=== PATIENT | male | born 1990 | race Caucasian/White ===

== ENCOUNTER 2016-08-03 13:45 | Emergency (ER) | payer SELFPAY ==
[2016-08-03 14:08] VITALS: BP 140/88; PULSE 75; TEMP 98.5; BMI 39.9
--- NOTE | 2016-08-03 14:09 | PDOC ---
History of Present Illness <Leah Cid - Last Filed: 08/03/16 15:07> - General History Source: Patient Exam Limitations: No Limitations - History of Present Illness Initial Comments: 26 yo M no PMH presents with R knee pain for past 6 days. 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 He noted the pain first over the weekend (it is now saturday), has progressively worsened over the week. He states that he has taken tylenol, naproxen, motrin, and oxycodone for the pain, they are not helping. He has continued to work despite the pain. He states that it is swollen, tender, feels warm compared to the L knee. He has difficulty ranging it due to pain. <Angela Mcmanus - Last Filed: 08/03/16 18:47> - General Chief Complaint: Pain Stated Complaint: RIGHT KNEE PAIN Time Seen by Provider: 08/03/16 13:55 Past History <Leah Cid - Last Filed: 08/03/16 15:07> - Past Medical History Kidney Stones: Yes Other medical history: GOUT - Surgical History Cholecystectomy: Yes - Psycho/Social/Smoking Cessation Hx Anxiety: No Suicidal Ideation: No Smoking Status: Yes Smoking History: Former smoker Have you smoked in the past 12 months: No Number of Cigarettes Smoked Daily: 0 If you are a former smoker, when did you quit?: 2016 Information on smoking cessation initiated: No 'Breaking Loose' booklet given: 11/07/13 Hx Alcohol Use: No Drug/Substance Use Hx: Yes (MARIJUANA) Substance Use Type: Alcohol, Marijuana <Angela Mcmanus - Last Filed: 08/03/16 18:47> - Past Medical History Allergies/Adverse Reactions: Allergies Allergy/AdvReac Type Severity Reaction Status Date / Time No Known Allergies Allergy Verified 08/03/16 14:00 Home Medications: Ambulatory Orders Allopurinol 300 mg PO DAILY 08/03/16 Ibuprofen [Motrin -] 600 mg PO TID PRN #21 tablet 08/03/16 Methylprednisolone [Medrol Dose Ben] 4 mg PO ASDIR #21 tablet 08/03/16 Oxycodone HCl/Acetaminophen [Percocet 5-325 mg Tablet] 1 tab PO Q6H PRN #12 tablet MDD 4 tabs 08/03/16 Review of Systems - Review of Systems Able to Perform ROS?: Yes Comments:: GENERAL/CONSTITUTIONAL: No fever or chills. No weakness. HEAD, EYES, EARS, NOSE AND THROAT: No change in vision. No ear pain or discharge. No sore throat. CARDIOVASCULAR: No chest pain or shortness of breath. RESPIRATORY: No cough, wheezing, or hemoptysis. GASTROINTESTINAL: No nausea, vomiting, diarrhea or constipation. GENITOURINARY: No dysuria, frequency, or change in urination. MUSCULOSKELETAL: +R knee pain and swelling. No neck or back pain. SKIN: No rash NEUROLOGIC: No headache, vertigo, loss of consciousness, or change in strength/ sensation. ENDOCRINE: No increased thirst. No abnormal weight change. HEMATOLOGIC/LYMPHATIC: No anemia, easy bleeding, or history of blood clots. ALLERGIC/IMMUNOLOGIC: No hives or skin allergy. <Angela Mcmanus - Last Filed: 08/03/16 18:47> *Physical Exam - Vital Signs Last Vital Signs Temp Pulse Resp BP Pulse Ox 98.5 F 75 16 140/88 100 08/03/16 13:55 08/03/16 13:55 08/03/16 13:55 08/03/16 13:55 08/03/16 13:55 <Leah Cid - Last Filed: 08/03/16 15:07> - Vital Signs Last Vital Signs Temp Pulse Resp BP Pulse Ox 98.5 F 75 16 140/88 100 08/03/16 13:55 08/03/16 13:55 08/03/16 13:55 08/03/16 13:55 08/03/16 13:55 - Physical Exam Comments: GENERAL: Awake, alert, and fully oriented, in no acute distress EXTREMITIES: R knee with slightly decreased active ROM due to pain (has difficulty fully extending the lower leg). +Moderate R knee effusion. No warmth , no erythema overlying. No ligamentous instability. +Pain elicited on stressing the medial meniscus. Remainder of extremities with normal range of motion, no edema. No clubbing or cyanosis. No cords, erythema, or tenderness NEUROLOGICAL: Cranial nerves II through XII grossly intact. Normal speech, normal gait SKIN: Warm, Dry, normal turgor, no rashes or lesions noted. <Angela Mcmanus - Last Filed: 08/03/16 18:47> ED Treatment Course - RADIOLOGY Radiograph Interpretation: 08/03/16 15:07 Right knee x-ray as reported by Dr. Keating reports suprapatellar joint effusion <Leah Cid - Last Filed: 08/03/16 15:07> Medical Decision Making - Medical Decision Making 08/03/16 15:10 Symptoms likely due to ligamentous injury in the knee, possibly the meniscus. No signs of septic joint. I-Stop Reference #: [id number]- no red flags. Will give rx for percocet, motrin, and medrol dose ben. Patient recently lost his insurance, so I will give him follow-up information for the [facility]. Also counseled him to fill out the paperwork to reinstate his insurance, or apply under the RO. I ISHAN-wrapped his knee, as he has pain with straightening his leg, immobilizer would be painful. He declined crutches. <Angela Mcmanus - Last Filed: 08/03/16 18:47> *DC/Admit/Observation/Transfer - Attestations Scribe Attestion: 08/03/16 15:08 Documentation prepared by Leah Cid, acting as medical/surgery registered nurse for Angela Mcmanus MD. <Leah Cid - Last Filed: 08/03/16 15:07> - Discharge Dispostion Admit: No <Angela Mcmanus - Last Filed: 08/03/16 18:47> Diagnosis at time of Disposition: Knee pain, right Qualifiers: Chronicity: acute Qualified Code(s): M25.561 - Pain in right knee - Discharge Dispostion Disposition: HOME Condition at time of disposition: Stable - Prescriptions Prescriptions: Methylprednisolone [Medrol Dose Ben] 4 mg PO ASDIR #21 tablet Ibuprofen [Motrin -] 600 mg PO TID PRN #21 tablet PRN Reason: Pain Oxycodone HCl/Acetaminophen [Percocet 5-325 mg Tablet] 1 tab PO Q6H PRN #12 tablet MDD 4 tabs PRN Reason: Severe Pain - Referrals Referrals: Alen Henderson MD [Staff Physician] - Cassie Guthrie MD [Staff Physician] - Dena Siddiqui MD [Staff Physician] - - Patient Instructions Printed Discharge Instructions: DI for Knee Pain
== END 2016-08-03 15:31 | disposition home or self-care (01) ==
LOC: FER 13:45
DX: M25.561 Pain in right knee (principal); Z87.442 Personal history of urinary calculi; Z87.891 Personal history of nicotine dependence
CPT/HCPCS: 73560-TC-RT; 99282-25

== ENCOUNTER 2016-11-30 07:03 | Emergency (ER) | payer OTHER ==
[2016-11-30] MEDS ORDERED: KETOROLAC TROMETHAMINE 30 MG/1 ML VIAL IVPUSH ONE (07:10)
[2016-11-30] MEDS ORDERED: SODIUM CHLORIDE 1,000 ML IV STA (07:10)
[2016-11-30 07:11] VITALS: BP 141/100; PULSE 55; TEMP 97.4; BMI 39.9
[2016-11-30] MEDS ORDERED: morphine CARPU-JECT 4 MG/1 ML DISP.SYRIN IVPUSH ONE (07:12)
[2016-11-30] MEDS ORDERED: KETOROLAC TROMETHAMINE 30 MG/1 ML VIAL ONE (07:21)
[2016-11-30] MEDS ORDERED: morphine CARPU-JECT 4 MG/1 ML DISP.SYRIN ONE (07:21)
[2016-11-30 07:28] LABS: BASOPHIL 1.8 % (0-2.0); EOSINOPHIL 0.9 % (0-4.5); MEAN CELL VOLUME 82.8 fl (80-96); MEAN PLT VOLUME 8.4 fl (7.5-11.1); NEUTROPHILS 51.3 % (42.8-82.8); PLATELET COUNT 279 K/MM3 (134-434); RDW 13.1 % (11.9-15.9); WHITE BLOOD COUNT 10.5 K/mm3 (4.0-10.8)
--- NOTE | 2016-11-30 07:51 | PDOC ---
History of Present Illness - General Chief Complaint: Pain, Acute Stated Complaint: LT FLANK PAIN Time Seen by Provider: 11/30/16 07:09 History Source: Patient Exam Limitations: No Limitations - History of Present Illness Initial Comments: 11/30/16 07:14 This patient is a 26 yo M with a history of gout and kidney stones Pt states that he was well yesterday He awoke at approximately 5 am for work and noted left flank pain Pain is described as sharp, rate of 10/10, located in flank, pain is now constant (previously, pain was intermittent) No fevers or chills No hematuria, no dysuria Pt states he has previously had a kidney stone that did not require surgical intervention PMH: gout PSH: Cholecystectomy Meds: denies ALL: NKDA Social: denies alcohol, drug, cigarette use, 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 CARDIOVASCULAR: No: chest pain, lightheadedness, palpitations, syncope RESPIRATORY: No: cough, shortness of breath, wheezing, hemoptysis, stridor. GASTROINTESTINAL: Yes: nausea and vomiting x 2 No: diarrhea, abdominal cramping GENITOURINARY: Yes: left flank pain No: dysuria, hematuria, frequency, urgency, MUSCULOSKELETAL: Yes: flank pain No: neck pain, joint pain, muscle swelling or pain GENERAL: The patient is in no acute distress. HEAD: Normal with no signs of trauma. EYES: PERRLA, EOMI, sclera anicteric, conjunctiva clear. ENT: Ears normal, nares patent, oropharynx clear without exudates. Moist mucous membranes. LUNGS: Breath sounds equal, clear to auscultation bilaterally. No wheezes, and no crackles. HEART: Regular rate and rhythm, normal S1 and S2 without murmur, rub or gallop. ABDOMEN: Soft, LLQ tender to palpation, left flank CVA tenderness. No guarding , no rebound. No masses palpable. EXTREMITIES: Normal range of motion, no edema. No clubbing or cyanosis. No erythema, or tenderness. NEUROLOGICAL: Cranial nerves II through XII grossly intact. Normal speech. No focal neurological deficits. MUSCULOSKELETAL: Back non-tender to palpation, no CVA tenderness SKIN: Warm, Dry, normal turgor, no rashes or lesions noted. 11/30/16 08:24 Past History - Past Medical History Allergies/Adverse Reactions: Allergies Allergy/AdvReac Type Severity Reaction Status Date / Time No Known Allergies Allergy Verified 08/03/16 14:00 Home Medications: Ambulatory Orders Naproxen [Naprosyn -] 500 mg PO BID PRN #14 tablet 11/30/16 Oxycodone HCl/Acetaminophen [Percocet 5-325 mg Tablet -] 1 tab PO Q6H PRN #12 tablet MDD 4 11/30/16 Tamsulosin HCl [Flomax] 0.4 mg PO HS #10 capsule 11/30/16 Kidney Stones: Yes - Surgical History Cholecystectomy: Yes - Psycho/Social/Smoking Cessation Hx Anxiety: No Suicidal Ideation: No Smoking Status: Yes Smoking History: Unknown if ever smoked Have you smoked in the past 12 months: No Number of Cigarettes Smoked Daily: 0 If you are a former smoker, when did you quit?: 2015 'Breaking Loose' booklet given: 11/07/13 Hx Alcohol Use: No Drug/Substance Use Hx: Yes (MARIJUANA) Substance Use Type: Alcohol, Marijuana *Physical Exam - Vital Signs Last Vital Signs Temp Pulse Resp BP Pulse Ox 97.4 F L 55 L 18 141/100 97 11/30/16 07:08 11/30/16 07:08 11/30/16 07:08 11/30/16 07:08 11/30/16 07:08 ED Treatment Course - LABORATORY CBC & Chemistry Diagram: 11/30/16 07:15 11/30/16 07:20 - RADIOLOGY Radiology Studies Ordered: Category Date Time Status SPIRAL- RENAL-STONE CT [CT] Stat CT Scan 11/30/16 07:12 Ordered Medical Decision Making - Medical Decision Making 11/30/16 08:23 POssible kidney stone No prior imaging in system Will do: labs CT NS Pain control Will re assess 11/30/16 08:23 Laboratory Tests 11/30/16 11/30/16 11/30/16 07:11 07:15 07:20 WBC 10.5 Hgb 16.2 Hct 46.4 Plt Count 279 BUN 14 Creatinine 1.0 Urine Protein 1+ H Urine Blood 3+ H Urine Nitrite Negative Ur Leukocyte Esterase Negative 11/30/16 08:24 Pain is now 5/10 Pt has heart burn Refuses Maalox 11/30/16 09:06 4-5 MM proximal stone with mild hydro Will discharge to home with Urology follow up No signs of uti *DC/Admit/Observation/Transfer Diagnosis at time of Disposition: Kidney stone on left side - Discharge Dispostion Disposition: HOME Condition at time of disposition: Stable Admit: No - Prescriptions Prescriptions: Tamsulosin HCl [Flomax] 0.4 mg PO HS #10 capsule Naproxen [Naprosyn -] 500 mg PO BID PRN #14 tablet PRN Reason: Pain Oxycodone HCl/Acetaminophen [Percocet 5-325 mg Tablet -] 1 tab PO Q6H PRN #12 tablet MDD 4 PRN Reason: Severe Pain - Patient Instructions Printed Discharge Instructions: DI for Kidney Stones Additional Instructions: Mr. Lou Thank you for coming into the emergency Department today. You have a left-sided kidney stone. Please stay hydrated, take pain medications as prescribed. You should follow up with a urologist. You should strain your urine as well Return to the ER for fevers, chills, increased/intractable pain, any other concerns or complaints - Post Discharge Activity Work/School Note: Back to Work
[2016-11-30 07:58] LABS: PH,URINE 5.5 (4.5-8); URINE BILIRUBIN Negative (NEGATIVE); URINE BLOOD 3+ (NEGATIVE); URINE GLUCOSE (UA) Negative (NEGATIVE); URINE KETONE Negative (NEGATIVE); URINE LEUK ESTERASE Negative (NEGATIVE); URINE NITRITE Negative (NEGATIVE); URINE PROTEIN 1+ (NEGATIVE); URINE UROBILINOGEN 0.2 (0.2-1.0)
[2016-11-30 07:59] LABS: URINE APPEARANCE CLOUDY; URINE COLOR YELLOW
[2016-11-30 08:21] LABS: ANION GAP 11 (8-16); CALCIUM 9.7 mg/dl (8.4-10.2); CO2 21 mmol/L (22-28); GLUCOSE,RANDOM 123 mg/dl (74-106)
[2016-11-30 12:48] LABS: URINE BACTERIA NEGATIVE /hpf (NEGATIVE); URINE RBC 20-30 /hpf (0-3); URINE WBC 0-2 (3-5)
== END 2016-11-30 09:15 | disposition home or self-care (01) ==
LOC: FER 07:03
PROC: 3E0333Z Introduction of Anti-inflammatory into Peripheral Vein, Percutaneous Approach (ICD-10-PCS; principal; 2016-11-30)
PROC: 3E033NZ Introduction of Analgesics, Hypnotics, Sedatives into Peripheral Vein, Percutaneous Approach (ICD-10-PCS; 2016-11-30)
PROC: 3E0337Z Introduction of Electrolytic and Water Balance Substance into Peripheral Vein, Percutaneous Approach (ICD-10-PCS; 2016-11-30)
DX: N23 Unspecified renal colic (principal)
CPT/HCPCS: 36415; 74176; 80048; 81003; 81015; 85025; 87086; 99282-25

== ENCOUNTER 2017-06-16 07:36 | Emergency (ER) | payer SELFPAY ==
[2017-06-16] MEDS ORDERED: IBUPROFEN 600 MG TABLET (FP) PO ONE ×2 (08:10→08:26)
--- NOTE | 2017-06-16 08:10 | PDOC ---
History of Present Illness - General Chief Complaint: Pain Stated Complaint: rt wrist pain Time Seen by Provider: 06/16/17 07:42 History Source: Patient Exam Limitations: No Limitations - History of Present Illness Initial Comments: 06/16/17 07:47 Pt presents to the ED complaining of R wrist pain that began after lifting weights at the gym. Denies injuries. 06/16/17 08:25 Occurred: reports: yesterday Severity: reports: mild Upper Extremity Pain Location: right: wrist Method of Injury: reports: unknown Modifying Factors: improves with: None Extremity Pain Location - Extremity Pain Location Extremity Pain Locations: right: forearm (pain in ulnar side of R wrist) Past History - Past Medical History Allergies/Adverse Reactions: Allergies Allergy/AdvReac Type Severity Reaction Status Date / Time No Known Allergies Allergy Verified 06/16/17 07:38 Home Medications: Ambulatory Orders Oxycodone HCl/Acetaminophen [Percocet 5-325 mg Tablet -] 1 tab PO Q6H PRN #12 tablet MDD 4 11/30/16 Acetaminophen [Tylenol] 500 mg PO PRN PRN 06/16/17 Ibuprofen 600 mg PO TID PRN #30 tablet 06/16/17 Ibuprofen [Motrin -] 800 mg PO PRN PRN 06/16/17 Kidney Stones: Yes - Surgical History Cholecystectomy: Yes - Suicide/Smoking/Psychosocial Hx Smoking Status: Yes Smoking History: Unknown if ever smoked Have you smoked in the past 12 months: No Number of Cigarettes Smoked Daily: 0 If you are a former smoker, when did you quit?: 2015 'Breaking Loose' booklet given: 11/07/13 Hx Alcohol Use: No Drug/Substance Use Hx: Yes (MARIJUANA) Substance Use Type: Alcohol, Marijuana Review of Systems - Review of Systems Able to Perform ROS?: Yes Is the patient limited Maldivian proficient: No Musculoskeletal: Yes: Symptoms Reported, Joint Pain *Physical Exam - Physical Exam Musculoskeletal: positive: Normal Inspection Extremity: positive: Normal Capillary Refill, Normal Inspection, Pelvis Stable. negative: Normal Range of Motion (+ tendernes at the wrist. + slightly decreased ROM.), Tender, Coldness, Cyanosis, Delayed Capillary Refill, Pedal Edema, Swelling, Calf Tenderness, Erythema, Inflammation, Other *DC/Admit/Observation/Transfer Diagnosis at time of Disposition: Wrist strain Qualifiers: Encounter type: initial encounter Laterality: right Qualified Code(s): S66.911A - Strain of unspecified muscle, fascia and tendon at wrist and hand level, right hand, initial encounter - Discharge Dispostion Disposition: HOME Condition at time of disposition: Good Admit: No - Prescriptions Prescriptions: Ibuprofen 600 mg PO TID PRN #30 tablet PRN Reason: Pain - Referrals - Patient Instructions Printed Discharge Instructions: DI for Wrist Strain Additional Instructions: return to the ED for severe pain, worsening swelling, cold numb blue swollen hand or wrist, other new or worsening symptoms. Follow up with orthopedics if symptoms are not improving within one week. - Post Discharge Activity
[2017-06-16 09:38] VITALS: BP 144/100; PULSE 73; TEMP 98.3; BMI 36.9
== END 2017-06-16 08:43 | disposition home or self-care (01) ==
LOC: FER 07:36
DX: S66.911A Strain of unspecified muscle, fascia and tendon at wrist and hand level, right hand, initial encounter (principal); X58.XXXA Exposure to other specified factors, initial encounter; Y93.89 Activity, other specified; Y92.9 Unspecified place or not applicable
CPT/HCPCS: 73110-TC-RT-FY; 99282-25

== ENCOUNTER 2017-07-22 20:30 | Emergency (ER) | payer SELFPAY ==
--- NOTE | 2017-07-22 20:41 | PDOC ---
History of Present Illness - General Chief Complaint: Pain Stated Complaint: FLANK/BACK PAIN, RIGHT KNEE SWELLING Time Seen by Provider: 07/22/17 20:39 History Source: Patient Exam Limitations: No Limitations - History of Present Illness Initial Comments: 07/22/17 23:33 This is a 27-year-old male who comes in complaining of right knee discomfort and pain. Patient is been here a number times in the past for similar symptoms. Patient had a job that required a lot of kneeling and was diagnosed with prepatellar bursitis. Patient said he recently quit his job and is now has a different job that requires a lot of walking. Patient doesn't have any insurance so he didn't follow up with anybody regarding the discomfort. Patient otherwise denies any fevers or chills. Patient also was complaining of some mild urinary symptoms review of his history was noted that he approximately 4 days ago he was diagnosed with a 8 mm distal ureteral stone which is also not followed up with anybody he denies any fevers or chills. Patient really was told that he has some renal insufficiency so should not taking any NSAIDs. Patient also has a history of gout and did start himself on allopurinol. PAST MEDICAL HISTORY right knee: There is some prepatellar swelling and a palpable collection as per history of present illness PAST SURGICAL HISTORY: no significant history FAMILY HISTORY: no pertinant history SOCIAL HISTORY: Pt lives with family and is employed. MEDICATIONS: reviewed ALLERGIES: As per nursing notes Review of Systems General: No fevers or chills, no weakness, no weight loss HEENT: No change in vision. No sore throat,. No ear pain CardioVascular: No chest pain or shortness of breath Respiratory:No cough, or wheezing. Gastrointestinal: no nausea, vomitting, diarrhea or constipation, No rectal bleeding Genitourinary: No dysuria, hematuria, or frequency Musculoskeletal: No joint or muscle pain or swelling Neurologic: No headache, vertigo, dizziness or loss of consciousness Psychiatric: nor depression Skin: No rashes or easy bruising Endocrine: no increased thirst or abnormal weight change Allergic: no skin or latex allergy All other systems reviewed and normal GENERAL: The patient is awake, alert, and fully oriented, in no acute distress. HEAD: Normal with no signs of trauma. EYES: Pupils equal, round and reactive to light, extraocular movements intact, sclera anicteric, conjunctiva clear. EXTREMITIES: Normal range of motion, no edema. There is prepatellar swelling and a palpable collection. There is no bony tenderness. There is no erythema, there is a slight increase in warmth. Neurovascular distal is intact. NEUROLOGICAL: Normal speech, normal gait. grossly intact PSYCH: Normal mood, normal affect. SKIN: Warm, Dry, normal turgor, no rashes or lesions noted. Assessment and plan: This is a 27-year-old male with prepatellar bursitis that is cleared. Patient was given an Michael wrap and his job no longer requires significant amount of kneeling on his knees so most likely will resolve with just some Michael wrap compression. However he was told he needs to followed up with an orthopedist if it does not resolve. In addition to that patient was told it is very important that he follow-up with a urologist regarding his kidney stone. Patient was noted to have a mild urinary tract infection in the setting of a stone that may have recently passed or not past I will start him on Macrobid. Past History - Past Medical History Allergies/Adverse Reactions: Allergies Allergy/AdvReac Type Severity Reaction Status Date / Time No Known Allergies Allergy Verified 07/22/17 20:43 Home Medications: Ambulatory Orders Oxycodone HCl/Acetaminophen [Percocet 5-325 mg Tablet] 1 tab PO Q6H PRN #12 tablet MDD 4 07/18/17 Tamsulosin HCl [Flomax] 0.4 mg PO DAILY #10 capsule 07/18/17 Allopurinol 300 mg PO DAILY 07/22/17 Colchicine [Colcrys] 0.6 mg PO DAILY 07/22/17 Nitrofurantoin Monohyd/M-Cryst [Macrobid -] 100 mg PO BID #14 capsule 07/22/17 COPD: No Kidney Stones: Yes - Surgical History Cholecystectomy: Yes - Suicide/Smoking/Psychosocial Hx Smoking Status: Yes Smoking History: Former smoker Have you smoked in the past 12 months: No Number of Cigarettes Smoked Daily: 0 If you are a former smoker, when did you quit?: 2015 'Breaking Loose' booklet given: 11/07/13 Hx Alcohol Use: No Drug/Substance Use Hx: No Substance Use Type: Alcohol, Marijuana *DC/Admit/Observation/Transfer Diagnosis at time of Disposition: Cystitis Prepatellar bursitis Qualifiers: Laterality: right Qualified Code(s): M70.41 - Prepatellar bursitis, right knee - Discharge Dispostion Disposition: HOME Condition at time of disposition: Good Admit: No - Prescriptions Prescriptions: Nitrofurantoin Monohyd/M-Cryst [Macrobid -] 100 mg PO BID #14 capsule - Referrals - Patient Instructions Additional Instructions: Continue to take your Percocet as needed for pain in addition to that you can take ibuprofen 2 tablets once a day try to limit the ibuprofen as much as possible. Wear the Michael wrap to help give the knee some support. [facility] and try to get an appointment to follow-up in the orthotic clinic and the urology clinic. Return to the emergency department immediately with ANY new, persistent or worsening symptoms. Continue any medications as previously prescribed by your physician. You should follow up with your primary doctor as soon as possible regarding today's emergency department visit. . Please make sure your doctor reviews the results of your emergency evaluation. Thank you for coming to the Emergency Department today for your care. It was a pleasure to see you today. Please note that your evaluation is INCOMPLETE until you follow-up with your doctor. - Post Discharge Activity
[2017-07-22 20:49] LABS: URINE APPEARANCE Clear; URINE BILIRUBIN Negative (NEGATIVE); URINE GLUCOSE (UA) Negative (NEGATIVE); URINE KETONE Negative (NEGATIVE); URINE LEUK ESTERASE Negative (NEGATIVE); URINE NITRITE Negative (NEGATIVE); URINE UROBILINOGEN 0.2 (0.2-1.0)
[2017-07-22 20:50] LABS: URINE BLOOD 2+ (NEGATIVE); URINE COLOR YELLOW; URINE PROTEIN 3+ (NEGATIVE)
[2017-07-22 20:52] VITALS: BP 153/112; PULSE 92; TEMP 99.2; BMI 36.9
[2017-07-22 21:00] LABS: URINE BACTERIA FEW /hpf (NEGATIVE); URINE WBC 0-2 (0-2)
[2017-07-22] MEDS ORDERED: NITROFURANTOIN MACROCRYSTAL 50 MG CAPSULE (FP) PO SCH (21:30)
== END 2017-07-22 21:24 | disposition home or self-care (01) ==
LOC: FER 20:30
DX: M70.41 Prepatellar bursitis, right knee (principal); N30.90 Cystitis, unspecified without hematuria; Z87.891 Personal history of nicotine dependence; Z87.442 Personal history of urinary calculi
CPT/HCPCS: 81003; 81015; 99283-25

== ENCOUNTER 2018-03-01 20:29 | Emergency (ER) | payer OTHER ==
[2018-03-01 20:39] VITALS: BP 153/88; PULSE 86; TEMP 98.3; BMI 34.0
--- NOTE | 2018-03-01 21:18 | PDOC ---
History of Present Illness - General History Source: Patient Exam Limitations: No Limitations - History of Present Illness Initial Comments: 03/01/18 22:33 The patient is a 27 year old male, with a significant PMH of gout who presents to the emergency department with left ankle and heel pain with swelling since yesterday night. 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 Patient took his colchicine this morning and at 2PM today. Patient admits to having similar pain from his gout in the past. Patient denies eating anything that may have set off his gout. Patient states he is unable to bear weight on his left foot. Patient is in the process of finding a new PCP. The patient denies chest pain, shortness of breath, headache and dizziness. Denies fever, chills, nausea, vomit, diarrhea and constipation. Denies dysuria, frequency, urgency and hematuria. Allergies: NKA Past surgical history: None reported. Social history: No reported alcohol, drug or cigarette use. <Maria Guadalupe Cruz - Last Filed: 03/01/18 22:33> <Arleen Krishnan - Last Filed: 03/02/18 03:11> - General Chief Complaint: Pain, Acute Stated Complaint: PAIN LEFT HEEL AND ANKLE Time Seen by Provider: 03/01/18 20:31 Past History <Maria Guadalupe Cruz - Last Filed: 03/01/18 22:33> - Past Medical History COPD: No Kidney Stones: Yes Other medical history: GOUT - Surgical History Cholecystectomy: Yes - Suicide/Smoking/Psychosocial Hx Smoking Status: Yes Smoking History: Former smoker Have you smoked in the past 12 months: No Number of Cigarettes Smoked Daily: 0 If you are a former smoker, when did you quit?: 2016 Information on smoking cessation initiated: No 'Breaking Loose' booklet given: 11/07/13 Hx Alcohol Use: No Drug/Substance Use Hx: No Substance Use Type: Alcohol, Marijuana <Arleen Krishnan - Last Filed: 03/02/18 03:11> - Past Medical History Allergies/Adverse Reactions: Allergies Allergy/AdvReac Type Severity Reaction Status Date / Time No Known Allergies Allergy Verified 03/01/18 20:31 Home Medications: Ambulatory Orders NK [No Known Home Medication] 03/01/18 Review of Systems - Review of Systems Able to Perform ROS?: Yes Comments:: 03/01/18 22:34 ADULT ROS GENERAL/CONSTITUTIONAL: No fever or chills. No weakness. HEAD, EYES, EARS, NOSE AND THROAT: No change in vision. No ear pain or discharge. No sore throat. CARDIOVASCULAR: No chest pain or shortness of breath. RESPIRATORY: No cough, wheezing, or hemoptysis. GASTROINTESTINAL: No nausea, vomiting, diarrhea or constipation. GENITOURINARY: No dysuria, frequency, or change in urination. MUSCULOSKELETAL: No muscle swelling or pain. No neck or back pain. (+) Left ankle and heel pain with swelling. SKIN: No rash NEUROLOGIC: No headache, vertigo, loss of consciousness, or change in strength/ sensation. ENDOCRINE: No increased thirst. No abnormal weight change. HEMATOLOGIC/LYMPHATIC: No anemia, easy bleeding, or history of blood clots. ALLERGIC/IMMUNOLOGIC: No hives or skin allergy. <Maria Guadalupe Cruz - Last Filed: 03/01/18 22:33> *Physical Exam - Vital Signs Last Vital Signs Temp Pulse Resp BP Pulse Ox 98.3 F 86 17 153/88 100 03/01/18 20:32 03/01/18 20:32 03/01/18 20:32 03/01/18 20:32 03/01/18 20:32 - Physical Exam Comments: 03/01/18 22:34 ADULT EXAM GENERAL: Awake, alert, and fully oriented, in no acute distress HEAD: No signs of trauma EYES: PERRLA, EOMI, sclera anicteric, conjunctiva clear ENT: Auricles normal inspection, hearing grossly normal, nares patent, oropharynx clear without exudates. Moist mucosa NECK: Normal ROM, supple, no lymphadenopathy, JVD, or masses LUNGS: Breath sounds equal, clear to auscultation bilaterally. No wheezes, and no crackles HEART: Regular rate and rhythm, normal S1 and S2, no murmurs, rubs or gallops ABDOMEN: Soft, nontender, normoactive bowel sounds. No guarding, no rebound. No masses EXTREMITIES: No clubbing or cyanosis. No cords, erythema. (+) Moderately edematous left ankle and slightly warm to touch. (+) Painful with active and passive range of motion. (+) Left calcaneus is slightly tender and edematous. Remainder of the foot is nontender and not edematous. NEUROLOGICAL: Cranial nerves II through XII grossly intact. Normal speech, normal gait SKIN: Warm, Dry, normal turgor, no rashes or lesions noted. <Maria Guadalupe Cruz - Last Filed: 03/01/18 22:33> - Vital Signs Last Vital Signs Temp Pulse Resp BP Pulse Ox 98.3 F 86 17 153/88 100 03/01/18 20:32 03/01/18 20:32 03/01/18 20:32 03/01/18 20:32 03/01/18 20:32 <Arleen Krishnan - Last Filed: 03/02/18 03:11> Progress Note - Progress Note Progress Note: Documentation has been prepared under my direction and personally reviewed by me in its entirety. I attest that this documented accurately reflects all work, treatment, procedures and medical decision making performed by me. <Arleen Krishnan - Last Filed: 03/02/18 03:11> Medical Decision Making - Medical Decision Making As noted above, this 27-year-old man with a history of gout presents with several day history of progressive left ankle pain. Pain is consistent with his gout episodes and he has no known trauma to the area. Exam as noted. Left ankle/foot x-ray performed: No evidence of acute fracture/dislocation or DJD. Patient states that he normally does not take nonsteroidal anti-inflammatory medication for his acute gout episodes because he wants to avoid any renal damage secondary to NSAIDs (patient had received ibuprofen 600 mg by mouth when he arrived in the ER ). He states he normally takes colchicine and smokes marijuana for relief of his acute episodes. He states he took colchicine yesterday (only 2 doses) without significant relief. He also has been prescribed allopurinol but is not compliant with it because he wants to avoid taking medications. He states that he has recently received insurance and is planning on following up with a general medical doctor in the near future. Patient will be given crutches for ambulation and work note (no work until Saturday, March 12). Meanwhile, the patient should continue the colchicine as prescribed; he can also take occasional anti-inflammatory medications. He should plan on following up with his new general doctor within the next 48-72 hours. <Arleen Krishnan - Last Filed: 03/02/18 03:11> *DC/Admit/Observation/Transfer - Attestations Scribe Attestion: 03/01/18 22:34 Documentation prepared by Maria Guadalupe Cruz, acting as medical transcription radiology for Arleen Krishnan MD. <Maria Guadalupe Cruz - Last Filed: 03/01/18 22:33> <Arleen Krishnan - Last Filed: 03/02/18 03:11> Diagnosis at time of Disposition: Acute gout Qualifiers: Gout site: ankle Gout etiology: unspecified cause Laterality: left Qualified Code(s): M10.9 - Gout, unspecified - Discharge Dispostion Disposition: HOME Condition at time of disposition: Stable - Patient Instructions Printed Discharge Instructions: Gout Additional Instructions: continue colchicine as previously prescribed crutches for ambulation as needed no work until 03/12 followup with your doctor within the next 3 days - Post Discharge Activity Forms/Work/School Notes: Back to Work
[2018-03-01] MEDS ORDERED: IBUPROFEN 600 MG TABLET (FP) PO ONE (22:11)
== END 2018-03-01 22:34 | disposition home or self-care (01) ==
LOC: FER 20:29
DX: M10.9 Gout, unspecified (principal); Z87.891 Personal history of nicotine dependence
CPT/HCPCS: 73610-TC-LT-FY; 73630-TC-LT; 99281-25

== ENCOUNTER 2018-09-14 21:12 | Emergency (ER) | payer SELFPAY | END 2018-09-14 22:08 | disposition home or self-care (01) | LOC: FER 21:12 ==

== ENCOUNTER 2018-10-26 07:54 | Inpatient (IN) | payer SELFPAY ==
[2018-10-26] MEDS ORDERED: ONDANSETRON 4 MG/2 ML VIAL IVPB ONE (07:56)
[2018-10-26] MEDS ORDERED: KETOROLAC TROMETHAMINE 30 MG/1 ML VIAL IVPUSH ONE (07:56)
[2018-10-26] MEDS ORDERED: SODIUM CHLORIDE 1,000 ML IV STA ×2 (07:57→09:41)
[2018-10-26] MEDS ORDERED: ONDANSETRON 4 MG/2 ML VIAL ONE (08:03)
[2018-10-26] MEDS ORDERED: KETOROLAC TROMETHAMINE 30 MG/1 ML VIAL ONE (08:03)
--- NOTE | 2018-10-26 08:03 | PDOC ---
History of Present Illness - General Chief Complaint: Pain Stated Complaint: back pain, renal colic Time Seen by Provider: 10/26/18 07:56 History Source: Patient, Old Records Exam Limitations: No Limitations - History of Present Illness Initial Comments: 10/26/18 07:58 28 yo M c/ pmh renal colic p/w L flank pain since yesterday. Yesterday, noted some dull left sided intermittent pain radiating to LLQ. Pain subsided but intensified last night. Reported some nausea and vomiting. But denies fevers, chills. Associated with hematuria. States feels exactly like his previous kidney stones, which was years ago. Took some motrin overnight with some relief. Denies testicular or genital pain. Past History - Past Medical History Allergies/Adverse Reactions: Allergies Allergy/AdvReac Type Severity Reaction Status Date / Time No Known Allergies Allergy Verified 10/26/18 07:55 Home Medications: Ambulatory Orders NK [No Known Home Medication] 03/01/18 COPD: No Kidney Stones: Yes - Surgical History Cholecystectomy: Yes - Suicide/Smoking/Psychosocial Hx Smoking Status: Yes Smoking History: Former smoker Have you smoked in the past 12 months: No Number of Cigarettes Smoked Daily: 0 If you are a former smoker, when did you quit?: 2015 'Breaking Loose' booklet given: 11/07/13 Hx Alcohol Use: No Drug/Substance Use Hx: No Substance Use Type: Alcohol, Marijuana Review of Systems - Review of Systems Able to Perform ROS?: Yes Comments:: 10/26/18 08:00 GENERAL/CONSTITUTIONAL: [No fever or chills. No weakness. No weight change.] HEAD, EYES, EARS, NOSE AND THROAT: [No change in vision. No ear pain or discharge. No sore throat.] CARDIOVASCULAR: [No chest pain or shortness of breath.] RESPIRATORY: [No cough, wheezing, or hemoptysis.] GASTROINTESTINAL: [No diarrhea or constipation. No rectal bleeding.] + nausea/ vomiting. + left sided flank pain GENITOURINARY: [No dysuria, frequency, or change in urination.] MUSCULOSKELETAL: [No joint or muscle swelling or pain. No neck or back pain.] SKIN AND BREASTS: [No rash or easy bruising.] NEUROLOGIC: [No headache, vertigo, loss of consciousness, or loss of sensation.] PSYCHIATRIC: [No depression or anxiety.] ENDOCRINE: [No increased thirst. No abnormal weight change.] HEMATOLOGIC/LYMPHATIC: [No anemia, easy bleeding, or history of blood clots.] ALLERGIC/IMMUNOLOGIC: [No hives or skin allergy. No latex allergy.] *Physical Exam - Physical Exam Comments: 10/26/18 08:01 GENERAL: Awake, alert, and fully oriented, uncomfortable appearing. + Obese HEAD: No signs of trauma EYES: EOMI, sclera anicteric, conjunctiva clear ENT: Auricles normal inspection, hearing grossly normal, nares patent, oropharynx clear without exudates. Moist mucosa NECK: Normal ROM, supple ABDOMEN: Soft, mildly TTP LLQ. +Left sided CVA tenderness. No guarding, no rebound. No masses EXTREMITIES: Normal range of motion, no edema. NEUROLOGICAL: Cranial nerves II through XII grossly intact. Normal speech, normal gait SKIN: Warm, Dry, normal turgor, no rashes or lesions noted. ED Treatment Course - LABORATORY CBC & Chemistry Diagram: 10/26/18 08:15 10/26/18 08:15 - RADIOLOGY Radiology Studies Ordered: Category Date Time Status SPIRAL- RENAL-STONE CT [CT] Stat CT Scan 10/26/18 07:56 Ordered Medical Decision Making - Medical Decision Making 10/26/18 08:02 Impression: Likely renal colic. Will obtain spiral CT to r/o kidney stones. Labs including CBC, CMP, UA/UC IVF, anti-emetics, pain control and reassess. 10/26/18 09:12 CBC, BMP 10/26/18 08:15 10/26/18 08:15 CMP Sodium 138 mmol/L (136-145) 10/26/18 08:15 Potassium 4.3 mmol/L (3.5-5.1) 10/26/18 08:15 Chloride 103 mmol/L (98-107) 10/26/18 08:15 Carbon Dioxide 26 mmol/L (21-32) 10/26/18 08:15 Anion Gap 9 MMOL/L (8-16) 10/26/18 08:15 BUN 12.0 mg/dl (7-18) 10/26/18 08:15 Creatinine 1.6 mg/dl (0.55-1.3) H 10/26/18 08:15 Est GFR (CKD-EPI)AfAm 66.02 10/26/18 08:15 Est GFR (CKD-EPI)NonAf 56.96 10/26/18 08:15 Random Glucose 118 mg/dl (74-106) H 10/26/18 08:15 Calcium 9.4 mg/dl (8.5-10) 10/26/18 08:15 Total Bilirubin 1.0 mg/dl (0.2-1) 10/26/18 08:15 AST 59 U/L (15-37) H 10/26/18 08:15 ALT 67 U/L (13-61) H 10/26/18 08:15 Alkaline Phosphatase 45 U/L (45-117) 10/26/18 08:15 Total Protein 8.5 g/dl (6.4-8.2) H 10/26/18 08:15 Albumin 4.7 g/dl (3.4-5.0) 10/26/18 08:[address] demonstrates 7mm distal renal stone in ureter with mild to moderate hydronephrosis. Cr noted to be 1.6. Prior labs from 2018, shows Cr elevated, but pt reports no known CKD. Pt still in pain, requests more pain medications. Still awaiting patient to give us urine sample, pt is still receiving IV fluids. Given size of kidney stone, hydronephrosis, and Cr of 1.6, urologist Dr. Steve Cook paged. 10/26/18 09:[address] Garcia. Given the patient's circumstances, requests patient to be transferred to [facility] for more definitive management i.e. procedure. Plan discussed with patient who agrees with plan and for transfer to [facility] given equipment to perform procedure is at [facility]. Pt anticipated to go to OR tomorrow morning. Case discussed with [facility] hospitalist (pt has no PMD). Hospitalist accepts patient to [facility] to med/surg admission. Case discussed in detail with admitting physician including history, physical exam and ancillary studies. Admitting physician has assumed care for the patient, will follow all pending diagnostics and will complete the evaluation and treatment. 10/26/18 10:10 Urine Test Results Urine Color Yellow 10/26/18 09:45 Urine Appearance Clear 10/26/18 09:45 Urine pH 6.0 (4.5-8) 10/26/18 09:45 Urine Protein Trace (NEGATIVE) 10/26/18 09:45 Urine Glucose (UA) Negative (NEGATIVE) 10/26/18 09:45 Urine Ketones Trace (NEGATIVE) 10/26/18 09:45 Urine Blood 2+ (NEGATIVE) H 10/26/18 09:45 Urine Nitrite Negative (NEGATIVE) 10/26/18 09:45 Urine Bilirubin Negative (NEGATIVE) 10/26/18 09:45 Ur Leukocyte Esterase Negative (NEGATIVE) 10/26/18 09:45 UA reviewed. No signs of infection. *DC/Admit/Observation/Transfer Diagnosis at time of Disposition: Kidney stone on left side - Discharge Dispostion Condition at time of disposition: Stable Decision to Admit order: Yes - Referrals - Patient Instructions - Post Discharge Activity
[2018-10-26 08:43] LABS: BASO % 0.3 % (0-2.0); EOS % 0.4 % (0-4.5); HEMATOCRIT 46.4 % (35.4-49); LYMPH % 18.1 % (8-40); MCH 29.7 pg (25.7-33.7); MCHC 32.3 g/dl (32.0-35.9); MEAN CELL VOLUME 91.9 fl (80-96); MEAN PLT VOLUME 8.3 fl (7.5-11.1); MONO % 7.2 % (3.8-10.2); PLATELET COUNT 279 K/MM3 (134-434); RBC 5.05 M/mm3 (4.00-5.60); RDW 14.3 % (11.9-15.9)
[2018-10-26 08:59] LABS: ALBUMIN 4.7 g/dl (3.4-5.0); CALCIUM 9.4 mg/dl (8.5-10); CREATININE 1.6 mg/dl (0.55-1.3); POTASSIUM 4.3 mmol/L (3.5-5.1); TOT PROT 8.5 g/dl (6.4-8.2)
[2018-10-26] MEDS ORDERED: ACETAMINOPHEN 1000 MG/100 ML VIAL (NON FORMULARY) IVPB ONE (09:06)
[2018-10-26] MEDS ORDERED: ACETAMINOPHEN INJECTION 100 ML IVPB ONE (09:07)
[2018-10-26] MEDS ORDERED: morphine SULFATE 4 MG/ML VIAL ONE ×2 (09:07→09:41)
[2018-10-26] MEDS ORDERED: morphine CARPU-JECT 4 MG/1 ML DISP.SYRIN IVPUSH ONE ×2 (09:07→09:41)
[2018-10-26] MEDS ORDERED: morphine CARPU-JECT 4 MG/1 ML DISP.SYRIN IVPUSH PRN (10:28)
[2018-10-26] MEDS ORDERED: ACETAMINOPHEN 325 MG TABLET (FP) PO PRN (10:28)
[2018-10-26 10:29] LABS: URINE MUCUS 1+
--- NOTE | 2018-10-26 10:38 | HP ---
CHIEF COMPLAINT: Abdominal pain/ flank pain. PCP:None HISTORY OF PRESENT ILLNESS: This is a 28 year old male with a primary history significant for renal stones and obesity who presented to ER complaining of worsening abdominal pain with nausea and vomited x1 this AM. Pt reports of crampy/sharp abdominal pain (lower ) which started around 9AM yesterday,and also reports left flank pain. Pt denies cp, sob,cough, palpitations, fever, chills,dysuria or hematuria, testicular or genital pain.Reported feels exactly like his previous kidney stones, which was years ago. ER course was notable for: (1) CT abdomen/pelvis: 7mm distal renal stone in ureter with mild to moderate hydronephrosis, partially obstructive calculus. (2)wbc 12, afebrile, UA 2+ blood, no pyuria (3) Bun 12, cre 1.6 Recent Travel:No PAST MEDICAL HISTORY: Renal stones PAST SURGICAL HISTORY: GB sx > 10 yrs ago Social History: Smoking: Marijuana Alcohol:None Drugs: Marijuana Family History: Non- contributory Allergies No Known Allergies Allergy (Verified 10/26/18 07:55) HOME MEDICATIONS: Home Medications Medication Instructions Recorded NK [No Known Home Medication] 03/01/18 REVIEW OF SYSTEMS CONSTITUTIONAL: Absent: fever, chills, diaphoresis, generalized weakness, malaise, loss of appetite, weight change HEENT: Absent: rhinorrhea, nasal congestion, throat pain, throat swelling, difficulty swallowing, mouth swelling, ear pain, eye pain, visual changes CARDIOVASCULAR: Absent: chest pain, syncope, palpitations, irregular heart rate, lightheadedness , peripheral edema RESPIRATORY: Absent: cough, shortness of breath, dyspnea with exertion, orthopnea, wheezing, stridor, hemoptysis GASTROINTESTINAL: Absent: abdominal distension, nausea, vomiting, diarrhea, constipation, melena , hematochezia + Lower abdominal pain GENITOURINARY: Absent: dysuria, frequency, urgency, hesitancy, hematuria, flank pain, genital pain MUSCULOSKELETAL: Absent: myalgia, arthralgia, joint swelling, back pain, neck pain SKIN: Absent: rash, itching, pallor HEMATOLOGIC/IMMUNOLOGIC: Absent: easy bleeding, easy bruising, lymphadenopathy, frequent infections ENDOCRINE: Absent: unexplained weight gain, unexplained weight loss, heat intolerance, cold intolerance NEUROLOGIC: Absent: headache, focal weakness or paresthesias, dizziness, unsteady gait, seizure, mental status changes, bladder or bowel incontinence PSYCHIATRIC: Absent: anxiety, depression, suicidal or homicidal ideation, hallucinations. PHYSICAL EXAMINATION Vital Signs - 24 hr 10/26/18 10/26/18 07:55 10:31 Temperature 98.3 F 98.2 F Pulse Rate 63 Pulse Rate [ 71 Right] Respiratory 20 20 Rate Blood Pressure 191/110 H Blood Pressure 141/87 [Left Arm] O2 Sat by Pulse 99 99 Oximetry (%) GENERAL: Awake, alert, and fully oriented, in no acute distress. HEAD: Normal with no signs of trauma. EYES: Pupils equal, round and reactive to light, extraocular movements intact, sclera anicteric, conjunctiva clear. No lid lag. EARS, NOSE, THROAT: Ears normal, nares patent, oropharynx clear without exudates. Moist mucous membranes. NECK: Normal range of motion, supple without lymphadenopathy, JVD, or masses. LUNGS: Breath sounds equal, clear to auscultation bilaterally. No wheezes, and no crackles. No accessory muscle use. HEART: Regular rate and rhythm, normal S1 and S2 without murmur, rub or gallop. ABDOMEN: Soft, positive tenderness ( lower abdomen), not distended, normoactive bowel sounds, no guarding, no rebound, no masses. No hepatomegaly or splenomegaly. MUSCULOSKELETAL: Normal range of motion at all joints. No bony deformities or tenderness. positive left CVA tenderness. UPPER EXTREMITIES: 2+ pulses, warm, well-perfused. No cyanosis. No clubbing. No peripheral edema. LOWER EXTREMITIES: 2+ pulses, warm, well-perfused. No calf tenderness. No peripheral edema. NEUROLOGICAL: Cranial nerves II-XII intact. Normal speech. Normal gait. PSYCHIATRIC: Cooperative. Good eye contact. Appropriate mood and affect. SKIN: Warm, dry, normal turgor, no rashes or lesions noted, normal capillary refill. Laboratory Results - last 24 hr 10/26/18 10/26/18 10/26/18 08:15 08:15 09:45 WBC 12.0 H RBC 5.05 Hgb 15.0 Hct 46.4 MCV 91.9 MCH 29.7 MCHC 32.3 RDW 14.3 Plt Count 279 MPV 8.3 Absolute Neuts (auto) 8.9 Neutrophils % 74.0 D Lymphocytes % 18.1 D Monocytes % 7.2 Eosinophils % 0.4 Basophils % 0.3 Sodium 138 Potassium 4.3 Chloride 103 Carbon Dioxide 26 Anion Gap 9 BUN 12.0 Creatinine 1.6 H Est GFR (CKD-EPI)AfAm 66.02 Est GFR (CKD-EPI)NonAf 56.96 Random Glucose 118 H Calcium 9.4 Total Bilirubin 1.0 AST 59 H ALT 67 H Alkaline Phosphatase 45 Total Protein 8.5 H Albumin 4.7 Urine Color Yellow Urine Appearance Clear Urine pH 6.0 Urine Protein Trace Urine Glucose (UA) Negative Urine Ketones Trace Urine Blood 2+ H Urine Nitrite Negative Urine Bilirubin Negative Urine Urobilinogen 0.2 Ur Leukocyte Esterase Negative Urine RBC 10-20 Urine WBC 2-5 Urine Mucus 1+ ASSESSMENT/PLAN: This is a 28 year old male with a primary history significant for renal stones and obesity, admitted with obstructive calculus,hyronephrosis and MARILIN. *Abdominal pain, likely due to obstructive calculus -CT abdomen/pelvis: 7mm distal renal stone in ureter with mild to moderate hydronephrosis, partially obstructive calculus. -urology Dr. Garcia consulted from ER,rec to transfer pt to [facility] for stone removal and definitive management - pain control - IV hydration - UA with 2+ blood, no pyuria - afebrile with wbc 12 - will order Levaquin prophylactically as per urology *MARILIN - cre 1.6 on admission (cre 1.7 on 07/18/17, no reported hx of CKD) - IV hydration -will f/u on [employer] in am *Transaminase - poss due to fatty liver,chronically elevated LFT's) - asymptomatic - CT abdomen: No significant abnormalities of liver * F/E/N Regular diet, IVF, NPO after MN VTE: SCD's Visit type - Emergency Visit Emergency Visit: Yes Care time: The patient presented to the Emergency Department on the above date and was hospitalized for further evaluation of their emergent condition. - New Patient This patient is new to me today: Yes Date on this admission: 10/26/18 - Critical Care Critical Care patient: No
[2018-10-26] MEDS: SODIUM CHLORIDE 1,000 ML IV SCH (13:35)
[2018-10-26] MEDS: KETOROLAC TROMETHAMINE 30 MG/1 ML VIAL IVPUSH PRN ×2 (13:36→20:56)
[2018-10-26 14:45] VITALS: BMI 39.4
[2018-10-26] MEDS ORDERED: ONDANSETRON 4 MG/2 ML VIAL IVPB PRN (15:37)
[2018-10-26] MEDS ORDERED: MORPHINE SULFATE 2 MG/ML VIAL IVPUSH PRN (23:31)
[2018-10-27] MEDS ORDERED: IOHEXOL 300 MG/ML INFUS..BTL IV ONE ×2
[2018-10-27] MEDS: SODIUM CHLORIDE 1,000 ML IV SCH ×2 (02:57→16:00)
[2018-10-27 10:00] LABS: BASO % 0.5 % (0-2.0); EOS % 0.8 % (0-4.5); HEMOGLOBIN 14.6 GM/dL (11.7-16.9); LYMPH % 26.5 % (8-40); MCH 30.2 pg (25.7-33.7); MEAN CELL VOLUME 88.9 fl (80-96); MEAN PLT VOLUME 7.9 fl (7.5-11.1); MONO % 9.7 % (3.8-10.2); NEUT % 62.5 % (42.8-82.8); PLATELET COUNT 236 K/MM3 (134-434); RBC 4.84 M/mm3 (4.00-5.60); RDW 14.5 % (11.9-15.9); WHITE BLOOD COUNT 8.6 K/mm3 (4.0-10.0)
[2018-10-27] MEDS ORDERED: PROMETHAZINE HCL 25 MG/1 ML VIAL IVPUSH PRN (10:13)
[2018-10-27] MEDS ORDERED: ONDANSETRON 4 MG/2 ML VIAL IVPUSH PRN (10:13)
[2018-10-27] MEDS ORDERED: LACTATED RINGERS SOLUTION 1,000 ML IV SCH (10:15)
[2018-10-27 10:16] LABS: ALBUMIN 3.8 g/dl (3.4-5.0); BILIRUBIN,TOTAL 1.1 mg/dL (0.2-1); BLOOD UREA NITROGEN 12.6 mg/dL (7-18); CREATININE 1.9 mg/dL (0.55-1.3); TOT PROT 7.4 g/dl (6.4-8.2)
[2018-10-27 10:28] LABS: INR 1.11 (0.83-1.09); PROTHROMBIN TIME (PATIENT) 13.1 SEC (9.7-13.0)
--- NOTE | 2018-10-27 11:36 | PN ---
Progress Note, Physician Chief Complaint: left flank pain History of Present Illness: Patient is a 28 year old male with a primary history significant for renal stones and obesity, admitted with obstructive calculus, hyronephrosis and MARILIN. - Current Medication List Current Medications: Active Medications Acetaminophen (Tylenol -) 650 mg PO Q4HPO PRN PRN Reason: PAIN LEVEL 1-5 Fentanyl (Sublimaze Injection -) 50 mcg IVPUSH [id number] PRN PRN Reason: PAIN-PACU ORDER X 4 DOSES ONLY Levofloxacin (Levaquin 500 Mg Premixed Ivpb -) 500 mg in 100 mls @ 100 mls/hr IVPB DAILY CANDACE; Protocol Last Admin: 10/27/18 11:06 Dose: 100 mls/hr Sodium Chloride (Normal Saline -) 1,000 mls @ 75 mls/hr IV ASDIR CANDACE Last Admin: 10/27/18 02:57 Dose: 75 mls/hr Lactated Ringer's (Lactated Ringers Solution) 1,000 mls @ 125 mls/hr IV ASDIR CANDACE Ketorolac Tromethamine (Toradol Injection -) 30 mg IVPUSH Q6H PRN PRN Reason: PAIN LEVEL 4 - 6 Stop: 10/31/18 10:26 Last Admin: 10/26/18 20:56 Dose: 30 mg Morphine Sulfate (Morphine Sulfate) 2 mg IVPUSH Q4H PRN PRN Reason: PAIN LEVEL 7 - 10 Last Admin: 10/26/18 23:35 Dose: 2 mg Ondansetron HCl (Zofran Injection) 4 mg IVPB Q6H PRN PRN Reason: NAUSEA Last Admin: 10/26/18 15:54 Dose: 4 mg Ondansetron HCl (Zofran Injection) 4 mg IVPUSH Q6H PRN PRN Reason: NAUSEA AND/OR VOMITING Promethazine HCl (Phenergan Injection -) 12.5 mg IVPUSH Q6H PRN PRN Reason: NAUSEA-FOR RESCUE AFTER 15 MIN - Objective Vital Signs: Vital Signs Temperature 98.2 F 10/27/18 09:41 Pulse Rate 71 10/27/18 09:41 Respiratory Rate 20 10/27/18 09:41 Blood Pressure 143/84 10/27/18 09:41 O2 Sat by Pulse Oximetry (%) 99 10/26/18 21:00 Constitutional: Yes: Well Nourished, No Distress, Calm Eyes: Yes: WNL HENT: Yes: WNL, Atraumatic Neck: Yes: WNL, Supple Cardiovascular: Yes: Regular Rate and Rhythm Respiratory: Yes: Regular, CTA Bilaterally Gastrointestinal: Yes: Normal Bowel Sounds ...Rectal Exam: Yes: Deferred Genitourinary: Yes: WNL Musculoskeletal: Yes: WNL Extremities: Yes: WNL Edema: No Integumentary: Yes: Tattoos (multiple) Neurological: Yes: WNL, Alert, Oriented ...Motor Strength: WNL Psychiatric: Yes: WNL, Alert, Oriented Labs: CBC, BMP 10/27/18 09:02 10/27/18 09:02 INR, PTT INR 1.11 (0.83-1.09) H 10/27/18 09:02 - ....Imaging Cat Scan: Report Reviewed Problem List - Problems (1) Kidney stone on left side Assessment/Plan: abdominal pain likely secondary to obstructive calculus. CT abd/pelvis shows 7mm distal renal stone in ureter with mild to moderate hydronephrosis, partially obstructive calculus. Patient for cystoscopy with stone removal today with Dr. Irineo Cook Continue IV hydration, pain management and close monitoring of renal function. On Levaquin prophylactically as per urology Code(s): N20.0 - CALCULUS OF KIDNEY (2) MARILIN (acute kidney injury) Assessment/Plan: creatinine 1.6 on admission, creatinine of 1.7 on 2018 labs, but normal creatinine of previous years labs. No hydronephrosis seen on ct imaging. continue IV hydration, monitor daily. Code(s): N17.9 - ACUTE KIDNEY FAILURE, UNSPECIFIED (3) Elevated liver enzymes Assessment/Plan: Transaminase, poss due to fatty liver, chronically elevated LFT's. patient is asymptomatic. No abnormalities on CT imaging of the liver. Code(s): R74.8 - ABNORMAL LEVELS OF OTHER SERUM ENZYMES (4) Prophylactic measure Assessment/Plan: fen LR @ 125/cc/hr monitor electrolytes low salt diet full code Code(s): Z29.9 - ENCOUNTER FOR PROPHYLACTIC MEASURES, UNSPECIFIED Visit type - Emergency Visit Emergency Visit: Yes ED Registration Date: 10/26/18 Care time: The patient presented to the Emergency Department on the above date and was hospitalized for further evaluation of their emergent condition. - New Patient This patient is new to me today: Yes Date on this admission: 10/27/18 - Critical Care Critical Care patient: No - Discharge Referral Referred to [facility] Med P.C[facility] No
[2018-10-27] MEDS ORDERED: PROPOFOL 20 ML ONE ×4 (11:56→13:17)
[2018-10-27] MEDS ORDERED: MIDAZOLAM HCL 2 MG/2 ML SINGLE DOSE VIAL ONE (11:56)
[2018-10-27] MEDS ORDERED: LIDOCAINE HCL/PF 2% SDV 5ML VIAL ONE (11:57)
[2018-10-27] MEDS ORDERED: DEXAMETHASONE SOD PHOSPHATE 4 MG/1 ML VIAL ONE (12:13)
[2018-10-27] MEDS ORDERED: KETOROLAC TROMETHAMINE 30 MG/1 ML VIAL ONE (12:43)
--- NOTE | 2018-10-27 14:24 | OP ---
Operative Note - Note: Operative Date: 10/27/18 Pre-Operative Diagnosis: left ureteral stone Operation: cystoscopy/left retrograde pyelogram/left ureteroscopic laser lithotripsy and stone basketing/placement of left ureteral stent x2 Findings: 8 mm left ureteral stone Post-Operative Diagnosis: Same as Pre-op Surgeon: Ean Garcia (\) Anesthesia: General Drains & Tubes with Location: 10/04 stent in lower moiety and 10/06 in upper moiety
[2018-10-27] MEDS ORDERED: ACETAMINOPHEN 325 MG TABLET (FP) PO PRN (17:18)
[2018-10-28] MEDS: SODIUM CHLORIDE 1,000 ML IV SCH (02:46)
[2018-10-28 07:41] VITALS: BP 142/79; PULSE 60; TEMP 97.6
--- NOTE | 2018-10-28 10:49 | DS ---
Physical Examination Vital Signs: Vital Signs Temperature 97.6 F 10/28/18 07:40 Pulse Rate 60 10/28/18 07:40 Respiratory Rate 20 10/28/18 07:40 Blood Pressure 142/79 10/28/18 07:40 O2 Sat by Pulse Oximetry (%) 100 10/27/18 21:00 Findings/Remarks: Feeling well, no complaints, hematuria improved, slight cramping but overall feeling well Constitutional: Yes: Well Nourished, No Distress, Calm Cardiovascular: Yes: WNL, Regular Rate and Rhythm Respiratory: Yes: WNL, Regular, CTA Bilaterally Gastrointestinal: Yes: WNL, Normal Bowel Sounds, Soft, Abdomen, Obese Renal/: Yes: Hematuria. No: CVA Tenderness - Left, CVA Tenderness - Right Musculoskeletal: Yes: WNL Extremities: Yes: WNL Edema: No ...Motor Strength: WNL Labs: CBC, BMP 10/27/18 09:02 10/27/18 09:02 Discharge Summary Reason For Visit: CALCULUS OF LEFT KIDNEY Current Active Problems MARILIN (acute kidney injury) (Acute) Elevated liver enzymes (Acute) Kidney stone on left side (Acute) Kidney stones (Acute) Prophylactic measure (Acute) Hospital Course: 28 year old male with a history significant for renal stones and obesity presented to ER complaining of worsening abdominal pain with nausea and vomiting. Pt complained of crampy/sharp abdominal pain and left flank pain. ER course was notable for: (1) CT abdomen/pelvis: 7mm distal renal stone in ureter with mild to moderate hydronephrosis, partially obstructive calculus. (2) wbc 12, afebrile, UA 2+ blood, no pyuria (3) Bun 12, cre 1.6 Hospital Course: (1) Kidney stone on left side s/p cystoscopy/left retrograde pyelogram/left ureteroscopic laser lithotripsy and stone basketing/placement of left ureteral stent x2 Dr. Irineo Cook was hydrated, given antibiotics and pain management history of ckd, now with marilin, renal function improved, needs to followup outpatient (2) MARILIN (acute kidney injury) creatinine 1.6 on admission, creatinine of 1.7 on 2018 labs, but normal creatinine of previous years labs. No hydronephrosis seen on ct imaging. Needs to follow-up outpatient for workup (3) Elevated liver enzymes chronically elevated LFTs, follow up outpatient No abnormalities on CT imaging of the liver Monitor outpatient Condition: Stable - Instructions Diet, Activity, Other Instructions: Please follow up with Dr Irineo Cook in 1 week Also please follow up at the health clinic to establish care, call [phone] Referrals: Ean Garcia MD [Staff Physician] - Paul Bolivar RES [Resident] - Disposition: HOME - Home Medications Comprehensive Discharge Medication List: Ambulatory Orders NK [No Known Home Medication] 03/01/18
[2018-10-28 11:28] LABS: BASO % 0.5 % (0-2.0); EOS % 0.2 % (0-4.5); HEMATOCRIT 42.2 % (35.4-49); LYMPH % 27.2 % (8-40); MCH 29.7 pg (25.7-33.7); MCHC 33.3 g/dl (32.0-35.9); MEAN CELL VOLUME 89.3 fl (80-96); MEAN PLT VOLUME 7.8 fl (7.5-11.1); MONO % 6.5 % (3.8-10.2); NEUT % 65.6 % (42.8-82.8); RBC 4.72 M/mm3 (4.00-5.60); RDW 14.6 % (11.9-15.9); WHITE BLOOD COUNT 12.2 K/mm3 (4.0-10.0)
[2018-10-28 11:41] LABS: PLATELET COUNT 263 K/MM3 (134-434)
[2018-10-28 12:04] LABS: ALBUMIN 3.8 g/dl (3.4-5.0); BILIRUBIN,TOTAL 0.5 mg/dL (0.2-1); BLOOD UREA NITROGEN 18.4 mg/dL (7-18); CALCIUM 9.1 mg/dL (8.5-10.1); CREATININE 1.4 mg/dL (0.55-1.3); POTASSIUM 3.8 mmol/L (3.5-5.1); TOT PROT 7.4 g/dl (6.4-8.2)
--- NOTE | 2018-10-28 12:05 | PATH ---
Surgical Pathology Report Patient Name: JOSHUA OSPINA Med. Rec. #: [id number] /Age/Gender: 1990 (Age: 28) / M Account: [id number] Location: [address] [place] [address]/[facility] Taken: 10/27/2018 Received: 10/27/2018 Reported: 10/28/2018 Physicians: Ean Garcia Specimen(s) Received LEFT URETERAL STONE Clinical History Left ureteral stone x2 Final Diagnosis URETERAL STONE, LEFT, LASER LITHOTRIPSY: URETEROLITHIASIS. MACROSCOPIC DIAGNOSIS. Electronically Signed Ilda Valencia M.D. Gross Description Received fresh labeled "left ureteral stone," are 5 casey-yellow, irregular calculi ranging from 0.2-0.4 cm in greatest dimension. The specimen is sent for chemical analysis. /10/27/2018 saudi/10/27/2018
== END 2018-10-28 13:36 | disposition home or self-care (01) | DRG 443 ==
LOC: FER 07:54 → J5S 13:00
PROVIDERS: ADMIT Internal Medicine; ATTEND Internal Medicine
PROC: 0T778ZZ Dilation of Left Ureter, Via Natural or Artificial Opening Endoscopic (ICD-10-PCS; principal; 2018-10-27 10:00)
PROC: 0TC78ZZ Extirpation of Matter from Left Ureter, Via Natural or Artificial Opening Endoscopic (ICD-10-PCS; 2018-10-27 10:00)
PROC: BT1FZZZ Fluoroscopy of Left Kidney, Ureter and Bladder (ICD-10-PCS; 2018-10-27 10:00)
DX: N13.2 Hydronephrosis with renal and ureteral calculous obstruction (principal); N17.9 Acute kidney failure, unspecified; R74.0 Nonspecific elevation of levels of transaminase and lactic acid dehydrogenase [LDH]; K76.0 Fatty (change of) liver, not elsewhere classified; E66.9 Obesity, unspecified; Z68.39 Body mass index [BMI] 39.0-39.9, adult
CPT/HCPCS: 36415; 71046-TC-FY; 74176-TC; 76000-TC-FY; 80053; 81003; 81015; 82360; 82962; 85025; 85610; 86850; 86900; 86901; 87086; 88300-TC; 94760; 99283-25; J0131; J7030

== ENCOUNTER 2018-12-02 11:22 | Inpatient (IN) | payer SELFPAY ==
[2018-12-02] MEDS ORDERED: ACETAMINOPHEN 1000 MG/100 ML VIAL (NON FORMULARY) IVPB ONE (11:33)
[2018-12-02] MEDS ORDERED: SODIUM CHLORIDE 1,000 ML IV STA ×3 (11:33→15:30)
[2018-12-02] MEDS ORDERED: ONDANSETRON 4 MG/2 ML VIAL IVPUSH ONE (11:33)
[2018-12-02 11:37] VITALS: BMI 36.9
--- NOTE | 2018-12-02 11:37 | PDOC ---
History of Present Illness - General Chief Complaint: Pain Stated Complaint: FEVER Time Seen by Provider: 12/02/18 11:25 History Source: Patient Exam Limitations: No Limitations - History of Present Illness Travel History: No Initial Comments: 12/02/18 11:35 28 year old male with hx of kidney stones presents to ER with fever, diarrhea and nausea . Mild back pain and headache as well. No traveling or sick contacts. Took Tylenol last night. No fall or trauma. No vomiting. Denies chest pain or SOB. No dysuria, or hematuria. Stent placed last visit. 12/02/18 15:32 Pain Radiation: reports: no radiation Past History - Past Medical History Allergies/Adverse Reactions: Allergies Allergy/AdvReac Type Severity Reaction Status Date / Time No Known Allergies Allergy Verified 10/26/18 07:55 Home Medications: Ambulatory Orders NK [No Known Home Medication] 03/01/18 Anemia: No Asthma: No Cancer: No Cardiac Disorders: No CVA: No COPD: No CHF: No Dementia: No Diabetes: No GI Disorders: No Disorders: No HTN: No Hypercholesterolemia: No Kidney Stones: Yes Liver Disease: No Seizures: No Thyroid Disease: No - Surgical History Cholecystectomy: Yes Neurologic Surgery: No - Suicide/Smoking/Psychosocial Hx Smoking Status: Yes Smoking History: Former smoker Have you smoked in the past 12 months: No Number of Cigarettes Smoked Daily: 0 If you are a former smoker, when did you quit?: 2015 'Breaking Loose' booklet given: 11/07/13 Hx Alcohol Use: No Drug/Substance Use Hx: No Substance Use Type: Alcohol, Marijuana Review of Systems - Review of Systems Able to Perform ROS?: Yes Is the patient limited Spanish proficient: No Constitutional: Yes: Fever. No: Chills Respiratory: No: Shortness of Breath Cardiac (ROS): No: Chest Pain ABD/GI: Yes: Diarrhea, Nausea. No: Vomiting : No: Dysuria, Hematuria Musculoskeletal: Yes: Back Pain Integumentary: No: Erythema Neurological: Yes: Headache All Other Systems: Reviewed and Negative *Physical Exam - Physical Exam General Appearance: Yes: Nourished, Appropriately Dressed. No: Apparent Distress HEENT: positive: EOMI, ALVARO, Normal ENT Inspection, Normal Voice, Symmetrical, Pharynx Normal Neck: positive: Trachea midline, Normal Thyroid, Supple. negative: Tender, Rigid Respiratory/Chest: positive: Lungs Clear, Normal Breath Sounds. negative: Chest Tender, Respiratory Distress Cardiovascular: positive: Regular Rhythm, Regular Rate, S1, S2. negative: Edema , JVD, Murmur Vascular Pulses: Femoral (R): 4+, Femoral (L): 4+, Carotid (R): 4+, Carotid (L) : 4+, Dorsalis-Pedis (R): 4+, Doralis-Pedis (L): 4+ Gastrointestinal/Abdominal: positive: Normal Bowel Sounds, Flat, Soft. negative : Tender (No RUQ or LUQ tenderness, no RLQ or LLQ tenderness +BS, soft), Organomegaly, Pulsatile Mass Lymphatic: negative: Adenopathy, Tenderness, Other Musculoskeletal: positive: Normal Inspection. negative: CVA Tenderness Extremity: positive: Normal Capillary Refill, Normal Inspection, Normal Range of Motion. negative: Tender Integumentary: positive: Normal Color, Dry, Warm Neurologic: positive: shift mgr II-XII NML intact, Fully Oriented, Alert, Normal Mood/ Affect, Normal Response, Motor Strength 08/17 ED Treatment Course - LABORATORY CBC & Chemistry Diagram: 12/02/18 11:57 12/02/18 11:57 Progress Note - Progress Note Progress Note: Patient with N/diarrhea and fever. Will obtain labs, IVF and watch Patient is in agreement with plan. Patient is feeling better, temp 99.6 CT abd/pelvis with IV: pyelonephritis seen Spoke with Becky MANAGER RESEARCH, will admit patient to Dr. Cole's service Becky will consult Urology to make sure stent not infected Patient is in agreement with plan *DC/Admit/Observation/Transfer Diagnosis at time of Disposition: Pyelonephritis - Discharge Dispostion Condition at time of disposition: Stable Decision to Admit order: Yes - Referrals - Patient Instructions - Post Discharge Activity
[2018-12-02] MEDS ORDERED: ONDANSETRON 4 MG/2 ML VIAL ONE ×2 (12:01→18:12)
[2018-12-02] MEDS ORDERED: ACETAMINOPHEN INJECTION 100 ML IVPB ONE (12:01)
[2018-12-02 12:19] LABS: MCH 29.7 pg (25.7-33.7); RDW 13.2 % (11.9-15.9)
[2018-12-02 12:23] LABS: HEMATOCRIT 42.5 % (35.4-49); HEMOGLOBIN 14.3 GM/dl (11.7-16.9); MCHC 33.6 g/dl (32.0-35.9); MEAN CELL VOLUME 88.3 fl (80-96); MEAN PLT VOLUME 7.9 fl (7.5-11.1); PLATELET COUNT 275 K/MM3 (134-434); RBC 4.81 M/mm3 (4.00-5.60); WHITE BLOOD COUNT 17.4 K/mm3 (4.0-10.8)
[2018-12-02 12:27] LABS: BILIRUBIN,TOTAL 1.1 mg/dl (0.2-1); CREATININE 1.3 mg/dl (0.55-1.3); POTASSIUM 3.4 mmol/L (3.5-5.1); TOT PROT 8.7 g/dl (6.4-8.2)
[2018-12-02 13:30] LABS: PLATELET ESTIMATE ADEQUATE
--- NOTE | 2018-12-02 15:43 | HP ---
CHIEF COMPLAINT: Fever, nausea, diarrhea PCP: None HISTORY OF PRESENT ILLNESS: 28 year-old male with a PMH significant for kidney stones s/p lithotripsy and ureteral stents x 2 (October 2018). Patient had "a stent removed" on 11/17/[address] Guzmán. Was prescribed 5 days of an antibiotic (cannot recall name) but only took 3 days. Presented to the ED today for evaluation of fever, diarrhea, and nausea that began 24 hours ago. Patient came home from work yesterday with a headache, nausea, bodyaches, profound fatigue, and dysuria. His temp was 103. He had two episodes of diarrhea, took Tylenol. [place] worse overnight and came to the ED today. 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 Smoking: never Alcohol: no Drugs: no Family History: mother 50 a&w; father 55 a&w; 1 brother with h/o kidney stones; 1 sister and 3 more brothers a&w; one son a&w Allergies No Known Allergies Allergy (Verified 10/26/18 07:55) HOME MEDICATIONS: Home Medications Medication Instructions Recorded NK [No Known Home Medication] 03/01/18 REVIEW OF SYSTEMS CONSTITUTIONAL: +fever, chills, generalized weakness, bodyaches Absent: diaphoresis, loss of appetite, weight change HEENT: Absent: rhinorrhea, nasal congestion, throat pain, throat swelling, difficulty swallowing, mouth swelling, ear pain, eye pain, visual changes CARDIOVASCULAR: Absent: chest pain, syncope, palpitations, irregular heart rate, lightheadedness , peripheral edema RESPIRATORY: Absent: cough, shortness of breath, dyspnea with exertion, orthopnea, wheezing, stridor, hemoptysis GASTROINTESTINAL: Absent: abdominal pain, abdominal distension, nausea, vomiting, diarrhea, constipation, melena, hematochezia GENITOURINARY: +dysuria Absent: frequency, urgency, hesitancy, hematuria, flank pain, genital pain MUSCULOSKELETAL: Absent: myalgia, arthralgia, joint swelling, back pain, neck pain SKIN: Absent: rash, itching, pallor HEMATOLOGIC/IMMUNOLOGIC: Absent: easy bleeding, easy bruising, lymphadenopathy, frequent infections ENDOCRINE: Absent: unexplained weight gain, unexplained weight loss, heat intolerance, cold intolerance NEUROLOGIC: Absent: headache, focal weakness or paresthesias, dizziness, unsteady gait, seizure, mental status changes, bladder or bowel incontinence PSYCHIATRIC: Absent: anxiety, depression, suicidal or homicidal ideation, hallucinations. PHYSICAL EXAMINATION Vital Signs - 24 hr 12/02/18 12/02/18 11:23 14:00 Temperature 101.5 F H 99.6 F Pulse Rate 130 H Pulse Rate [ 95 H Right] Respiratory 20 20 Rate Blood Pressure 130/85 Blood Pressure 101/56 L [Left Arm] O2 Sat by Pulse 97 95 Oximetry (%) GENERAL: Awake, alert, and fully oriented, in no acute distress. HEAD: Normal with no signs of trauma. EYES: Pupils equal, round and reactive to light, extraocular movements intact, sclera anicteric, conjunctiva clear. No lid lag. EARS, NOSE, THROAT: Ears normal, nares patent, oropharynx clear without exudates. Moist mucous membranes. NECK: Normal range of motion, supple without lymphadenopathy, JVD, or masses. LUNGS: Breath sounds equal, clear to auscultation bilaterally. No wheezes, and no crackles. No accessory muscle use. HEART: Regular rate and rhythm, normal S1 and S2 without murmur, rub or gallop. ABDOMEN: Soft, nontender, not distended, normoactive bowel sounds, no guarding, no rebound tenderness MUSCULOSKELETAL: Normal range of motion at all joints. No bony deformities or tenderness. No CVA tenderness. UPPER EXTREMITIES: 2+ pulses, warm, well-perfused. No cyanosis. No clubbing. No peripheral edema. LOWER EXTREMITIES: 2+ pulses, warm, well-perfused. No calf tenderness. No peripheral edema. NEUROLOGICAL: Cranial nerves II-XII intact. Normal speech. Laboratory Results - last 24 hr 12/02/18 12/02/18 12/02/18 11:57 11:57 14:43 WBC 17.4 H RBC 4.81 Hgb 14.3 Hct 42.5 MCV 88.3 MCH 29.7 MCHC 33.6 RDW 13.2 Plt Count 275 MPV 7.9 Absolute Neuts (auto) 14.2 Neutrophils % No Result Required. Neutrophils % (Manual) 76.0 Band Neutrophils % 3.0 Lymphocytes % No Result Required. Lymphocytes % (Manual) 15.0 Monocytes % (Manual) 5 Metamyelocytes 1 Platelet Estimate Adequate Sodium 134 L Potassium 3.4 L Chloride 99 Carbon Dioxide 25 Anion Gap 10 BUN 10.0 Creatinine 1.3 Est GFR (CKD-EPI)AfAm 84.86 Est GFR (CKD-EPI)NonAf 73.22 Random Glucose 131 H Calcium 9.0 Total Bilirubin 1.1 H AST 29 ALT 35 Alkaline Phosphatase 46 Total Protein 8.7 H Albumin 4.0 Urine Color Yellow Urine Appearance Clear Urine pH 6.0 Urine Protein 2+ H Urine Glucose (UA) Negative Urine Ketones Negative Urine Blood 2+ H Urine Nitrite Negative Urine Bilirubin Negative Urine Urobilinogen 0.2 Ur Leukocyte Esterase Trace H ASSESSMENT/PLAN 28 year-old male with a PMH significant for kidney stones s/p lithotripsy and ureteral stents x 2 (October 2018). Presented to the ED for evaluation of fever, diarrhea, and nausea. Sepsis secondary to left kidney pyelonephritis Ureteritis s/p ureteral stents x 2 --T 101.5, WBC 17.4k, p130 --CTAP: (1) left kidney pyelo; (2) ureteritis; (3) left double-J ureteral stent --NS x 3L given in ED --levofloxacin given in ED --consider stent as possible source, urology consult for Dr. Guzmán --lactic acid pending --cultures Gout --stable Hypokalemia --replete FEN Fluids: NS @100mL/hr Electrolytes: replete as indicated Nutrition: regular diet DVT prophylaxis: SCDs, oob, ambulation; avoid chemical prophylaxis due to possible intervention to remove stent Dispo: continues to require inpatient care. Full code. Visit type - Emergency Visit Emergency Visit: Yes ED Registration Date: 12/02/18 Care time: The patient presented to the Emergency Department on the above date and was hospitalized for further evaluation of their emergent condition. - New Patient This patient is new to me today: Yes Date on this admission: 12/03/18 - Critical Care Critical Care patient: No
[2018-12-02] MEDS: SODIUM CHLORIDE 1,000 ML IV SCH (17:33)
[2018-12-02] MEDS ORDERED: POTASSIUM CHLORIDE TABS 20 MEQ TABLET.ER (FP) PO ONE (17:50)
[2018-12-02] MEDS: POTASSIUM CHLORIDE TABS 20 MEQ TABLET.ER (FP) PO SCH ×2 (17:53→22:26)
[2018-12-02] MEDS ORDERED: KETOROLAC TROMETHAMINE 30 MG/1 ML VIAL IVPUSH ONE (18:11)
[2018-12-02] MEDS ORDERED: ONDANSETRON 4 MG/2 ML VIAL IVPB ONE (18:12)
[2018-12-02] MEDS ORDERED: KETOROLAC TROMETHAMINE 30 MG/1 ML VIAL ONE (18:12)
[2018-12-03] MEDS: ACETAMINOPHEN 325 MG TABLET (FP) PO PRN ×2 (06:12→21:26)
[2018-12-03 07:11] LABS: BASO % 0.4 % (0-2.0); HEMATOCRIT 36.5 % (35.4-49); HEMOGLOBIN 12.2 GM/dl (11.7-16.9); LYMPH % 10.5 % (8-40); MCH 29.4 pg (25.7-33.7); MCHC 33.5 g/dl (32.0-35.9); MEAN CELL VOLUME 87.8 fl (80-96); MONO % 9.4 % (3.8-10.2); NEUT % 79.7 % (42.8-82.8); PLATELET COUNT 211 K/MM3 (134-434); RBC 4.15 M/mm3 (4.00-5.60); RDW 12.9 % (11.9-15.9); WHITE BLOOD COUNT 13.3 K/mm3 (4.0-10.8)
[2018-12-03 07:19] LABS: ALBUMIN 3.2 g/dl (3.4-5.0); BILIRUBIN,TOTAL 0.9 mg/dl (0.2-1); CALCIUM 8.2 mg/dl (8.5-10); CREATININE 1.2 mg/dl (0.55-1.3); MAGNESIUM 1.5 mg/dL (1.8-2.4); PHOSPHOROUS 2.2 mg/dl (2.5-4.9); POTASSIUM 3.5 mmol/L (3.5-5.1); TOT PROT 7.1 g/dl (6.4-8.2)
[2018-12-03 07:28] LABS: ACTIVATED PTT 33.8 SECONDS (25.2-36.5)
[2018-12-03 07:32] LABS: PROTHROMBIN TIME (PATIENT) 20.8 SEC (10.2-13.0)
[2018-12-03 07:57] LABS: INR 1.88 (0.82-1.09)
[2018-12-03] MEDS ORDERED: MEROPENEM 1 GM in DEXTROSE 5%-WATER 100 ML IVPB SCH ×2 (08:29→08:45)
[2018-12-03] MEDS ORDERED: VANCOMYCIN HCL 1,500 MG in DEXTROSE 5%-WATER - 500 ML IVPB SCH (08:45)
[2018-12-03] MEDS ORDERED: VANCOMYCIN HCL 1,500 MG in DEXTROSE 5%-WATER - 250 ML IVPB SCH (08:45)
[2018-12-03] MEDS ORDERED: MEROPENEM 1 GM VIAL (RESTRICTED TO ID) IVPB ONE ×2 (08:54→18:04)
[2018-12-03] MEDS ORDERED: DEXTROSE 5%-WATER 100 ML IVPB ONE ×2 (08:54→18:04)
--- NOTE | 2018-12-03 11:39 | CON.GU ---
Consult Consult Specialty:: Referred by:: Sher Reason for Consultation:: pyelonephritis - History of Present Illness Chief Complaint: fever, N, V History of Present Illness: 28 year-old male with a PMH significant for kidney stones s/p lithotripsy and ureteral stents x 2 (October 2018). Presented to the ED for evaluation of fever, diarrhea, and nausea. ER course was notable for: (1) T 101.5, WBC 17.4k, p130 (2) K 3.4 (3) CTAP: (1) left kidney pyelo; (2) ureteritis; (3) left double-J ureteral stent, (4) L renal calculus - History Source History Provided By: Patient, Medical Record Limitations to Obtaining History: No Limitations - Past Medical History Renal/: Yes: Renal Calculi - Alcohol/Substance Use Hx Alcohol Use: No - Smoking History Smoking history: Former smoker Have you smoked in the past 12 months: No Aproximately how many cigarettes per day: 0 If you are a former smoker, when did you quit?: 2016 Home Medications - Allergies Allergies/Adverse Reactions: Allergies Allergy/AdvReac Type Severity Reaction Status Date / Time No Known Allergies Allergy Verified 10/26/18 07:55 - Home Medications Home Medications: Ambulatory Orders NK [No Known Home Medication] 03/01/18 Physical Exam- Vital Signs: Vital Signs Temperature 98.3 F 12/03/18 09:00 Pulse Rate 82 12/03/18 09:00 Respiratory Rate 18 12/03/18 09:00 Blood Pressure 126/80 12/03/18 09:00 O2 Sat by Pulse Oximetry (%) 95 12/03/18 08:44 Labs: CBC, BMP 12/03/18 06:54 12/03/18 06:54 Imaging - Results Cat Scan: Report Reviewed Problem List - Problems (1) Pyelonephritis Assessment/Plan: ur cx, iv abxs, cont L JJ stent Code(s): N12 - TUBULO-INTERSTITIAL NEPHRITIS, NOT SPCF ACUTE OR CHRONIC (2) Hydronephrosis concurrent with and due to calculi of kidney and ureter Code(s): N13.2 - HYDRONEPHROSIS WITH RENAL AND URETERAL CALCULOUS OBSTRUCTION (3) Ureteritis Code(s): N28.89 - OTHER SPECIFIED DISORDERS OF KIDNEY AND URETER (4) Kidney stone on left side Assessment/Plan: f/u for ESWL L after UTI/ pyelonephritis resolved Code(s): N20.0 - CALCULUS OF KIDNEY (5) Duplicated left renal collecting system Code(s): Q62.5 - DUPLICATION OF URETER (6) Leukocytosis Code(s): D72.829 - ELEVATED WHITE BLOOD CELL COUNT, UNSPECIFIED
--- NOTE | 2018-12-03 12:21 | CON.ID ---
Consult Consult Specialty:: infectious diseases - Past Medical History Renal/: Yes: Renal Calculi - Alcohol/Substance Use Hx Alcohol Use: No - Smoking History Smoking history: Former smoker Have you smoked in the past 12 months: No Aproximately how many cigarettes per day: 0 If you are a former smoker, when did you quit?: 2016 Home Medications - Allergies Allergies/Adverse Reactions: Allergies Allergy/AdvReac Type Severity Reaction Status Date / Time No Known Allergies Allergy Verified 10/26/18 07:55 - Home Medications Home Medications: Ambulatory Orders NK [No Known Home Medication] 03/01/18 Physical Exam Vital Signs: Vital Signs Temperature 98.3 F 12/03/18 09:00 Pulse Rate 82 12/03/18 09:00 Respiratory Rate 18 12/03/18 09:00 Blood Pressure 126/80 12/03/18 09:00 O2 Sat by Pulse Oximetry (%) 95 12/03/18 08:44 Labs: CBC, BMP 12/03/18 06:54 12/03/18 06:54
--- NOTE | 2018-12-03 12:48 | PN ---
Physical Exam: SUBJECTIVE: Patient seen and examined oob to chair. Still with headache, fatigue , bodyaches and episodes of chills. OBJECTIVE: Vital Signs Period Temp Pulse Resp BP Sys/French Pulse Ox Last 24 Hr 98.3 F-102.8 F 82-125 18-22 101-147/56-91 95-100 GENERAL: The patient is awake, alert, and fully oriented, in no acute distress. LUNGS: Breath sounds equal, clear to auscultation bilaterally, no wheezes, no crackles, no accessory muscle use. HEART: Regular rate and rhythm, S1, S2 without murmur, rub or gallop. ABDOMEN: Soft, nontender, nondistended EXTREMITIES: 2+ pulses, warm, well-perfused, no edema. NEUROLOGICAL: Cranial nerves II through XII grossly intact. Normal speech Laboratory Results - last 24 hr 12/02/18 12/02/18 12/02/18 11:57 14:43 16:55 WBC RBC Hgb Hct MCV MCH MCHC RDW Plt Count MPV Absolute Neuts (auto) Neutrophils % Neutrophils % (Manual) 76.0 Band Neutrophils % 3.0 Lymphocytes % Lymphocytes % (Manual) 15.0 Monocytes % Monocytes % (Manual) 5 Eosinophils % Basophils % Metamyelocytes 1 Platelet Estimate Adequate PT with INR INR PTT (Actin FS) Sodium Potassium Chloride Carbon Dioxide Anion Gap BUN Creatinine Est GFR (CKD-EPI)AfAm Est GFR (CKD-EPI)NonAf Random Glucose Lactic Acid 1.6 Calcium Phosphorus Magnesium Total Bilirubin AST ALT Alkaline Phosphatase Total Protein Albumin Urine Color Yellow Urine Appearance Clear Urine pH 6.0 Urine Protein 2+ H Urine Glucose (UA) Negative Urine Ketones Negative Urine Blood 2+ H Urine Nitrite Negative Urine Bilirubin Negative Urine Urobilinogen 0.2 Ur Leukocyte Esterase Trace H Urine RBC 40-60 Urine WBC 20-40 Urine Bacteria Many 12/03/18 12/03/18 12/03/18 06:54 06:54 06:54 WBC 13.3 H RBC 4.15 Hgb 12.2 Hct 36.5 MCV 87.8 MCH 29.4 MCHC 33.5 RDW 12.9 Plt Count 211 D MPV 8.0 Absolute Neuts (auto) 10.5 Neutrophils % 79.7 Neutrophils % (Manual) Band Neutrophils % Lymphocytes % 10.5 D Lymphocytes % (Manual) Monocytes % 9.4 Monocytes % (Manual) Eosinophils % 0.0 D Basophils % 0.4 Metamyelocytes Platelet Estimate PT with INR 20.8 H INR 1.88 H* PTT (Actin FS) 33.8 Sodium 135 L Potassium 3.5 Chloride 102 Carbon Dioxide 23 Anion Gap 10 BUN 11.0 Creatinine 1.2 Est GFR (CKD-EPI)AfAm 93.48 Est GFR (CKD-EPI)NonAf 80.66 Random Glucose 118 H Lactic Acid Calcium 8.2 L Phosphorus 2.2 L Magnesium 1.5 L Total Bilirubin 0.9 AST 25 ALT 29 Alkaline Phosphatase 36 L D Total Protein 7.1 Albumin 3.2 L Urine Color Urine Appearance Urine pH Urine Protein Urine Glucose (UA) Urine Ketones Urine Blood Urine Nitrite Urine Bilirubin Urine Urobilinogen Ur Leukocyte Esterase Urine RBC Urine WBC Urine Bacteria 12/03/18 09:08 WBC RBC Hgb Hct MCV MCH MCHC RDW Plt Count MPV Absolute Neuts (auto) Neutrophils % Neutrophils % (Manual) Band Neutrophils % Lymphocytes % Lymphocytes % (Manual) Monocytes % Monocytes % (Manual) Eosinophils % Basophils % Metamyelocytes Platelet Estimate PT with INR INR PTT (Actin FS) Sodium Potassium Chloride Carbon Dioxide Anion Gap BUN Creatinine Est GFR (CKD-EPI)AfAm Est GFR (CKD-EPI)NonAf Random Glucose Lactic Acid Calcium Phosphorus Magnesium Total Bilirubin AST ALT Alkaline Phosphatase Total Protein Albumin Urine Color Yellow Urine Appearance Clear Urine pH 6.5 Urine Protein 3+ H Urine Glucose (UA) Negative Urine Ketones 1+ H Urine Blood 3+ H Urine Nitrite Negative Urine Bilirubin Negative Urine Urobilinogen 0.2 Ur Leukocyte Esterase Trace H Urine RBC 80-100 Urine WBC 10-20 Urine Bacteria Active Medications Generic Name Dose Route Start Last Admin Trade Name Mayelin PRN Reason Stop Dose Admin Acetaminophen 650 mg 12/02/18 16:13 12/03/18 06:12 Tylenol - PO 650 mg Q6H PRN Administration PAIN LEVEL 1-5 Sodium Chloride 1,000 mls @ 100 mls/hr 12/02/18 16:15 12/02/18 17:33 Normal Saline - IV 100 mls/hr ASDIR CANDACE Administration Vancomycin HCl 1,500 mg/ 500 mls @ 125 mls/hr 12/03/18 08:45 Dextrose IVPB Q12H CANDACE Protocol Meropenem 1 gm/ Dextrose 100 mls @ 200 mls/hr 12/03/18 18:00 IVPB Q8H-IV CANDACE --CTAP: (1) left kidney pyelo; (2) ureteritis; (3) left double-J ureteral stent ASSESSMENT/PLAN 28 year-old male with a PMH significant for kidney stones s/p lithotripsy and ureteral stents x 2 (October 2018). Admitted for sepsis secondary to pyelonephritis. Sepsis secondary to left kidney pyelonephritis Ureteritis s/p ureteral stents x 2 --operative reports from 10/27 documents placement of two (2) ureteral stents on the left; patient had stent removal at Dr. Guzmán's office on 11/17, prescribed 5 days of antibiotics, only took for 3 days; CT on 12/02 shows remaining left double-J uretetral stent --patient now with sepsis secondary to pyelo; Tm 102.2, WBC 13.3k --start meropenem --ID followng --Dr. Guzmán not available due to personal emergency, Dr. Sepulveda has agreed to see patient, appreciated Gout --stable Hypokalemia --resolved FEN Fluids: NS @100mL/hr Electrolytes: replete as indicated Nutrition: regular diet DVT prophylaxis: SCDs, oob, ambulation; avoid chemical prophylaxis due to possible intervention to remove stent Dispo: continues to require inpatient care. Full code. Visit type - Emergency Visit Emergency Visit: Yes ED Registration Date: 12/02/18 Care time: The patient presented to the Emergency Department on the above date and was hospitalized for further evaluation of their emergent condition. - New Patient This patient is new to me today: No - Critical Care Critical Care patient: No
[2018-12-03] MEDS ORDERED: SODIUM CHLORIDE 1,000 ML IV STA (14:04)
[2018-12-03] MEDS ORDERED: ACETAMINOPHEN/CAFFEINE/BUTALBITAL 1 TAB PO ONE (14:43)
[2018-12-03] MEDS: SODIUM CHLORIDE 1,000 ML IV SCH (17:26)
[2018-12-03] MEDS: MEROPENEM 1 GM in DEXTROSE 5%-WATER 100 ML IVPB SCH (18:34)
[2018-12-03] MEDS: IBUPROFEN 600 MG TABLET (FP) PO PRN (21:21)
[2018-12-03] MEDS: MELATONIN 5 MG TABLETS PO SCH (21:22)
[2018-12-04] MEDS ORDERED: DEXTROSE 5%-WATER 100 ML IVPB ONE ×2 (00:14→09:13)
[2018-12-04] MEDS ORDERED: MEROPENEM 1 GM VIAL (RESTRICTED TO ID) IVPB ONE ×2 (00:15→09:13)
[2018-12-04] MEDS: MEROPENEM 1 GM in DEXTROSE 5%-WATER 100 ML IVPB SCH ×2 (01:04→10:04)
[2018-12-04 08:04] LABS: INR 1.54 (0.82-1.09); PROTHROMBIN TIME (PATIENT) 17.1 SEC (10.2-13.0)
[2018-12-04 08:05] LABS: BASO % 0.2 % (0-2.0); EOS % 0.2 % (0-4.5); HEMATOCRIT 35.9 % (35.4-49); HEMOGLOBIN 11.9 GM/dl (11.7-16.9); MCH 29.5 pg (25.7-33.7); MCHC 33.3 g/dl (32.0-35.9); MEAN CELL VOLUME 88.7 fl (80-96); MEAN PLT VOLUME 8.1 fl (7.5-11.1); MONO % 13.6 % (3.8-10.2); PLATELET COUNT 236 K/MM3 (134-434); RBC 4.05 M/mm3 (4.00-5.60); RDW 13.1 % (11.9-15.9); WHITE BLOOD COUNT 9.9 K/mm3 (4.0-10.8)
[2018-12-04 08:18] LABS: ALBUMIN 3.1 g/dl (3.4-5.0); BILIRUBIN,TOTAL 0.8 mg/dl (0.2-1); CALCIUM 8.9 mg/dl (8.5-10); POTASSIUM 3.8 mmol/L (3.5-5.1); TOT PROT 7.1 g/dl (6.4-8.2)
[2018-12-04 08:31] LABS: BILIRUBIN,DIRECT 0.1 mg/dL (0.0-0.2)
[2018-12-04] MEDS: IBUPROFEN 600 MG TABLET (FP) PO PRN ×2 (13:01→21:06)
--- NOTE | 2018-12-04 14:12 | PN ---
Physical Exam: SUBJECTIVE: Patient seen and examined. Continues to feel unwell, not sleeping well, mild headache, bodyaches. Episode of sweats. OBJECTIVE: Vital Signs Period Temp Pulse Resp BP Sys/French Pulse Ox Last 24 Hr 98.2 F-103.1 F 71-101 18-19 115-150/57-75 100-100 GENERAL: The patient is awake, alert, and fully oriented, in no acute distress. LUNGS: Breath sounds equal, clear to auscultation bilaterally, no wheezes, no crackles, no accessory muscle use. HEART: Regular rate and rhythm, S1, S2 without murmur, rub or gallop. ABDOMEN: Soft, nontender, nondistended EXTREMITIES: 2+ pulses, warm, well-perfused, no edema. NEUROLOGICAL: Cranial nerves II through XII grossly intact. Normal speech Laboratory Results - last 24 hr 12/04/18 12/04/18 12/04/18 07:20 07:20 07:20 WBC 9.9 RBC 4.05 Hgb 11.9 Hct 35.9 MCV 88.7 MCH 29.5 MCHC 33.3 RDW 13.1 Plt Count 236 MPV 8.1 Absolute Neuts (auto) 6.7 Neutrophils % 67.0 Lymphocytes % 19.0 D Monocytes % 13.6 H Eosinophils % 0.2 D Basophils % 0.2 PT with INR 17.1 H INR 1.54 H Sodium 140 Potassium 3.8 Chloride 105 Carbon Dioxide 27 Anion Gap 8 BUN 11.0 Creatinine 1.0 Est GFR (CKD-EPI)AfAm 116.54 Est GFR (CKD-EPI)NonAf 100.55 Random Glucose 107 H Calcium 8.9 Magnesium 2.0 Total Bilirubin 0.8 Direct Bilirubin 0.1 AST 24 ALT 29 Alkaline Phosphatase 34 L Total Protein 7.1 Albumin 3.1 L Active Medications Generic Name Dose Route Start Last Admin Trade Name Freq PRN Reason Stop Dose Admin Acetaminophen 650 mg 12/02/18 16:13 12/03/18 21:26 Tylenol - PO 650 mg Q6H PRN Administration PAIN LEVEL 1-5 Sodium Chloride 1,000 mls @ 100 mls/hr 12/02/18 16:15 12/03/18 17:26 Normal Saline - IV 100 mls/hr ASDIR CANDACE Administration Meropenem 1 gm/ Dextrose 100 mls @ 200 mls/hr 12/03/18 18:00 12/04/18 10:04 IVPB 200 mls/hr Q8H-IV CANDACE Administration Ibuprofen 600 mg 12/03/18 19:37 12/04/18 13:01 Motrin - PO 600 mg Q6H PRN Administration PAIN (HEADACHE) Melatonin 10 mg 12/03/18 22:00 12/03/18 21:22 Melatonin PO 10 mg HS CANDACE Administration CTAP: (1) left kidney pyelo; (2) ureteritis; (3) left double-J ureteral stent ASSESSMENT/PLAN 28 year-old male with a PMH significant for kidney stones s/p lithotripsy and ureteral stents x 2 (October 2018). Admitted for sepsis secondary to pyelonephritis. Sepsis secondary to left kidney pyelonephritis Ureteritis s/p ureteral stents x 2 --operative reports from 10/27 documents placement of two (2) ureteral stents on the left; patient had stent removal at Dr. Guzmán's office on 11/17, prescribed 5 days of antibiotics, only took for 3 days; CT on 12/02 shows remaining left double-J uretetral stent --spiking fevers, Tm 102.7 --culture (+) Group D strep or enterococcus --continue meropenem (day #2) --seen and evaluated by urology Dr. Sepulveda, will need ESWL after pyelo is resolved --ID following Gout --stable FEN Fluids: NS @100mL/hr Electrolytes: replete as indicated Nutrition: regular diet DVT prophylaxis: SCDs, oob, ambulation; subq lovenox Dispo: continues to require inpatient care. Full code. Visit type - Emergency Visit Emergency Visit: Yes ED Registration Date: 12/02/18 Care time: The patient presented to the Emergency Department on the above date and was hospitalized for further evaluation of their emergent condition. - New Patient This patient is new to me today: No - Critical Care Critical Care patient: No
[2018-12-04] MEDS: ENOXAPARIN NA (PORCINE) 40 MG/0.4 ML DISP.SYRIN SQ SCH (16:09)
--- NOTE | 2018-12-04 16:36 | PN ---
Progress Note, Physician History of Present Illness: starting to feel better still spiking fevers wbc has come down - Current Medication List Current Medications: Active Medications Acetaminophen (Tylenol -) 650 mg PO Q6H PRN PRN Reason: PAIN LEVEL 1-5 Last Admin: 12/03/18 21:26 Dose: 650 mg Enoxaparin Sodium (Lovenox -) 40 mg SQ DAILY [facility] Last Admin: 12/04/18 16:09 Dose: Not Given Sodium Chloride (Normal Saline -) 1,000 mls @ 100 mls/hr IV ASDIR CANDACE Last Admin: 12/03/18 17:26 Dose: 100 mls/hr Meropenem 1 gm/ Dextrose 100 mls @ 200 mls/hr IVPB Q8H-IV CANDACE Last Admin: 12/04/18 10:04 Dose: 200 mls/hr Ibuprofen (Motrin -) 600 mg PO Q6H PRN PRN Reason: PAIN (HEADACHE) Last Admin: 12/04/18 13:01 Dose: 600 mg Melatonin (Melatonin) 10 mg PO HS [facility] Last Admin: 12/03/18 21:22 Dose: 10 mg - Objective Vital Signs: Vital Signs Temperature 98.6 F 12/04/18 15:00 Pulse Rate 90 12/04/18 14:00 Respiratory Rate 19 12/04/18 14:00 Blood Pressure 137/68 12/04/18 14:00 O2 Sat by Pulse Oximetry (%) 100 12/04/18 14:00 Constitutional: Yes: No Distress, Calm Cardiovascular: Yes: Regular Rate and Rhythm Respiratory: Yes: Regular, CTA Bilaterally Gastrointestinal: Yes: Normal Bowel Sounds, Soft Musculoskeletal: Yes: WNL Extremities: Yes: WNL Neurological: Yes: Alert, Oriented Psychiatric: Yes: Alert, Oriented Labs: CBC, BMP 12/04/18 07:20 12/04/18 07:20 INR, PTT INR 1.54 (0.82-1.09) H 12/04/18 07:20 Assessment/Plan 28 year-old male with a PMH significant for kidney stones s/p lithotripsy and ureteral stents x 2 (October 2018). Admitted for sepsis secondary to pyelonephritis. Sepsis secondary to left kidney pyelonephritis Ureteritis Gout Hypokalemia --resolved h/o of kidney stones plan continue hydration organism noted will change abx to zosyn await for final identification rest as per the team
[2018-12-04] MEDS ORDERED: DEXTROSE 5%-WATER - 50 ML IVPB ONE (17:08)
[2018-12-04] MEDS ORDERED: PIPERACILLIN/TAZOBACTAM 3.375 GM VIAL IVPB ONE (17:08)
[2018-12-04] MEDS: SODIUM CHLORIDE 1,000 ML IV SCH (17:18)
[2018-12-04] MEDS: PIPERACILLIN/TAZOB 3.375 GM 3.375 GM in DEXTROSE 5%-WATER - 50 ML IVPB SCH (17:18)
[2018-12-04] MEDS: MELATONIN 5 MG TABLETS PO SCH (21:06)
[2018-12-05] MEDS ORDERED: DEXTROSE 5%-WATER - 50 ML IVPB ONE ×3 (00:01→18:01)
[2018-12-05] MEDS: PIPERACILLIN/TAZOB 3.375 GM 3.375 GM in DEXTROSE 5%-WATER - 50 ML IVPB SCH ×3 (01:23→18:16)
[2018-12-05 08:18] LABS: BILIRUBIN,TOTAL 0.6 mg/dl (0.2-1); CALCIUM 8.5 mg/dl (8.5-10); MAGNESIUM 1.8 mg/dL (1.8-2.4); POTASSIUM 3.5 mmol/L (3.5-5.1)
[2018-12-05 08:35] LABS: BASO % 0.3 % (0-2.0); EOS % 0.8 % (0-4.5); HEMATOCRIT 33.3 % (35.4-49); HEMOGLOBIN 11.4 GM/dl (11.7-16.9); LYMPH % 26.3 % (8-40); MCH 30.2 pg (25.7-33.7); MCHC 34.3 g/dl (32.0-35.9); MEAN CELL VOLUME 88.3 fl (80-96); MEAN PLT VOLUME 8.3 fl (7.5-11.1); MONO % 9.3 % (3.8-10.2); NEUT % 63.3 % (42.8-82.8); PLATELET COUNT 264 K/MM3 (134-434); RBC 3.78 M/mm3 (4.00-5.60); RDW 13.1 % (11.9-15.9); WHITE BLOOD COUNT 9.3 K/mm3 (4.0-10.8)
--- NOTE | 2018-12-05 10:17 | PN ---
Progress Note, Physician History of Present Illness: stable no new issues starting to become afebrile - Current Medication List Current Medications: Active Medications Acetaminophen (Tylenol -) 650 mg PO Q6H PRN PRN Reason: PAIN LEVEL 1-5 Last Admin: 12/03/18 21:26 Dose: 650 mg Enoxaparin Sodium (Lovenox -) 40 mg SQ DAILY [facility] Last Admin: 12/04/18 16:09 Dose: Not Given Sodium Chloride (Normal Saline -) 1,000 mls @ 100 mls/hr IV ASDIR CANDACE Last Admin: 12/04/18 17:18 Dose: 100 mls/hr Piperacillin Sod/Tazobactam (Sod 3.375 gm/ Dextrose) 50 mls @ 100 mls/hr IVPB Q8H-IV C[facility]ACE; Protocol Last Admin: 12/05/18 01:23 Dose: 100 mls/hr Ibuprofen (Motrin -) 600 mg PO Q6H PRN PRN Reason: PAIN (HEADACHE) Last Admin: 12/04/18 21:06 Dose: 600 mg Melatonin (Melatonin) 10 mg PO HS [facility] Last Admin: 12/04/18 21:06 Dose: 10 mg - Objective Vital Signs: Vital Signs Temperature 97.8 F 12/05/18 06:00 Pulse Rate 62 12/05/18 06:00 Respiratory Rate 17 12/05/18 06:00 Blood Pressure 130/84 12/05/18 06:00 O2 Sat by Pulse Oximetry (%) 99 12/05/18 06:00 Constitutional: Yes: No Distress, Calm Cardiovascular: Yes: Regular Rate and Rhythm Respiratory: Yes: Regular, CTA Bilaterally Gastrointestinal: Yes: Normal Bowel Sounds, Soft Musculoskeletal: Yes: WNL Extremities: Yes: WNL Neurological: Yes: Alert, Oriented Psychiatric: Yes: Alert, Oriented Labs: CBC, BMP 12/05/18 06:35 12/05/18 06:35 INR, PTT INR 1.54 (0.82-1.09) H 12/04/18 07:20 Assessment/Plan 28 year-old male with a PMH significant for kidney stones s/p lithotripsy and ureteral stents x 2 (October 2018). Admitted for sepsis secondary to pyelonephritis. Sepsis secondary to left kidney pyelonephritis Ureteritis Gout Hypokalemia --resolved h/o of kidney stones plan continue hydration organism noted conitnue current abx rest as per the team
[2018-12-05] MEDS ORDERED: PIPERACILLIN/TAZOBACTAM 3.375 GM VIAL IVPB ONE ×3 (10:18→18:01)
[2018-12-05] MEDS: IBUPROFEN 600 MG TABLET (FP) PO PRN (10:27)
[2018-12-05] MEDS: ENOXAPARIN NA (PORCINE) 40 MG/0.4 ML DISP.SYRIN SQ SCH (10:28)
--- NOTE | 2018-12-05 14:59 | PN ---
Physical Exam: SUBJECTIVE: Patient seen and examined oob to chair. OBJECTIVE: Vital Signs Period Temp Pulse Resp BP Sys/French Pulse Ox Last 24 Hr 97.8 F-98.6 F 62-76 17-19 130-149/68-86 98-100 GENERAL: The patient is awake, alert, and fully oriented, in no acute distress. LUNGS: Breath sounds equal, clear to auscultation bilaterally, no wheezes, no crackles, no accessory muscle use. HEART: Regular rate and rhythm, S1, S2 without murmur, rub or gallop. ABDOMEN: Soft, nontender, nondistended EXTREMITIES: 2+ pulses, warm, well-perfused, no edema. NEUROLOGICAL: Cranial nerves II through XII grossly intact. Normal speech Laboratory Results - last 24 hr 12/05/18 12/05/18 06:35 06:35 WBC 9.3 RBC 3.78 L Hgb 11.4 L Hct 33.3 L MCV 88.3 MCH 30.2 MCHC 34.3 RDW 13.1 Plt Count 264 MPV 8.3 Absolute Neuts (auto) 5.9 Neutrophils % 63.3 Lymphocytes % 26.3 D Monocytes % 9.3 Eosinophils % 0.8 D Basophils % 0.3 Sodium 140 Potassium 3.5 Chloride 105 Carbon Dioxide 27 Anion Gap 8 BUN 13.0 Creatinine 1.0 Est GFR (CKD-EPI)AfAm 116.54 Est GFR (CKD-EPI)NonAf 100.55 Random Glucose 107 H Calcium 8.5 Magnesium 1.8 Total Bilirubin 0.6 AST 24 ALT 28 Alkaline Phosphatase 35 L Total Protein 7.0 Albumin 3.0 L Active Medications Generic Name Dose Route Start Last Admin Trade Name Mattyq PRN Reason Stop Dose Admin Acetaminophen 650 mg 12/02/18 16:13 12/03/18 21:26 Tylenol - PO 650 mg Q6H PRN Administration PAIN LEVEL 1-5 Enoxaparin Sodium 40 mg 12/04/18 14:15 12/05/18 10:28 Lovenox - SQ 40 mg DAILY CANDACE Administration Sodium Chloride 1,000 mls @ 100 mls/hr 12/02/18 16:15 12/04/18 17:18 Normal Saline - IV 100 mls/hr ASDIR CANDACE Administration Piperacillin Sod/Tazobactam 50 mls @ 100 mls/hr 12/04/18 18:00 12/05/18 10:29 Sod 3.375 gm/ Dextrose IVPB 100 mls/hr Q8H-IV CANDACE Administration Protocol Ibuprofen 600 mg 12/03/18 19:37 12/05/18 10:27 Motrin - PO 600 mg Q6H PRN Administration PAIN (HEADACHE) Melatonin 10 mg 12/03/18 22:00 12/04/18 21:06 Melatonin PO 10 mg HS CANDACE Administration CTAP: (1) left kidney pyelo; (2) ureteritis; (3) left double-J ureteral stent ASSESSMENT/PLAN 28 year-old male with a PMH significant for kidney stones s/p lithotripsy and ureteral stents x 2 (October 2018). Admitted for sepsis secondary to pyelonephritis. Sepsis secondary to left kidney pyelonephritis Ureteritis s/p ureteral stents x 2 --operative reports from 10/27 documents placement of two (2) ureteral stents on the left; patient had stent removal at Dr. Guzmán's office on 11/17, prescribed 5 days of antibiotics, only took for 3 days; CT on 12/02 shows remaining left double-J uretetral stent --Tm 102.5, leukocytosis resolved --culture (+) Enterococcus --switched to Zosyn on 12/04 (today is day #3 of IV antibiotics) --seen and evaluated by urology Dr. Sepulveda, will need ESWL after pyelo is resolved --ID following Gout --stable FEN Fluids: PO intake adequate Electrolytes: replete as indicated Nutrition: regular diet DVT prophylaxis: SCDs, oob, ambulation; subq lovenox Dispo: continues to require inpatient care. Full code. Visit type - Emergency Visit Emergency Visit: Yes ED Registration Date: 12/02/18 Care time: The patient presented to the Emergency Department on the above date and was hospitalized for further evaluation of their emergent condition. - New Patient This patient is new to me today: No - Critical Care Critical Care patient: No
[2018-12-05] MEDS: MELATONIN 5 MG TABLETS PO SCH (21:27)
[2018-12-05] MEDS: ACETAMINOPHEN 325 MG TABLET (FP) PO PRN (21:27)
[2018-12-06] MEDS ORDERED: PIPERACILLIN/TAZOBACTAM 3.375 GM VIAL IVPB ONE ×3 (00:54→18:29)
[2018-12-06] MEDS ORDERED: DEXTROSE 5%-WATER - 50 ML IVPB ONE ×3 (00:55→18:30)
[2018-12-06] MEDS: PIPERACILLIN/TAZOB 3.375 GM 3.375 GM in DEXTROSE 5%-WATER - 50 ML IVPB SCH ×3 (01:57→19:21)
--- NOTE | 2018-12-06 08:16 | PN ---
Progress Note, Physician Chief Complaint: No complaints overnight History of Present Illness: 28 year-old male with a PMH significant for kidney stones s/p lithotripsy and ureteral stents x 2 (October 2018). Admitted for sepsis secondary to pyelonephritis. - Current Medication List Current Medications: Active Medications Acetaminophen (Tylenol -) 650 mg PO Q6H PRN PRN Reason: PAIN LEVEL 1-5 Last Admin: 12/05/18 21:27 Dose: 650 mg Enoxaparin Sodium (Lovenox -) 40 mg SQ DAILY [facility] Last Admin: 12/05/18 10:28 Dose: 40 mg Piperacillin Sod/Tazobactam (Sod 3.375 gm/ Dextrose) 50 mls @ 100 mls/hr IVPB Q8H-IV C[facility]ACE; Protocol Last Admin: 12/06/18 01:57 Dose: 100 mls/hr Melatonin (Melatonin) 10 mg PO HS [facility] Last Admin: 12/05/18 21:27 Dose: 10 mg - Objective Vital Signs: Vital Signs Temperature 98.6 F 12/06/18 06:00 Pulse Rate 68 12/06/18 06:00 Respiratory Rate 18 12/06/18 06:00 Blood Pressure 126/69 12/06/18 06:00 O2 Sat by Pulse Oximetry (%) 99 12/06/18 06:00 Constitutional: Yes: Well Nourished, No Distress, Calm Eyes: Yes: WNL, Conjunctiva Clear, EOM Intact HENT: Yes: WNL, Atraumatic, Normocephalic Neck: Yes: WNL, Supple, Trachea Midline Cardiovascular: Yes: WNL, Regular Rate and Rhythm Respiratory: Yes: WNL, Regular, CTA Bilaterally Gastrointestinal: Yes: WNL, Normal Bowel Sounds, Soft, Abdomen, Obese ...Rectal Exam: Yes: Deferred Breast(s): Yes: WNL Musculoskeletal: Yes: WNL Extremities: Yes: WNL Edema: No Peripheral Pulses WNL: Yes Integumentary: Yes: WNL Neurological: Yes: WNL, Alert, Oriented ...Motor Strength: WNL Psychiatric: Yes: WNL, Alert, Oriented Labs: CBC, BMP 12/05/18 06:35 12/05/18 06:35 INR, PTT INR 1.54 (0.82-1.09) H 12/04/18 07:20 - ....Imaging Cat Scan: Report Reviewed (CT: left J urethral stent noted, L hydronephritis, left pyleonephritis) Problem List - Problems (1) Obesity (BMI 30-39.9) Assessment/Plan: BMI 36.9 low fat low calorie diet upron discharge counseled on weight loss Code(s): E66.9 - OBESITY, UNSPECIFIED (2) Pyelonephritis Assessment/Plan: s/p ureteral stents x 2 -operative reports from 10/27 documents placement of two (2) ureteral stents on the left; patient had stent removal at Dr. Guzmán's office on 11/17, prescribed 5 days of antibiotics, only took for 3 days; CT on 12/02 shows remaining left double-J uretetral stent -afebrile, leukocytosis resolved - urine culture with enteroccous faecalis -monitor temp and cbc -c/w zosyn -appreciate ID & consultation Code(s): N12 - TUBULO-INTERSTITIAL NEPHRITIS, NOT SPCF ACUTE OR CHRONIC (3) MARILIN (acute kidney injury) Assessment/Plan: resolving, Cr 1.0 being treated for pyleonephritis c/w IVF moniotr cmp avoid nephrotoxic agents appreciate consultation Code(s): N17.9 - ACUTE KIDNEY FAILURE, UNSPECIFIED (4) Prophylactic measure Assessment/Plan: FEN Fluids: PO intake adequate Electrolytes: replete as indicated Nutrition: regular diet DVT prophylaxis: SCDs, oob, ambulation; subq lovenox Dispo: continues to require inpatient care. Full code. Code(s): Z29.9 - ENCOUNTER FOR PROPHYLACTIC MEASURES, UNSPECIFIED (5) Gout Assessment/Plan: stable, no home meds Code(s): M10.9 - GOUT, UNSPECIFIED Visit type - Emergency Visit Emergency Visit: Yes ED Registration Date: 12/02/18 Care time: The patient presented to the Emergency Department on the above date and was hospitalized for further evaluation of their emergent condition. - New Patient This patient is new to me today: Yes Date on this admission: 12/06/18 - Critical Care Critical Care patient: No - Discharge Referral Referred to [facility] Med P.C.: No
--- NOTE | 2018-12-06 09:03 | PN ---
Progress Note, Physician History of Present Illness: patient stable doing well has remained afebrile still c/o of foul smelling urine - Current Medication List Current Medications: Active Medications Acetaminophen (Tylenol -) 650 mg PO Q6H PRN PRN Reason: PAIN LEVEL 1-5 Last Admin: 12/05/18 21:27 Dose: 650 mg Enoxaparin Sodium (Lovenox -) 40 mg SQ DAILY [facility] Last Admin: 12/05/18 10:28 Dose: 40 mg Piperacillin Sod/Tazobactam (Sod 3.375 gm/ Dextrose) 50 mls @ 100 mls/hr IVPB Q8H-IV CANDACE; Protocol Last Admin: 12/06/18 01:57 Dose: 100 mls/hr Melatonin (Melatonin) 10 mg PO HS [facility] Last Admin: 12/05/18 21:27 Dose: 10 mg - Objective Vital Signs: Vital Signs Temperature 98.6 F 12/06/18 06:00 Pulse Rate 68 12/06/18 06:00 Respiratory Rate 18 12/06/18 06:00 Blood Pressure 126/69 12/06/18 06:00 O2 Sat by Pulse Oximetry (%) 99 12/06/18 06:00 Constitutional: Yes: No Distress, Calm Cardiovascular: Yes: Regular Rate and Rhythm Respiratory: Yes: Regular, CTA Bilaterally Gastrointestinal: Yes: Normal Bowel Sounds, Soft Musculoskeletal: Yes: WNL Extremities: Yes: WNL Neurological: Yes: Alert, Oriented Psychiatric: Yes: Alert, Oriented Labs: CBC, BMP 12/05/18 06:35 12/05/18 06:35 INR, PTT INR 1.54 (0.82-1.09) H 12/04/18 07:20 Assessment/Plan 28 year-old male with a PMH significant for kidney stones s/p lithotripsy and ureteral stents x 2 (October 2018). Admitted for sepsis secondary to pyelonephritis. Sepsis secondary to left kidney pyelonephritis Ureteritis Gout Hypokalemia --resolved h/o of kidney stones plan continue abx if patient remans stable will deescalte in a day o so rest as per the team
[2018-12-06] MEDS: ENOXAPARIN NA (PORCINE) 40 MG/0.4 ML DISP.SYRIN SQ SCH (09:45)
[2018-12-06] MEDS: MELATONIN 5 MG TABLETS PO SCH (21:56)
[2018-12-07] MEDS ORDERED: DEXTROSE 5%-WATER - 50 ML IVPB ONE ×3 (00:09→17:38)
[2018-12-07] MEDS ORDERED: PIPERACILLIN/TAZOBACTAM 3.375 GM VIAL IVPB ONE ×3 (00:09→17:38)
[2018-12-07] MEDS: PIPERACILLIN/TAZOB 3.375 GM 3.375 GM in DEXTROSE 5%-WATER - 50 ML IVPB SCH ×3 (01:41→18:02)
--- NOTE | 2018-12-07 08:29 | PN ---
Progress Note, Physician Chief Complaint: No complaints overnight History of Present Illness: 28 year-old male with a PMH significant for kidney stones s/p lithotripsy and ureteral stents x 2 (October 2018). Admitted for sepsis secondary to pyelonephritis. - Current Medication List Current Medications: Active Medications Acetaminophen (Tylenol -) 650 mg PO Q6H PRN PRN Reason: PAIN LEVEL 1-5 Last Admin: 12/05/18 21:27 Dose: 650 mg Enoxaparin Sodium (Lovenox -) 40 mg SQ DAILY [facility] Last Admin: 12/06/18 09:45 Dose: 40 mg Piperacillin Sod/Tazobactam (Sod 3.375 gm/ Dextrose) 50 mls @ 100 mls/hr IVPB Q8H-IV [facility]; Protocol Last Admin: 12/07/18 01:41 Dose: 100 mls/hr Melatonin (Melatonin) 10 mg PO HS [facility] Last Admin: 12/06/18 21:56 Dose: 10 mg - Objective Vital Signs: Vital Signs Temperature 98.4 F 12/07/18 06:00 Pulse Rate 65 12/07/18 06:00 Respiratory Rate 12/07/18 06:00 Blood Pressure 143/91 12/07/18 06:00 O2 Sat by Pulse Oximetry (%) 97 12/07/18 06:00 Constitutional: Yes: Well Nourished, No Distress, Calm, Obese Eyes: Yes: WNL, Conjunctiva Clear, EOM Intact HENT: Yes: WNL, Atraumatic, Normocephalic Neck: Yes: WNL, Supple, Trachea Midline Cardiovascular: Yes: WNL, Regular Rate and Rhythm Respiratory: Yes: WNL, Regular, CTA Bilaterally Gastrointestinal: Yes: WNL, Normal Bowel Sounds, Soft ...Rectal Exam: Yes: Deferred Genitourinary: Yes: WNL Breast(s): Yes: WNL Musculoskeletal: Yes: WNL Extremities: Yes: WNL Edema: No Peripheral Pulses WNL: Yes Integumentary: Yes: WNL Neurological: Yes: WNL, Alert, Oriented ...Motor Strength: WNL Psychiatric: Yes: WNL, Alert, Oriented Labs: CBC, BMP 12/05/18 06:35 12/05/18 06:35 INR, PTT INR 1.54 (0.82-1.09) H 12/04/18 07:20 - ....Imaging Cat Scan: Report Reviewed Problem List - Problems (1) Obesity (BMI 30-39.9) Assessment/Plan: BMI 36.9 low fat low calorie diet upron discharge counseled on weight loss Code(s): E66.9 - OBESITY, UNSPECIFIED (2) Pyelonephritis Assessment/Plan: s/p ureteral stents x 2 -operative reports from 10/27 documents placement of two (2) ureteral stents on the left; patient had stent removal at Dr. Guzmán's office on 11/17, prescribed 5 days of antibiotics, only took for 3 days; CT on 12/02 shows remaining left double-J uretetral stent -afebrile, leukocytosis resolved - urine culture with enteroccous faecalis -monitor temp and cbc -c/w zosyn, will deescalte by tomorrow to oral -appreciate ID & consultation Code(s): N12 - TUBULO-INTERSTITIAL NEPHRITIS, NOT SPCF ACUTE OR CHRONIC (3) MARILIN (acute kidney injury) Assessment/Plan: resolving, Cr 0.9 being treated for pyleonephritis c/w IVF monitor cmp avoid nephrotoxic agents appreciate consultation Code(s): N17.9 - ACUTE KIDNEY FAILURE, UNSPECIFIED (4) Prophylactic measure Assessment/Plan: FEN Fluids: PO intake adequate Electrolytes: replete as indicated Nutrition: regular diet DVT prophylaxis: SCDs, oob, ambulation; subq lovenox Dispo: continues to require inpatient care. Full code. Code(s): Z29.9 - ENCOUNTER FOR PROPHYLACTIC MEASURES, UNSPECIFIED (5) Gout Assessment/Plan: stable, no home meds Code(s): M10.9 - GOUT, UNSPECIFIED Visit type - Emergency Visit Emergency Visit: Yes ED Registration Date: 12/02/18 Care time: The patient presented to the Emergency Department on the above date and was hospitalized for further evaluation of their emergent condition. - New Patient This patient is new to me today: No - Critical Care Critical Care patient: No - Discharge Referral Referred to [facility] Med P.C.: No
[2018-12-07 09:28] LABS: BASO % 0.6 % (0-2.0); EOS % 1.8 % (0-4.5); HEMATOCRIT 34.9 % (35.4-49); HEMOGLOBIN 11.5 GM/dl (11.7-16.9); LYMPH % 24.5 % (8-40); MCH 29.1 pg (25.7-33.7); MCHC 32.9 g/dl (32.0-35.9); MEAN CELL VOLUME 88.4 fl (80-96); MEAN PLT VOLUME 8.1 fl (7.5-11.1); MONO % 8.4 % (3.8-10.2); NEUT % 64.7 % (42.8-82.8); PLATELET COUNT 407 K/MM3 (134-434); RBC 3.95 M/mm3 (4.00-5.60); RDW 12.6 % (11.9-15.9); WHITE BLOOD COUNT 9.6 K/mm3 (4.0-10.8)
[2018-12-07 09:48] LABS: ALBUMIN 3.1 g/dl (3.4-5.0); BILIRUBIN,TOTAL 0.8 mg/dl (0.2-1); CALCIUM 8.8 mg/dl (8.5-10); CREATININE 0.9 mg/dl (0.55-1.3); MAGNESIUM 1.8 mg/dL (1.8-2.4); POTASSIUM 3.5 mmol/L (3.5-5.1); TOT PROT 7.2 g/dl (6.4-8.2)
[2018-12-07] MEDS: ENOXAPARIN NA (PORCINE) 40 MG/0.4 ML DISP.SYRIN SQ SCH (10:00)
--- NOTE | 2018-12-07 12:02 | PN ---
Progress Note, Physician History of Present Illness: patient stable no new issues - Current Medication List Current Medications: Active Medications Acetaminophen (Tylenol -) 650 mg PO Q6H PRN PRN Reason: PAIN LEVEL 1-5 Last Admin: 12/05/18 21:27 Dose: 650 mg Enoxaparin Sodium (Lovenox -) 40 mg SQ DAILY [facility] Last Admin: 12/07/18 10:00 Dose: Not Given Piperacillin Sod/Tazobactam (Sod 3.375 gm/ Dextrose) 50 mls @ 100 mls/hr IVPB Q8H-IV [facility]; Protocol Last Admin: 12/07/18 10:00 Dose: 100 mls/hr Melatonin (Melatonin) 10 mg PO HS [facility] Last Admin: 12/06/18 21:56 Dose: 10 mg - Objective Vital Signs: Vital Signs Temperature 98.0 F 12/07/18 10:00 Pulse Rate 66 12/07/18 10:00 Respiratory Rate 20 12/07/18 10:00 Blood Pressure 138/87 12/07/18 10:00 O2 Sat by Pulse Oximetry (%) 97 12/07/18 06:00 Constitutional: Yes: No Distress, Calm Cardiovascular: Yes: Regular Rate and Rhythm Respiratory: Yes: Regular, CTA Bilaterally Gastrointestinal: Yes: Normal Bowel Sounds, Soft Musculoskeletal: Yes: WNL Extremities: Yes: WNL Neurological: Yes: Alert, Oriented Psychiatric: Yes: Alert, Oriented Labs: CBC, BMP 12/07/18 06:35 12/07/18 06:35 INR, PTT INR 1.54 (0.82-1.09) H 12/04/18 07:20 Assessment/Plan 28 year-old male with a PMH significant for kidney stones s/p lithotripsy and ureteral stents x 2 (October 2018). Admitted for sepsis secondary to pyelonephritis. Sepsis secondary to left kidney pyelonephritis Ureteritis Gout Hypokalemia --resolved h/o of kidney stones plan continue abx will deescalte by tomorrow to oral
[2018-12-07] MEDS ORDERED: COLCHICINE 0.6 MG CAP PO ONE (13:58)
[2018-12-07] MEDS ORDERED: COLCHICINE 0.6 MG CAP PO SCH (14:00)
[2018-12-07] MEDS: ACETAMINOPHEN 325 MG TABLET (FP) PO PRN (20:33)
[2018-12-07] MEDS: MELATONIN 5 MG TABLETS PO SCH (21:29)
[2018-12-08] MEDS ORDERED: DEXTROSE 5%-WATER - 50 ML IVPB ONE ×3 (01:48→09:08)
[2018-12-08] MEDS ORDERED: PIPERACILLIN/TAZOBACTAM 3.375 GM VIAL IVPB ONE ×3 (01:48→09:08)
[2018-12-08] MEDS: PIPERACILLIN/TAZOB 3.375 GM 3.375 GM in DEXTROSE 5%-WATER - 50 ML IVPB SCH ×2 (01:53→09:12)
[2018-12-08 07:53] LABS: BASO % 0.5 % (0-2.0); EOS % 2.6 % (0-4.5); HEMATOCRIT 35.8 % (35.4-49); HEMOGLOBIN 12.1 GM/dl (11.7-16.9); LYMPH % 23.7 % (8-40); MCH 29.8 pg (25.7-33.7); MEAN CELL VOLUME 87.8 fl (80-96); MEAN PLT VOLUME 7.8 fl (7.5-11.1); MONO % 9.6 % (3.8-10.2); NEUT % 63.6 % (42.8-82.8); PLATELET COUNT 478 K/MM3 (134-434); RBC 4.07 M/mm3 (4.00-5.60); RDW 12.6 % (11.9-15.9); WHITE BLOOD COUNT 10.6 K/mm3 (4.0-10.8)
[2018-12-08 08:00] LABS: ALBUMIN 3.1 g/dl (3.4-5.0); BILIRUBIN,TOTAL 0.7 mg/dl (0.2-1); CALCIUM 9.1 mg/dl (8.5-10); MAGNESIUM 1.9 mg/dL (1.8-2.4); POTASSIUM 3.7 mmol/L (3.5-5.1); TOT PROT 7.3 g/dl (6.4-8.2)
[2018-12-08] MEDS: ENOXAPARIN NA (PORCINE) 40 MG/0.4 ML DISP.SYRIN SQ SCH (09:18)
--- NOTE | 2018-12-08 10:17 | DS ---
Physical Exam: SUBJECTIVE: Patient seen and examined OBJECTIVE: Vital Signs Period Temp Pulse Resp BP Sys/French Pulse Ox Last 24 Hr 98.4 F-98.7 F 62-72 18-19 134-150/74-87 97-100 PHYSICAL EXAM GENERAL: The patient is awake, alert, and fully oriented, in no acute distress. LUNGS: Breath sounds equal, clear to auscultation bilaterally, no wheezes, no crackles, no accessory muscle use. HEART: Regular rate and rhythm, S1, S2 without murmur, rub or gallop. ABDOMEN: Soft, nontender, nondistended EXTREMITIES: 2+ pulses, warm, well-perfused, no edema. NEUROLOGICAL: Cranial nerves II through XII grossly intact. Normal speech LABS Laboratory Results - last 24 hr 12/08/18 12/08/18 06:50 06:50 WBC 10.6 RBC 4.07 Hgb 12.1 Hct 35.8 MCV 87.8 MCH 29.8 MCHC 34.0 RDW 12.6 Plt Count 478 H MPV 7.8 Absolute Neuts (auto) 6.7 Neutrophils % 63.6 Lymphocytes % 23.7 Monocytes % 9.6 Eosinophils % 2.6 Basophils % 0.5 Sodium 141 Potassium 3.7 Chloride 102 Carbon Dioxide 29 Anion Gap 10 BUN 10.0 Creatinine 1.0 Est GFR (CKD-EPI)AfAm 116.54 Est GFR (CKD-EPI)NonAf 100.55 Random Glucose 98 Calcium 9.1 Magnesium 1.9 Total Bilirubin 0.7 AST 43 H ALT 62 H Alkaline Phosphatase 46 Total Protein 7.3 Albumin 3.1 L HOSPITAL COURSE: Date of Admission:12/02/18 Date of Discharge: 12/08/18 Pre hospital course 28 year-old male with a PMH significant for kidney stones s/p lithotripsy and ureteral stents x 2 (October 2018). Patient had one stent removed on 11/17/[address] Guzmán. Was prescribed 5 days of an antibiotic but only took 3 days. Presented to the ED for evaluation of fever, diarrhea, and nausea that began 24 hours ago. Patient came home from work yesterday with a headache, nausea, bodyaches, profound fatigue, and dysuria. His temp was 103. He had two episodes of diarrhea, took Tylenol. [place] worse overnight and came to the ED today. ER course (1) T 101.5, WBC 17.4k, p130 (2) K 3.4 (3) CTAP: (1) left kidney pyelo; (2) ureteritis; (3) left double-J ureteral stent Subsequent hospital course by problem list Sepsis secondary to left kidney pyelonephritis Ureteritis s/p ureteral stents --operative reports from 10/27 documents placement of two (2) ureteral stents on the left; patient had one (1) stent removal at Dr. Guzmán's office on 11/17, prescribed 5 days of antibiotics, only took for 3 days; CT on 12/02 shows remaining left double-J uretetral stent --Tm 102.5, leukocytosis on admission, resolved --culture (+) Enterococcus --treated with Zosyn x 6 days; discharged on augmentin to complete 14 days of treatment --seen and evaluated by urology Dr. Sepulveda, will need ESWL after pyelo is resolved Gout --stable Minutes to complete discharge: 35 Discharge Summary Reason For Visit: ACUTE KIDNEY INJURY Current Active Problems Duplicated left renal collecting system (Acute) Gout (Acute) Hydronephrosis concurrent with and due to calculi of kidney and ureter (Acute) Leukocytosis (Acute) Obesity (BMI 30-39.9) (Acute) Pyelonephritis (Acute) Ureteritis (Acute) Condition: Stable - Instructions Diet, Activity, Other Instructions: An prescription has been sent to your pharmacy for augmentin which is an antibiotic. Take this medication as directed and be sure to finish all the medication. It is very important you follow up with a urologist. You were seen by Dr. Sepulveda in the hospital. His contact information is enclosed. Call his office today to make an appointment. Return to the emergency department for any new or worsening symptoms. Referrals: Neno Sepulveda MD [Staff Physician] - 2 Weeks Disposition: HOME - Home Medications Comprehensive Discharge Medication List: Ambulatory Orders NK [No Known Home Medication] 03/01/18 This patient is new to me today: No Emergency Visit: Yes ED Registration Date: 12/02/18 Care time: The patient presented to the Emergency Department on the above date and was hospitalized for further evaluation of their emergent condition. Critical Care patient: No - Discharge Referral Referred to [facility] No
[2018-12-08 10:28] VITALS: BP 144/80; PULSE 70; TEMP 98.5
--- NOTE | 2018-12-08 11:51 | PN ---
Progress Note, Physician History of Present Illness: stable no new issues gout flare - Current Medication List Current Medications: Active Medications Acetaminophen (Tylenol -) 650 mg PO Q6H PRN PRN Reason: PAIN LEVEL 1-5 Last Admin: 12/07/18 20:33 Dose: 650 mg Colchicine (Colcrys) 0.6 mg PO DAILY@1400 CANDACE Enoxaparin Sodium (Lovenox -) 40 mg SQ DAILY CANDACE Last Admin: 12/08/18 09:18 Dose: 40 mg Piperacillin Sod/Tazobactam (Sod 3.375 gm/ Dextrose) 50 mls @ 100 mls/hr IVPB Q8H-IV CANDACE; Protocol Last Admin: 12/08/18 09:12 Dose: 100 mls/hr Melatonin (Melatonin) 10 mg PO HS CANDACE Last Admin: 12/07/18 21:29 Dose: 10 mg - Objective Vital Signs: Vital Signs Temperature 98.5 F 12/08/18 10:00 Pulse Rate 70 12/08/18 10:00 Respiratory Rate 18 12/08/18 10:00 Blood Pressure 144/80 12/08/18 10:00 O2 Sat by Pulse Oximetry (%) 100 12/08/18 10:00 Constitutional: Yes: No Distress, Calm Cardiovascular: Yes: Regular Rate and Rhythm Respiratory: Yes: Regular, CTA Bilaterally Gastrointestinal: Yes: Normal Bowel Sounds, Soft Musculoskeletal: Yes: WNL Extremities: Yes: WNL Neurological: Yes: Alert, Oriented Psychiatric: Yes: Alert, Oriented Labs: CBC, BMP 12/08/18 06:50 12/08/18 06:50 INR, PTT INR 1.54 (0.82-1.09) H 12/04/18 07:20 Assessment/Plan 28 year-old male with a PMH significant for kidney stones s/p lithotripsy and ureteral stents x 2 (October 2018). Admitted for sepsis secondary to pyelonephritis. Sepsis secondary to left kidney pyelonephritis Ureteritis Gout Hypokalemia --resolved h/o of kidney stones plan continue abx augmentin 875 mg po bid for 5 days
[2018-12-08] MEDS ORDERED: COLCHICINE 0.6 MG CAP PO SCH (14:00)
== END 2018-12-08 12:27 | disposition home or self-care (01) | DRG 720 ==
LOC: FER 11:22 → FM/S 18:30
PROVIDERS: ADMIT Internal Medicine; ATTEND Nurse Practitioner Acute Care
DX: A41.89 Other specified sepsis (principal); N10 Acute pyelonephritis; E87.6 Hypokalemia; M10.9 Gout, unspecified; E66.9 Obesity, unspecified; Z68.36 Body mass index [BMI] 36.0-36.9, adult; N13.2 Hydronephrosis with renal and ureteral calculous obstruction; D72.829 Elevated white blood cell count, unspecified; N28.89 Other specified disorders of kidney and ureter
CPT/HCPCS: 36415; 74177-TC; 80048; 80053; 80076; 81003; 81015; 83605; 83735; 84100; 85025; 85610; 85730; 87040; 87086; 87186; 99283-25; J0131; J7030

== ENCOUNTER 2018-12-15 10:36 | Emergency (ER) | payer OTHER ==
[2018-12-15 10:50] VITALS: TEMP 98.2; BMI 38.4
[2018-12-15] MEDS ORDERED: KETOROLAC TROMETHAMINE 30 MG/1 ML VIAL IVPUSH ONE (11:09)
[2018-12-15 11:11] LABS: BASO % 0.8 % (0-2.0); HEMATOCRIT 41.4 % (35.4-49); HEMOGLOBIN 13.5 GM/dl (11.7-16.9); MCH 28.6 pg (25.7-33.7); MCHC 32.7 g/dl (32.0-35.9); MEAN CELL VOLUME 87.7 fl (80-96); MEAN PLT VOLUME 7.7 fl (7.5-11.1); MONO % 4.4 % (3.8-10.2); NEUT % 59.8 % (42.8-82.8); PLATELET COUNT 590 K/MM3 (134-434); RBC 4.72 M/mm3 (4.00-5.60); RDW 12.9 % (11.9-15.9); WHITE BLOOD COUNT 9.4 K/mm3 (4.0-10.8)
[2018-12-15] MEDS ORDERED: KETOROLAC TROMETHAMINE 30 MG/1 ML VIAL ONE (11:11)
--- NOTE | 2018-12-15 11:14 | PDOC ---
Attending Attestation - Resident Resident Name: Chapincito Wheat - ED Attending Attestation I have performed the following: I have examined & evaluated the patient, The case was reviewed & discussed with the resident, I agree w/resident's findings & plan - HPI HPI: 12/15/18 11:11 28 y/o male s/p stents, recent admission for pyelonephritis presents to ER with left flank pain. Patient currently on Augmentin and has appointment with Urologist tomorrow. Patient states he has one stent left. No N/V/d/C. Denies fever or chills. No fall or trauma. I admitted patient 2 weeks ago to hospital for pyelonephritis. - Physicial Exam PE: 12/15/18 11:13 VSS HEENT: unremarkable Heart: RRR w/o murmur Lungs: CTA b/l, no wheezes rhonchi or rales Abd: soft non tender +BS, no CVA tenderness b/l Neuro: grossly intact, no focal deficits noted - Medical Decision Making 12/15/18 13:18 Left sided pain, no WBC, labs normal. UA positive for UTI. CT: improved, minimal hydroneprosis, decreased stranding, no IV contrast used Will change antibiotic to Levaquin Toradol 10 mg every 6 hr as needed Fluids, rest Follow up with Urologist tomorrow Pt is in agreement with plan If worsen return to ER Final Dx: UTI, mild hydronephrosis Agree with plan and note reviewed with Dr. Wheat, resident
[2018-12-15 11:31] LABS: ALBUMIN 4.1 g/dl (3.4-5.0); BILIRUBIN,TOTAL 0.7 mg/dl (0.2-1); CALCIUM 10.2 mg/dl (8.5-10); CREATININE 0.9 mg/dl (0.55-1.3); POTASSIUM 4.2 mmol/L (3.5-5.1); TOT PROT 8.8 g/dl (6.4-8.2)
[2018-12-15 11:36] LABS: EPITHELIAL CELLS FEW /hpf
--- NOTE | 2018-12-15 11:58 | PDOC ---
History of Present Illness - General Chief Complaint: Pain Stated Complaint: LEFT SIDE PAIN INTO GROIN FOR 3 DAYS Time Seen by Provider: 12/15/18 10:39 - History of Present Illness Initial Comments: 12/15/18 11:52 28m with pmh of recurent UTI and pyelonephritis s/p stent removal (one urethral stent left) presents with worsening left flank pain radiating to groin. Supposed to see urologist Dr. Sepulveda tomorrow to set up stent removal. No fever, chills, chest pain, abdominal pain. No pain on urination, no foul smelling urine. Past History - Past Medical History Allergies/Adverse Reactions: Allergies Allergy/AdvReac Type Severity Reaction Status Date / Time No Known Allergies Allergy Verified 12/15/18 10:37 Home Medications: Ambulatory Orders Ketorolac Tromethamine [Toradol] 10 mg PO Q6H #28 tablet 12/15/18 Levofloxacin [Levaquin] 500 mg PO DAILY #5 tablet 12/15/18 Anemia: No Asthma: No Cancer: No Cardiac Disorders: No CVA: No COPD: No CHF: No Dementia: No Diabetes: No GI Disorders: No Disorders: No HTN: No Hypercholesterolemia: No Kidney Stones: Yes Liver Disease: No Seizures: No Thyroid Disease: No - Surgical History Cholecystectomy: Yes Neurologic Surgery: No - Suicide/Smoking/Psychosocial Hx Smoking Status: Yes Smoking History: Never smoked Have you smoked in the past 12 months: No Number of Cigarettes Smoked Daily: 0 If you are a former smoker, when did you quit?: 2016 Information on smoking cessation initiated: No 'Breaking Loose' booklet given: 11/07/13 Hx Alcohol Use: No Drug/Substance Use Hx: No Substance Use Type: Alcohol, Marijuana Review of Systems - Review of Systems Able to Perform ROS?: Yes Is the patient limited Divehi proficient: No Constitutional: No: Symptoms Reported HEENTM: No: Symptoms Reported Respiratory: No: Symptoms reported Cardiac (ROS): No: Symptoms Reported ABD/GI: No: Symptoms Reported : No: Symptoms Reported Musculoskeletal: Yes: See HPI Integumentary: No: Symptoms Reported Neurological: No: Symptoms reported All Other Systems: Reviewed and Negative *Physical Exam - Vital Signs Last Vital Signs Temp Pulse Resp BP Pulse Ox 98.2 F 72 18 137/91 97 12/15/18 10:37 12/15/18 10:37 09/02/19 10:37 12/15/18 10:37 12/15/18 10:37 - Physical Exam General Appearance: Yes: Nourished, Appropriately Dressed. No: Apparent Distress HEENT: positive: EOMI, ALVARO, Normal ENT Inspection Respiratory/Chest: positive: Lungs Clear, Normal Breath Sounds. negative: Chest Tender, Respiratory Distress Cardiovascular: positive: Regular Rhythm, Regular Rate, S1, S2 Gastrointestinal/Abdominal: positive: Normal Bowel Sounds, Flat, Soft. negative : Tender Musculoskeletal: positive: CVA Tenderness (left minimal) Extremity: positive: Normal Capillary Refill, Normal Inspection, Normal Range of Motion Integumentary: positive: Other (tinea versicolor over back) Neurologic: positive: Fully Oriented, Alert, Normal Mood/Affect, Normal Response , Motor Strength 08/17 ED Treatment Course - LABORATORY CBC & Chemistry Diagram: 12/15/18 11:00 12/15/18 11:00 - ADDITIONAL ORDERS Additional order review: Laboratory Results 12/15/18 12/15/18 11:00 11:00 Sodium 142 Potassium 4.2 Chloride 104 Carbon Dioxide 27 Anion Gap 11 BUN 12.0 Creatinine 0.9 Est GFR (CKD-EPI)AfAm 132.37 Est GFR (CKD-EPI)NonAf 114.21 Random Glucose 106 Calcium 10.2 H Total Bilirubin 0.7 AST 33 ALT 47 Alkaline Phosphatase 65 D Total Protein 8.8 H Albumin 4.1 Urine Color Yellow Urine Appearance Slightly Urine pH 5.5 Urine Protein 3+ H Urine Glucose (UA) Negative Urine Ketones Negative Urine Blood 3+ H Urine Nitrite Negative Urine Bilirubin Negative Urine Urobilinogen 0.2 Ur Leukocyte Esterase 2+ Urine RBC 80-100 Urine WBC 10-20 Ur Transition Epith Cell Few 12/15/18 11:00 RBC 4.72 MCV 87.7 MCHC 32.7 RDW 12.9 MPV 7.7 Neutrophils % 59.8 Lymphocytes % 33.0 D Monocytes % 4.4 Eosinophils % 2.0 Basophils % 0.8 - RADIOLOGY Radiology Studies Ordered: Category Date Time Status SPIRAL- RENAL-STONE CT [CT] Stat CT Scan 12/15/18 11:08 Taken - Medications Given in the ED: ED Medications Discontinued Medications Generic Name Dose Route Start Last Admin Trade Name Freq PRN Reason Stop Dose Admin Ketorolac Tromethamine 30 mg 12/15/18 11:09 12/15/18 11:14 Toradol Injection - IVPUSH 12/15/18 11:10 30 mg ONCE ONE Administration Medical Decision Making - Medical Decision Making 12/15/18 11:56 28m with left flank pain and extensive urologic history. Will check for signs of infection/UTI/Stones Treating pain with Toradol. UA positive for blood and WBC's Spiral CT read Pending 12/15/18 13:12 CT: Resolution of pyelonephritis since last ct, non-obstructing stone. Ok to send home with abx and toradol and follow up with Urologist Dr. Sepulveda tomorrow morning. *DC/Admit/Observation/Transfer Diagnosis at time of Disposition: Flank pain, UTI (urinary tract infection) - Discharge Dispostion Disposition: HOME Condition at time of disposition: Stable Decision to Admit order: No - Prescriptions Prescriptions: Ketorolac Tromethamine [Toradol] 10 mg PO Q6H #28 tablet Levofloxacin [Levaquin] 500 mg PO DAILY #5 tablet - Referrals Referrals: Neno Sepulveda MD [Staff Physician] - - Patient Instructions Printed Discharge Instructions: Urinary Tract Infection, DI for Ureteral Stent Placement Additional Instructions: Follow up with Dr. Sepulveda tomorrow. Come back to the emergency department for any new, worsening or concerning symptom. - Post Discharge Activity
[2018-12-15 13:22] VITALS: BP 142/98; PULSE 66
== END 2018-12-15 13:26 | disposition home or self-care (01) ==
LOC: FER 10:36
PROC: 3E0233Z Introduction of Anti-inflammatory into Muscle, Percutaneous Approach (ICD-10-PCS; principal; 2018-12-15)
DX: R10.32 Left lower quadrant pain (principal); N39.0 Urinary tract infection, site not specified; Z96.0 Presence of urogenital implants
CPT/HCPCS: 36415; 74176-TC; 80053; 81003; 81015; 85025; 87086; 99282-25

== ENCOUNTER 2018-12-26 10:42 | Day surgery (SDC) | payer OTHER ==
[2018-12-24 18:01] VITALS: BMI 36.9
[2018-12-26] MEDS ORDERED: PROPOFOL 20 ML ONE ×2 (13:02)
[2018-12-26] MEDS ORDERED: DEXAMETHASONE SOD PHOSPHATE 4 MG/1 ML VIAL ONE (13:02)
[2018-12-26] MEDS ORDERED: MIDAZOLAM HCL 2 MG/2 ML SINGLE DOSE VIAL ONE ×2 (13:02)
--- NOTE | 2018-12-26 14:06 | OP ---
Operative Note - Note: Operative Date: 12/26/18 Pre-Operative Diagnosis: L renal calculus Operation: cystoscopy and L JJ stent removal Findings: indwelling L JJ stent Post-Operative Diagnosis: Same as Pre-op Surgeon: Danii Worthy Anesthesia: Fractional Specimens Removed: L JJ stent Estimated Blood Loss (mls): 0 Operative Report Dictated: Yes
--- NOTE | 2018-12-26 14:06 | HP ---
History & Physical Update - History History: No Change - Physical Physical: No Change - Assessment Assessment: No Change - Plan Plan: No Change
[2018-12-26] MEDS ORDERED: oxyCODONE HCL 5 MG TABLET PO PRN (14:21)
[2018-12-26] MEDS ORDERED: ONDANSETRON 4 MG/2 ML VIAL IVPUSH PRN (14:21)
[2018-12-26] MEDS ORDERED: LACTATED RINGERS SOLUTION 1,000 ML IV SCH (14:30)
[2018-12-26] MEDS ORDERED: ceFAZolin SODIUM 1 GM VIAL ONE (14:35)
[2018-12-26] MEDS ORDERED: SODIUM CHLORIDE 0.9% P/F 10 ML VIAL IJ ONE (14:35)
[2018-12-26] MEDS ORDERED: ceFAZolin SODIUM 1 GM VIAL IVPB ONE (14:45)
[2018-12-26] MEDS ORDERED: LIDOCAINE HCL 2% JELLY 10 ML CARTRIDGE ONE (14:47)
[2018-12-26] MEDS ORDERED: METOPROLOL TARTRATE 5 MG/5 ML VIAL ONE (16:10)
[2018-12-26] MEDS ORDERED: oxyCODONE HCL 5 MG TABLET ONE (16:59)
[2018-12-26] MEDS ORDERED: METOPROLOL TARTRATE 5 MG/5 ML VIAL IVPUSH ONE (17:15)
[2018-12-26 18:11] VITALS: BP 149/95; PULSE 89; TEMP 97.9
--- NOTE | 2018-12-26 20:48 | OP ---
DATE OF OPERATION: 12/26/2018 PREOPERATIVE DIAGNOSIS: Left renal calculus. POSTOPERATIVE DIAGNOSIS: Left renal calculus. PROCEDURE: Cystoscopy, left Double J stent removal. SURGEON: Neno Hernández M.D. DEPUTY DIRECTOR OF PUBLIC WORKS: None. ANESTHESIA: IV sedation. ANESTHESIOLOGIST: SPECIMENS: Left double J stent. CULTURES: None. DRAINS: None. ESTIMATED BLOOD LOSS: None. COMPLICATIONS: None. DESCRIPTION OF PROCEDURE: Patient was brought in the operating room, placed on the operating room table in the supine position. After administration of intravenous sedation, intravenous antibiotics were administered. The patient was placed in the dorsal lithotomy position. The genitals and perineum were prepped and draped in usual sterile manner. A 22 [place] cystoscope was inserted into the bladder under direct vision. Anterior and posterior urethra were normal. The bladder was entered, thoroughly inspected. There were no tumors, stones, or inflammation left. Double J stent was in its normal position, was grasped at its tip and removed. Bladder was emptied, cystoscope removed. He tolerated the procedure well. Transferred to recovery room in stable condition. NENO HERNÁNDEZ M.D. [id number]
--- NOTE | 2018-12-30 17:19 | PATH ---
Surgical Pathology Report Patient Name: JOSHUA OSPINA Med. Rec. #: [id number] /Age/Gender: 1990 (Age: 28) / M Account: [id number] Location: [facility] SURGICAL Taken: 12/27/2018 Received: 12/29/2018 Reported: 12/30/2018 Physicians: Neno Sepulveda M.D. Specimen(s) Received LEFT J STENT REMOVAL Clinical History Renal calculi Final Diagnosis LEFT J STENT, REMOVAL: CONSISTENT WITH SEGMENT OF STENT. GROSS EXAMINATION ONLY. Electronically Signed Uma Montero M.D. Gross Description Received in a container, labeled "left J stent" is a segment of plastic tube measuring 33 cm in length and up to 0.2 cm in diameter cm. Gross examination only.
== END 2018-12-26 17:45 | disposition home or self-care (01) ==
LOC: JASU-SURG 10:42
PROVIDERS: ATTEND Urology
PROC: 0TP98DZ Removal of Intraluminal Device from Ureter, Via Natural or Artificial Opening Endoscopic (ICD-10-PCS; principal; 2018-12-26 13:00)
DX: N20.0 Calculus of kidney (principal)
CPT/HCPCS: 88300-TC; 94760

== ENCOUNTER 2019-01-12 11:30 | Emergency (ER) | payer OTHER ==
[2019-01-12 11:37] VITALS: BP 150/114; PULSE 87; TEMP 98.5; BMI 36.9
[2019-01-12] MEDS ORDERED: COLCHICINE 0.6 MG CAP PO ONE (11:43)
[2019-01-12] MEDS ORDERED: predniSONE 20 MG TABLET (UD) PO ONE (11:43)
--- NOTE | 2019-01-12 11:52 | PDOC ---
History of Present Illness - General Chief Complaint: Pain Stated Complaint: RIGHT KNEE, RT FOOT PAIN, SWELLING Time Seen by Provider: 01/12/19 11:32 History Source: Patient, Old Records Exam Limitations: No Limitations - History of Present Illness Initial Comments: 01/12/19 11:53 28-year-old male with history of gout recently noncompliant with allopurinol and colchicine presents now with 2 week history of progressive, atraumatic right knee pain and swelling and onset this morning of separate right foot pain. Patient recalls history of gout attacks occurring in his foot, denies known history of knee flares. Denies any sprain or direct injury, denies any DVT risk factors. Patient has been taking [id number] NSAIDs and CBD with only temporary relief so he presents for evaluation. No fevers or chills, no leg swelling, no cardiopulmonary complaints, no motor or sensory deficit. Patient has been followed by EP/rheumatology in the past, is scheduled to start a new clinic next week. Past History - Past Medical History Allergies/Adverse Reactions: Allergies Allergy/AdvReac Type Severity Reaction Status Date / Time No Known Allergies Allergy Verified 01/12/19 11:32 Home Medications: Ambulatory Orders Colchicine 0.6 mg PO DAILY #5 tablet 01/12/19 Oxycodone HCl/Acetaminophen [Percocet 5-325 mg Tablet] 1 - 2 tab PO Q6H PRN #14 tab MDD 8 tabs 01/12/19 Prednisone [Prednisone 50 MG TABLETS] 50 mg PO DAILY #5 tablet 01/12/19 Anemia: No Asthma: No Cancer: No Cardiac Disorders: No CVA: No COPD: No CHF: No Dementia: No Diabetes: No GI Disorders: No Disorders: Yes (kidney stone) HTN: No Hypercholesterolemia: No Kidney Stones: Yes Liver Disease: No Seizures: No Thyroid Disease: No Other medical history: gout - Surgical History Cholecystectomy: Yes Neurologic Surgery: No - Psycho Social/Smoking Cessation Hx Smoking Status: Yes Smoking History: Never smoked Have you smoked in the past 12 months: No Number of Cigarettes Smoked Daily: 0 If you are a former smoker, when did you quit?: 2016 Information on smoking cessation initiated: No 'Breaking Loose' booklet given: 11/07/13 Hx Alcohol Use: No Drug/Substance Use Hx: No (last 1 month ago) Substance Use Type: Marijuana Review of Systems - Review of Systems Constitutional: No: Chills, Fever Respiratory: No: Shortness of Breath, SOB with Exertion Cardiac (ROS): No: Chest Pain, Palpitations Musculoskeletal: Yes: See HPI, Joint Pain Integumentary: No: Bruising, Rash All Other Systems: Reviewed and Negative *Physical Exam - Vital Signs Last Vital Signs Temp Pulse Resp BP Pulse Ox 98.5 F 87 18 150/114 H 100 01/12/19 11:30 01/12/19 11:30 01/12/19 11:30 01/12/19 11:30 01/12/19 11:30 - Physical Exam Comments: 01/12/19 11:55 Vital signs normal, blood pressure slightly elevated but in mild to moderate distress GENERAL: The patient is awake, alert, and fully oriented, in no acute distress seated in stretcher. Obese. HEAD: Normal with no signs of trauma. EYES: PERRL, EOMI, sclera anicteric, conjunctiva clear. ENT: oropharynx clear. Moist mucous membranes. NECK: Normal range of motion, supple. LUNGS: Breath sounds equal, clear to auscultation bilaterally. No wheeze/ crackles. HEART: Regular rate and rhythm, normal S1 and S2 without murmur or rub. EXTREMITIES: Positive right knee effusion without warmth or erythema or tenderness, Normal range of motion only slightly elevated at extreme flexion, no edema of the calf or calf tenderness. There is subtle dorsal right foot soft tissue swelling with tenderness along the lateral metatarsals but no focal deformity, neurovascularly intact with 2+ distal pulses. No cords, erythema, or tenderness. NEUROLOGICAL: Cranial nerves II through XII grossly intact. Normal speech, slightly antalgic gait favoring right leg. PSYCH: Normal mood, normal affect. SKIN: Warm, Dry, no rashes or lesions noted. Medical Decision Making - Medical Decision Making 01/12/19 11:57 28-year-old male with history of gout presents with atraumatic right knee and now right foot swelling without history of injury or evidence of vascular involvement, likely exacerbation of gout in the setting of noncompliance with medications. No evidence of infectious or septic joint, otherwise well- appearing. Prior imaging has been negative for acute bony abnormalities, a right knee x- ray and 2017 confirmed an effusion, patient recalls having a similar exacerbation at that time. We'll treat with colchicine and prednisone, Percocet as needed for pain Patient has upcoming new clinic appointment where he can be restarted on his maintenance medications at bedside, will accompany home, they understand return criteria. Discharge - Discharge Information Problems reviewed: Yes Clinical Impression/Diagnosis: Gout Qualifiers: Gout site: knee Gout etiology: unspecified cause Chronicity: acute Laterality: right Qualified Code(s): M10.9 - Gout, unspecified Condition: Improved - Additional Discharge Information Prescriptions: Colchicine 0.6 mg PO DAILY #5 tablet Oxycodone HCl/Acetaminophen [Percocet 5-325 mg Tablet] 1 - 2 tab PO Q6H PRN #14 tab MDD 8 tabs PRN Reason: Pain Prednisone [Prednisone 50 MG TABLETS] 50 mg PO DAILY #5 tablet Prescription Drug Monitoring Program (I-STOP) results: I-STOP not reviewed (not indicated) - Follow up/Referral Referrals: Jeremiah Pike MD [Staff Physician] - - Patient Discharge Instructions Patient Printed Discharge Instructions: DI for Gout Additional Instructions: Activity as tolerated. Stay hydrated. The pain and swelling in your knee and foot are likely due to a gout flare. Take colchicine 0.6 mg daily, starting with a pill one hour from now. Take prednisone daily as prescribed for 5 days. Take Percocet as prescribed as needed for the next couple of days. Percocet can make you lightheaded, so take proper precautions. Ice and elevate the affected areas for 20 minutes every 3-4 hours to reduce swelling. Continue your medications as previously prescribed by your physician. You should follow up with your new primary doctor as scheduled regarding today' s emergency department visit. You should be restarted on your maintenance medications to avoid exacerbations. Consider seeing Dr. Pike, a professor of archaeology. Return to the emergency department for any new or concerning symptoms, particularly persistent or worsening pain or swelling, fever/chills, discoloration, numbness/weakness. - Post Discharge Activity
[2019-01-12] MEDS ORDERED: COLCHICINE 0.6 MG CAP ONE ×2 (11:59→12:03)
[2019-01-12] MEDS ORDERED: predniSONE 20 MG TABLET (UD) ONE (11:59)
== END 2019-01-12 12:10 | disposition home or self-care (01) ==
LOC: FER 11:30
DX: M10.9 Gout, unspecified (principal); Z87.891 Personal history of nicotine dependence; N20.0 Calculus of kidney
CPT/HCPCS: 99283-25

== ENCOUNTER 2019-01-22 09:02 | Emergency (ER) | payer OTHER ==
[2019-01-22 09:08] VITALS: BP 151/101; PULSE 79; TEMP 98.3; BMI 38.4
[2019-01-22] MEDS ORDERED: TRIAMCINOLONE ACET 40MG/1ML VIAL IJ ONE (10:15)
[2019-01-22] MEDS ORDERED: BUPIVACAINE HCL 0.5% 250 MG/50 ML VIAL IJ ONE (10:15)
--- NOTE | 2019-01-22 10:15 | PDOC ---
History of Present Illness - General Chief Complaint: Pain Stated Complaint: RIGHT LEG/KNEE PAIN Time Seen by Provider: 01/22/19 09:04 Past History - Past Medical History Allergies/Adverse Reactions: Allergies Allergy/AdvReac Type Severity Reaction Status Date / Time No Known Allergies Allergy Verified 01/22/19 09:03 Home Medications: Ambulatory Orders Diclofenac Potassium 50 mg PO QID PRN #28 tablet 01/22/19 Anemia: No Asthma: No Cancer: No Cardiac Disorders: No CVA: No COPD: No CHF: No Dementia: No Diabetes: No GI Disorders: No Disorders: Yes (kidney stone) HTN: No Hypercholesterolemia: No Kidney Stones: Yes Liver Disease: No Seizures: No Thyroid Disease: No - Surgical History Cholecystectomy: Yes Neurologic Surgery: No - Psycho Social/Smoking Cessation Hx Smoking Status: Yes Smoking History: Never smoked Have you smoked in the past 12 months: No Number of Cigarettes Smoked Daily: 0 If you are a former smoker, when did you quit?: 2016 Information on smoking cessation initiated: No 'Breaking Loose' booklet given: 11/07/13 Hx Alcohol Use: No Drug/Substance Use Hx: No (last 1 month ago) Substance Use Type: Marijuana *Physical Exam - Vital Signs Last Vital Signs Temp Pulse Resp BP Pulse Ox 98.3 F 79 18 151/101 H 98 01/22/19 09:02 01/22/19 09:02 01/22/19 09:02 01/22/19 09:02 01/22/19 09:02 Procedures - Arthrocentesis Indication: Crystals (Gout/Psuedogout, Inflammation, Reduce Pain, Steriod Injection Arthrocentesis Site: right: knee Flexion: 20-30 degree Betadine Prep: Yes Sterile Dressing Applied: Yes (bacitracin, gauze, and wrap) Fluid Color: Yellow Fluid Amount mL: 15 (50 mL drained; 15cc 0.5%marcaine and steroids injected) Anesthesia: 2% Lidocaine Needle Size (guage): 18g Complications: No (patient tolerated joint tap well. sterile prep and local anesthesia used.) Medical Decision Making - Medical Decision Making 01/22/19 11:02 HPI: 28M PMH Gout presenting w/ right knee pain and swelling since 12/21. Denies trauma. Patient has tried multiple pain medications w/o relief. Was seen in ED for gout flare up and dc'd w/ prednisone and colchicine which helped the pain while he was on it. Swelling did not resolve. Endorses occasional numbness and tingling of the RLE. Denies f/c, n/v, chest pain, sob. Patient states he has a PMD appt re: gout in next week. ROS: CONSTITUTIONAL: Denies F / C RESP: Denies SOB CARD: Denies chest pain GI: Denies N / V / D, abdominal pain : Denies dysuria, frequency NEURO: see HPI PE: GEN: AAOx3, NAD HEENT: NC/AT. No facial asymmetry. Normal voice. Supple neck w/ FROM. CV: S1/S2, RRR, no m/r/g LUNG: CTAB, no wheezes, crackles, rales, rhonchi. GI: soft, ndnt, +BS, no guarding, no rebound. No masses. EXTREMITIES: Right knee: + effusion; neg erythema, neg warmth. FROM actively of b/l LE with slightly decreased active ROM at the right knee. No right knee joint laxity w/ posterior/anterior drawer and varus/valgus testing. Ambulatory but difficult 2/2 pain. There is TTP of the lateral aspect of the right knee. No calf tenderness. No leg swelling. SKIN: warm, dry, normal turgor PSYCH: slightly anxious, cooperative, normal speech NEURO: Moving all extremities, sensation equal and intact. MDM: 28M PMH gout presenting w/ right knee pain and effusion. Knee effusion and pain Likely 2/2 gout. Unlikely septic. Atraumatic. - offered knee arthrocentesis A diagnostic and therapeutic arthrocentesis performed on the right knee drained 50cc yellow fluid which has been sent to lab. 15cc of anesthetic and steroids injected into joint space. see procedure note. Patient discharged home w/ PCP and ortho f/u, and diclofenac. Discharge - Discharge Information Problems reviewed: Yes Clinical Impression/Diagnosis: Knee effusion, right Condition: Stable Disposition: HOME - Additional Discharge Information Prescriptions: Diclofenac Potassium 50 mg PO QID PRN #28 tablet PRN Reason: Pain - Follow up/Referral - Patient Discharge Instructions Patient Printed Discharge Instructions: DI for Knee Effusion Additional Instructions: You were seen and treated in the Emergency Department. Please follow up with your Primary Care Doctor in the next 7 days regarding this ED visit and your concerns. Please follow up with an Orthopedic Surgeon in the next 7 days regarding your ED visit and your concerns. See the attached paperwork regarding our referral to Dr. Mancilla. We sent a prescription to your pharmacy, please pick it up and take as prescribed. IMMEDIATELY return to the ED if you experience any of the following: - high fever - warm, swollen, and/or redness of the knee or other joints - severe pain in the knee or other joints - ANYTHING that concerns you - Post Discharge Activity
[2019-01-22] MEDS ORDERED: LIDOCAINE HCL 1%, 10 MG/ML (20ML VIAL) ONE (10:33)
--- NOTE | 2019-01-22 11:12 | PDOC ---
Attending Attestation - Resident Resident Name: HarveyRoberto - ED Attending Attestation I have performed the following: I have examined & evaluated the patient, The case was reviewed & discussed with the resident, I agree w/resident's findings & plan, Exceptions are as noted - HPI HPI: 01/22/19 11:12 Patient with recurrent gout complains of swelling and pain in the right knee for several weeks, now impeding his ability to ambulate. No known etiology for the gout, no prophylactic medication has been tried, has been treating flareups with colchicine and steroids. No fever/chills or other systemic signs of infection. No known medical or surgical problems at present, other than moderate obesity. - Physicial Exam PE: 01/22/19 11:13 Physical exam: Afebrile, vital signs normal Alert oriented cheerful and cooperative but in considerable pain with weightbearing and ambulation No pain at rest Right knee shows a massive effusion, but no erythema or warmth. There is no stress tenderness or laxity of the MCL or LCL. Iliana is negative, but reliability is uncertain considering the amount of effusion. There is been no trauma. Patella patellar retinaculum are intact and nontender. Distal pulses full. No distal sensory or motor deficits. No swelling or edema of the calf ankle or foot. - Medical Decision Making 01/22/19 11:08 Assessment: Knee pain, difficulty ambulating, secondary to large joint effusion , presumably from gout. Plan: Diagnostic and therapeutic arthrocentesis. Procedure note: Joint aspiration and injection The right knee joint was prepped sterilely and draped 1% lidocaine local anesthesia was implemented with good effect, infiltrating the skin and deeper structures of the medial knee. An 18-gauge needle was used to aspirate the large effusion. It was inserted near the medial upper patellar border and easily passed into the joint space with the evacuation of 60 cc of turbid yellow fluid. Bupivacaine and Kenalog were injected after complete joint evacuation, the needle was removed, bacitracin was applied to the wound, sterile gauze and Michael for compression were applied. The patient was ambulating well, pain markedly improved, and referred to orthopedist for follow-up. Specimen sent for crystals, Gram stain, cell count and differential, protein, glucose, LDH.
[2019-01-22] MEDS ORDERED: LIDOCAINE HCL 1%, 10 MG/ML (50 mL VIAL) SQ ONE (11:35)
[2019-01-22 14:17] LABS: SYNOVIAL FLUID RBC 1013 /mm3; SYNOVIAL FLUID SOURCE SYNOVIAL FLUID
[2019-01-22 15:17] LABS: SYNOVIAL FLUID LYMPHOCYTES 7 %; SYNOVIAL FLUID MONOCYTES 15 %; SYNOVIAL FLUID NEUTROPHILS 78 %
== END 2019-01-22 11:40 | disposition home or self-care (01) ==
LOC: FER 09:02
PROC: 0S9C3ZZ Drainage of Right Knee Joint, Percutaneous Approach (ICD-10-PCS; principal; 2019-01-22)
DX: M25.461 Effusion, right knee (principal); M25.561 Pain in right knee; R26.2 Difficulty in walking, not elsewhere classified; Z87.442 Personal history of urinary calculi; M10.9 Gout, unspecified
CPT/HCPCS: 36415; 82042; 82945; 83615; 83986; 84157; 87070; 87075; 87205; 89051; 89060; 99283-25

== ENCOUNTER 2019-03-03 04:46 | Day surgery (SDC) | payer OTHER ==
[2019-03-02 10:36] VITALS: BMI 36.3
[2019-03-03] MEDS ORDERED: MIDAZOLAM HCL 2 MG/2 ML SINGLE DOSE VIAL ONE ×2 (07:40→07:57)
[2019-03-03] MEDS ORDERED: PROPOFOL 20 ML ONE ×3 (07:40)
[2019-03-03] MEDS ORDERED: SUCCINYLCHOLINE CHLORIDE 200 MG/10 ML SYRINGE ONE (07:41)
--- NOTE | 2019-03-03 07:45 | OP ---
Operative Note - Note: Operative Date: 03/03/19 Pre-Operative Diagnosis: L renal calculus Operation: ESWL L Findings: 4 mm radiolucent L LP renal calculus Post-Operative Diagnosis: Same as Pre-op Surgeon: Neno Sepulveda Anesthesiologist/WEB APPLICATIONS ARCHITECT: Rain Couch Anesthesia: Fractional Estimated Blood Loss (mls): 0 Operative Report Dictated: Yes
[2019-03-03 08:43] VITALS: PULSE 80; TEMP 97.5
[2019-03-03 09:53] VITALS: BP 133/88
--- NOTE | 2019-03-03 10:18 | OP ---
DATE OF OPERATION: 03/03/2019 PREOPERATIVE DIAGNOSIS: Left renal calculus. POSTOPERATIVE DIAGNOSIS: Left renal calculus. PROCEDURE: Extracorporeal shock-wave lithotripsy. SURGEON: Neno Hernández MD BAND SAW RUNNER: None. ANESTHESIA: IV sedation. ANESTHESIOLOGIST: WATSON Moralez SPECIMENS: None. CULTURES: None. DRAINS: None. ESTIMATED BLOOD LOSS: None. COMPLICATIONS: None. DESCRIPTION OF PROCEDURE: Patient was brought into the operating room and placed on the operating room table in a supine position. After administration of intravenous sedation, patient was positioned over the treatment head, and under ultrasound guidance, left renal calculus could not be visualized. Now under ultrasound guidance, approximately 4- to 5-mm left lower pole renal calculus was identified, targeted, and delivered 2500 shocks at maximum kilovoltage with excellent fragmentation. He tolerated the procedure well, transferred to the recovery room in stable condition. NENO HERNÁNDEZ M.D. [id number]
[2019-03-03] MEDS ORDERED: ONDANSETRON 4 MG/2 ML VIAL IVPUSH PRN (12:09)
[2019-03-03] MEDS ORDERED: oxyCODONE HCL 5 MG TABLET PO PRN (12:09)
[2019-03-03] MEDS ORDERED: LACTATED RINGERS SOLUTION 1,000 ML IV SCH (12:15)
== END 2019-03-03 10:29 | disposition home or self-care (01) ==
LOC: JASU-SURG 04:46
PROVIDERS: ATTEND Urology
PROC: 0TF4XZZ Fragmentation in Left Kidney Pelvis, External Approach (ICD-10-PCS; principal; 2019-03-03 08:45)
DX: N20.0 Calculus of kidney (principal)

== ENCOUNTER 2019-03-25 00:03 | Emergency (ER) | payer OTHER ==
[2019-03-25 00:09] VITALS: BP 156/103; PULSE 55; TEMP 98.2; BMI 36.3
[2019-03-25] MEDS ORDERED: KETOROLAC TROMETHAMINE 60 MG/2 ML VIAL ONE (00:10)
[2019-03-25] MEDS ORDERED: KETOROLAC TROMETHAMINE 60 MG/2 ML VIAL IM ONE (00:13)
--- NOTE | 2019-03-25 00:13 | PDOC ---
History of Present Illness - General Chief Complaint: Pain, Acute Stated Complaint: RIGHT WRIST PAIN TODAY Time Seen by Provider: 03/25/19 00:05 History Source: Patient Exam Limitations: No Limitations - History of Present Illness Initial Comments: 03/25/19 00:08 This is a 28-year-old male who comes in complaining of right wrist pain. Patient said he has had the pain x1 day. Patient said pain is so bad that he came in for evaluation. Patient denies any trauma. Patient denies any fevers or chills patient denies any history of similar pain in the past. Allergies: as per nursing notes Past Medical History: none Social history: Lives with family. No smoking. No alcohol. No illicit drugs. Surgical history: None General: No fevers or chills, no weakness, no weight loss HEENT: No change in vision. No sore throat,. No ear pain CardioVascular: no chest discomfort. No shortness of breath Respiratory:No cough, or wheezing. Gastrointestinal: no nausea, vomiting, diarrhea or constipation, No rectal bleeding Genitourinary: No dysuria, hematuria, or frequency Musculoskeletal: No joint or muscle pain or swelling Neurologic: No headache, vertigo, dizziness or loss of consciousness Psychiatric: nor depression Skin: No rashes or easy bruising Endocrine: no increased thirst or abnormal weight change Allergic: no skin or latex allergy All other systems reviewed and normal GENERAL: The patient is awake, alert, and fully oriented, in no acute distress. HEAD: Normal with no signs of trauma. EYES: Pupils equal, round and reactive to light, extraocular movements intact, sclera anicteric, conjunctiva clear. EXTREMITIES:atraumatic, Normal range of motion, no edema Right wrist there is no swelling, ecchymosis, increase in warmth, erythema. There is some tenderness on palpation over the radial wrist area diffusely. There is decreased range of motion secondary to pain. Neurovascular is intact. NEUROLOGICAL: Normal speech, normal gait. PSYCH: Normal mood, normal affect. SKIN: Warm, Dry, normal turgor, no rashes or lesions noted. This is a 28-year-old male who comes in complaining of right wrist pain. There is no history of trauma and Other complaints. Patient has taken a Tylenol and oxycodone without relief. Patient given Toradol here told to follow-up with the orthopedist. Patient discharged Past History - Past Medical History Allergies/Adverse Reactions: Allergies Allergy/AdvReac Type Severity Reaction Status Date / Time No Known Allergies Allergy Verified 03/25/19 00:05 Home Medications: Ambulatory Orders Allopurinol [Zyloprim -] 100 mg PO DAILY 03/02/19 Levothyroxine [Synthroid -] 75 mcg PO DAILY 03/02/19 Oxycodone HCl/Acetaminophen [Percocet 5-325 mg Tablet] 1 - 2 tab PO Q4H PRN #40 tablet MDD 8 03/03/19 Anemia: No Asthma: No Cancer: No Cardiac Disorders: No CVA: No COPD: No CHF: No Dementia: No Diabetes: No GI Disorders: No Disorders: Yes (kidney stone) HTN: No Hypercholesterolemia: No Kidney Stones: Yes Liver Disease: No Seizures: No Thyroid Disease: Yes - Surgical History Cholecystectomy: Yes Neurologic Surgery: No - Psycho Social/Smoking Cessation Hx Smoking Status: Yes Smoking History: Never smoked Have you smoked in the past 12 months: No Number of Cigarettes Smoked Daily: 0 If you are a former smoker, when did you quit?: 2015 'Breaking Loose' booklet given: 11/07/13 Hx Alcohol Use: No Drug/Substance Use Hx: Yes (occ) Substance Use Type: Marijuana Hx Substance Use Treatment: No Discharge - Discharge Information Problems reviewed: No Clinical Impression/Diagnosis: Wrist pain, right Condition: Stable Disposition: HOME - Admission No - Follow up/Referral Referrals: Rebel Camara MD [Primary Care Provider] - Moe Mancilla MD [Staff Physician] - - Patient Discharge Instructions Additional Instructions: Return to the emergency department immediately with ANY new, persistent or worsening symptoms. Continue any medications as previously prescribed by your physician. You should follow up with the orthopedist doctor as soon as possible regarding today's emergency department visit. . Please make sure your doctor reviews the results of your emergency evaluation. Thank you for coming to the Emergency Department today for your care. It was a pleasure to see you today. Please note that your evaluation is INCOMPLETE until you follow-up with your doctor. - Post Discharge Activity
== END 2019-03-25 00:17 | disposition home or self-care (01) ==
LOC: FER 00:03
PROC: 3E0233Z Introduction of Anti-inflammatory into Muscle, Percutaneous Approach (ICD-10-PCS; principal; 2019-03-25)
DX: M25.531 Pain in right wrist (principal); E07.9 Disorder of thyroid, unspecified; N20.0 Calculus of kidney; Z87.891 Personal history of nicotine dependence
CPT/HCPCS: 99281-25

== ENCOUNTER 2019-03-31 13:46 | Emergency (ER) | payer OTHER ==
[2019-03-31 14:02] VITALS: BP 156/98; PULSE 77; TEMP 98.1; BMI 36.4
--- NOTE | 2019-03-31 14:25 | PDOC ---
Attending Attestation - Resident Resident Name: Justin Garza - ED Attending Attestation I have performed the following: I have examined & evaluated the patient, The case was reviewed & discussed with the resident, I agree w/resident's findings & plan, Exceptions are as noted - HPI HPI: 03/31/19 15:06 28y M no known pmhx presents with complaint of atraumatic R wrist pain. Pt notes he first developed R wrist pain approx 1 week ago. The patient notes the pain was onitially on the ulnar aspect of the R wrist, but has since migrated to the radial side and is worse with movement and improvement with keeping the wrist still. pt denies any recent heavy lifting, falls/trauma/accidents, pt notse some tingling on his finger tip. never had this probablem before. Pt denies any fever/chills neck pain. no other extremity pain. exam: Neck: atraumatic, no focal mdiline cervical tendeness ext: normal ROM of R shoulder/elbow. +tenderness to wrist, no focal bony tenderness. normal range of his thumb. 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 sensation slightyl deminished along R median nerve distribution distal to R wrist. pulses symmetric ddx - consider median nerve compression vs tendonitis no neck pain or signs of proximal recomended xray however pt states he defers for now as there was no trauma. will give nsaids pt placed in a volar splint will have pt fu with ortho, supportive are at home return precautions were discussed - Physicial Exam PE: 04/01/19 12:02 see above - Medical Decision Making 04/01/19 12:02 see above
--- NOTE | 2019-03-31 14:54 | PDOC ---
History of Present Illness - General Chief Complaint: Pain Stated Complaint: RIGHT WRIST PAIN Time Seen by Provider: 03/31/19 13:58 - History of Present Illness Initial Comments: 03/31/19 15:08 HPI: 28 y/o M with hx of hypothyroid, gout, kidney stones presenting with right wrist pain. He initially presented for similar pain last week and was DCd home after toradol with PCP followup. He states pain improved initially and he was attempting to increase ROM and strengthen it however it started to worsen again. Pain is along distal half of the forearm along the radius with radiation into the hand and 1st-3rd digits. Pain is throbbing at baseline with intermittent sharp pains. He states the pain woke him up in the middle of the night and he required pain meds. He attempted tylenol and motrin but had minimal relief. He reports decrreased ROM and feeling weak. Pain is worse with motion. He also reports numbness in the 1-3rd fingers and decreased sensation. Patient denies fever, chills, chest pain, SOB, abd pain, n/v, erythema, drainage. Denies trauma or any other inciting events; no repetitive motions PMHx: as noted above ROS: as noted SHx: Denies tobacco use; occasional alcohol use; no rec drugs Allergies: NKDA ROS: GENERAL/CONSTITUTIONAL: No fever or chills. No weakness. HEAD, EYES, EARS, NOSE AND THROAT: No change in vision. No ear pain or discharge. No sore throat. CARDIOVASCULAR: No chest pain or shortness of breath RESPIRATORY: No cough, wheezing, or hemoptysis. GASTROINTESTINAL: No nausea, vomiting, diarrhea or constipation. GENITOURINARY: No dysuria, frequency, or change in urination. MUSCULOSKELETAL: +right wrist pain SKIN: No rash NEUROLOGIC: No headache, vertigo, loss of consciousness, or change in strength/ sensation. ENDOCRINE: No increased thirst. No abnormal weight change HEMATOLOGIC/LYMPHATIC: No anemia, easy bleeding, or history of blood clots. ALLERGIC/IMMUNOLOGIC: No hives or skin allergy. PE: GENERAL: Awake, alert, and fully oriented, no acute distress HEAD: No signs of trauma, normocephalic, atraumatic EYES: EOMI, sclera anicteric, conjunctiva clear ENT: Auricles normal inspection, hearing grossly normal, nares patent, oropharynx clear without exudates. Moist mucosa NECK: Normal ROM, no lymphadenopathy LUNGS: No increased work of breathing, symmetrical chest rise, clear to auscultation bilaterally, no wheezes, crackles or rhonchi HEART: Regular rate and rhythm, normal S1 and S2, no murmurs, peripheral pulses 2+ and equal bilaterally. ABDOMEN: Soft, nondistended, nontender, normoactive bowel sounds. No guarding, no rebound. No masses. No CVAT MUSCULOSKELETAL: Normal inspection, +phalens right wrist, +tinels, ttp over distal radius at wrist junction, pain on supination and pronation of wrist, decreased to pinprick over median nerve distribution NEUROLOGICAL: Cranial nerves II through XII grossly intact. Normal speech, normal gait, no focal sensorimotor deficits SKIN: Warm, Dry, normal turgor, no rashes or lesions noted Past History - Past Medical History Allergies/Adverse Reactions: Allergies Allergy/AdvReac Type Severity Reaction Status Date / Time No Known Allergies Allergy Verified 03/31/19 13:48 Home Medications: Ambulatory Orders Allopurinol [Zyloprim -] 100 mg PO DAILY 03/02/19 Levothyroxine [Synthroid -] 75 mcg PO DAILY 03/02/19 Oxycodone HCl/Acetaminophen [Percocet 5-325 mg Tablet] 1 - 2 tab PO Q4H PRN #40 tablet MDD 8 03/03/19 Anemia: No Asthma: No Cancer: No Cardiac Disorders: No CVA: No COPD: No CHF: No Dementia: No Diabetes: No GI Disorders: No Disorders: Yes (kidney stone) HTN: No Hypercholesterolemia: No Kidney Stones: Yes Liver Disease: No Seizures: No Thyroid Disease: Yes - Surgical History Cholecystectomy: Yes Neurologic Surgery: No - Psycho Social/Smoking Cessation Hx Smoking Status: Yes Smoking History: Never smoked Have you smoked in the past 12 months: No Number of Cigarettes Smoked Daily: 0 If you are a former smoker, when did you quit?: 2016 Information on smoking cessation initiated: No 'Breaking Loose' booklet given: 11/07/13 Hx Alcohol Use: No Drug/Substance Use Hx: No Substance Use Type: Marijuana Hx Substance Use Treatment: No *Physical Exam - Vital Signs Last Vital Signs Temp Pulse Resp BP Pulse Ox 98.1 F 77 16 156/98 99 03/31/19 13:48 03/31/19 13:48 03/31/19 13:48 03/31/19 13:48 03/31/19 13:48 Medical Decision Making - Medical Decision Making 03/31/19 15:33 28 y/o M with hx of hypothyroid, gout, kidney stones presenting with right wrist pain. VSS, AF. PE with decreased to pinprick over median distribution, ttp over distal radius, pain on PROM, no erythema -toradol -patient does not want XR -will apply volar splint and DC with 600mg motrin every 6hrs for pain control and followup with ortho -patient agreeable with plan and has no additional questions Discharge - Discharge Information Problems reviewed: Yes Clinical Impression/Diagnosis: Wrist pain Qualifiers: Laterality: right Qualified Code(s): M25.531 - Pain in right wrist Condition: Stable Disposition: HOME - Follow up/Referral Referrals: Hamilton Luna MD [Staff Physician] - Moe Mancilla MD [Staff Physician] - - Patient Discharge Instructions Patient Printed Discharge Instructions: DI for Wrist Pain Additional Instructions: Additional Instructions: Please return to the emergency department with any new or worsening symptoms or concerns. Please follow up with your primary care physician when possible. Please followup with an orthopedist if pain does no improve. I have attached referral information for Dr Luna and Dr Mancilla Please take motrin 400-60mg every 6 hours for 3-4days and then as needed afterwards for pain control and anti-inflammatory effects We have supplied a splint and you may keep it on for comfort and relief. You may loosen it as needed if there is worse pain or tingling in the fingers or cold fingertips to prevent loss of circulation - Post Discharge Activity
[2019-03-31] MEDS ORDERED: KETOROLAC TROMETHAMINE 60 MG/2 ML VIAL IM ONE (15:06)
[2019-03-31] MEDS ORDERED: KETOROLAC TROMETHAMINE 60 MG/2 ML VIAL ONE (15:14)
== END 2019-03-31 15:24 | disposition home or self-care (01) ==
LOC: FER 13:46
PROC: 2W3CX1Z Immobilization of Right Lower Arm using Splint (ICD-10-PCS; principal; 2019-03-31)
PROC: 3E0233Z Introduction of Anti-inflammatory into Muscle, Percutaneous Approach (ICD-10-PCS; 2019-03-31)
DX: M25.531 Pain in right wrist (principal); E03.9 Hypothyroidism, unspecified; M10.9 Gout, unspecified; N20.0 Calculus of kidney; Z87.891 Personal history of nicotine dependence
CPT/HCPCS: 99282-25

== ENCOUNTER 2020-01-11 13:00 | Emergency (ER) | payer OTHER ==
[2020-01-11 13:20] VITALS: BP 154/89; PULSE 76; TEMP 97.8; BMI 36.9
[2020-01-11] MEDS ORDERED: KETOROLAC TROMETHAMINE 60 MG/2 ML VIAL IM ONE (14:21)
[2020-01-11] MEDS ORDERED: CYCLOBENZAPRINE HCL 10 MG TABLET (FP) PO ONE (14:21)
--- NOTE | 2020-01-11 14:21 | PDOC ---
History of Present Illness - General Chief Complaint: Back Pain Stated Complaint: RIGHT BACK PAIN Time Seen by Provider: 01/11/20 13:29 History Source: Patient Exam Limitations: No Limitations - History of Present Illness Initial Comments: 01/11/20 14:56 29y M no pmhx presents wit approx 6 days of RLE pain. Pain started gradually, and has been wrsening in the R buttock/lwoer back with radationg/tingling down his R leg, it is worse when he is bent/sitting and improves when laying flat. denies any fever/chills, n/v, weakness, numbness. no urinary or bowel incontinece. no hx of IVDU. denies cp, sob, abd pain, ROS: Constitutional - no reported Fever, Chills, Cardiac: no reported chest pain, palpitations, light headedness, leg swelling Abd/GI: no reported abd pain, nausea, vomiting, : no reported urinary incontinence Musculskelatal - + back pain, no reported joint swelling neurological: +tingling down RLE no reported headache, numbness, focal weakness, ataxia, hematologic: no reported easy bruising, easy bleeding Exam: GENERAL: The patient is awake, alert, and fully oriented, Nontoxic - in no acute distress. HEAD: Normocephalic, atraumatic. EYES: extraocular movements intact, sclera anicteric, conjunctiva clear. ENT: Normal voice, Moist mucous membranes. NECK: Normal range of motion, supple LUNGS: Breath sounds equal, clear to auscultation bilaterally. No wheezes, no rhonchi, no rales. HEART: Regular rate and rhythm, normal S1 and S2 without murmur, rub or gallop. ABDOMEN: Soft, nontender, No guarding, no rebound. No CVA tenderness EXTREMITIES: Normal range of motion, no edema. +SLR, BACK: No focal bony tenderness in the cervical/thoracic/lumbar spine, mild tenderness in deepika L glutuus cecy NEUROLOGICAL: No facial assymetry, Normal speech, moving all 4 ext spontaneously and symmetrically PSYCH: Normal mood, normal affect. SKIN: Warm, Dry, normal turgor, suspect radiculopathy/sciatica no red flags/neuro deficits will treat with toradol/flexril willr eassess Past History - Medical History Allergies/Adverse Reactions: Allergies Allergy/AdvReac Type Severity Reaction Status Date / Time No Known Allergies Allergy Verified 01/11/20 13:03 Home Medications: Ambulatory Orders Allopurinol [Zyloprim -] 100 mg PO DAILY 03/02/19 Levothyroxine [Synthroid -] 75 mcg PO DAILY 03/02/19 Cyclobenzaprine HCl [Flexeril 10 mg] 10 mg PO BID PRN #20 tablet 01/11/20 Anemia: No Asthma: No Cancer: No Cardiac Disorders: No CVA: No COPD: No CHF: No Dementia: No Diabetes: No GI Disorders: No Disorders: Yes (kidney stone) HTN: No Hypercholesterolemia: No Kidney Stones: Yes Liver Disease: No Seizures: No Thyroid Disease: Yes Other medical history: GOUT - Surgical History Cholecystectomy: Yes Neurologic Surgery: No - Psycho-Social/Smoking History Smoking Status: Yes Smoking History: Never smoked Have you smoked in the past 12 months: No Number of Cigarettes Smoked Daily: 0 If you are a former smoker, when did you quit?: 2016 Information on smoking cessation initiated: No 'Breaking Loose' booklet given: 11/07/13 - Substance Abuse Hx (Audit-C & DAST Scrn) How often the patient has a drink containing alcohol: Never Score: In Men: 4 or > Positive; In Women: 3 or > Positive: 0 Screen Result (Pos requires Nsg. Audit-10AR): Negative In the last yr the pt used illegal drug/Rx for NonMed reason: No Score: Yes response is considered Positive: 0 Screen Result (Positive result requires Nsg. DAST-10): Negative *Physical Exam - Vital Signs Last Vital Signs Temp Pulse Resp BP Pulse Ox 97.8 F 76 16 154/89 97 01/11/20 13:00 01/11/20 13:00 01/11/20 13:00 01/11/20 13:00 01/11/20 13:00 Medical Decision Making - Medical Decision Making 01/11/20 15:30 Improved will discharge patient with outpatient follow-up Return precautions were discussed Discharge - Discharge Information Problems reviewed: Yes Clinical Impression/Diagnosis: Sciatica, right side Condition: Improved Disposition: HOME - Admission No - Additional Discharge Information Prescriptions: Cyclobenzaprine HCl [Flexeril 10 mg] 10 mg PO BID PRN #20 tablet PRN Reason: Back Pain - Follow up/Referral [place] [facility] [place] [facility] [place] Group] - Patient Discharge Instructions Patient Printed Discharge Instructions: DI for Back Strain or Sprain Additional Instructions: Return to the emergency department immediately with ANY new, persistent or worsening symptoms including numbness, tingling, weakness, fevers or any other concerns. Take ibuprofen (400mg)/tylenol(650mg) every 6 hours for 2 days. Take the flexeril twice daily if you still have pain/discomfort. Caution in using flexeril as it may make you sleepy. Do not drive or put yourself in any position where you would be in danger. Apply heat to your sore muscles. You MUST call and follow up with your doctor tomorrow for further evaluation of your symptoms. Your emergency department visit is not complete without a followup with your doctor for reevaluation.. Results were discussed with you. Please make sure your doctor reviews the results of your emergency evaluation. - Post Discharge Activity Work/Back to School Note: Back to Work
[2020-01-11] MEDS ORDERED: KETOROLAC TROMETHAMINE 60 MG/2 ML VIAL ONE (14:24)
[2020-01-11] MEDS ORDERED: CYCLOBENZAPRINE HCL 10 MG TABLET (FP) ONE (14:24)
== END 2020-01-11 15:45 | disposition home or self-care (01) ==
LOC: FER 13:00
PROC: 3E0233Z Introduction of Anti-inflammatory into Muscle, Percutaneous Approach (ICD-10-PCS; principal; 2020-01-11)
DX: M54.31 Sciatica, right side (principal)
CPT/HCPCS: 96372; 99284-25

== ENCOUNTER 2020-03-27 23:02 | Emergency (ER) | payer OTHER ==
[2020-03-27] MEDS ORDERED: SODIUM CHLORIDE 1,000 ML IV ONE (23:06)
[2020-03-27] MEDS ORDERED: ONDANSETRON 4 MG/2 ML VIAL IVPUSH ONE (23:06)
[2020-03-27] MEDS ORDERED: KETOROLAC TROMETHAMINE 30 MG/1 ML VIAL IVPUSH ONE (23:06)
[2020-03-27] MEDS ORDERED: KETOROLAC TROMETHAMINE 30 MG/1 ML VIAL ONE (23:10)
[2020-03-27] MEDS ORDERED: ONDANSETRON 4 MG/2 ML VIAL ONE (23:10)
[2020-03-27] MEDS ORDERED: morphine CARPU-JECT 2 MG/1 ML DISP.SYRIN IVPUSH ONE (23:11)
[2020-03-27] MEDS ORDERED: morphine SULFATE 4 MG/ML VIAL ONE (23:15)
[2020-03-27 23:22] LABS: BASO % 0.9 % (0-2.0); EOS % 1.5 % (0-4.5); HEMATOCRIT 49.5 % (35.4-49); HEMOGLOBIN 16.1 GM/dl (11.7-16.9); LYMPH % 25.7 % (8-40); MCH 29.5 pg (25.7-33.7); MCHC 32.6 g/dl (32.0-35.9); MEAN CELL VOLUME 90.6 fl (80-96); MEAN PLT VOLUME 8.6 fl (7.5-11.1); MONO % 8.8 % (3.8-10.2); NEUT % 63.1 % (42.8-82.8); PLATELET COUNT 317 K/MM3 (134-434); RBC 5.47 M/mm3 (4.00-5.60); RDW 13.3 % (11.9-15.9); WHITE BLOOD COUNT 11.8 K/mm3 (4.0-10.8)
[2020-03-27 23:25] VITALS: TEMP 98; BMI 36.9
[2020-03-27 23:30] LABS: ALBUMIN 4.5 g/dl (3.4-5.0); BILIRUBIN,TOTAL 0.6 mg/dl (0.2-1); CALCIUM 9.3 mg/dl (8.5-10); CREATININE 1.2 mg/dl (0.55-1.3); POTASSIUM 3.9 mmol/L (3.5-5.1); TOT PROT 8.1 g/dl (6.4-8.2)
[2020-03-27 23:33] LABS: EPITHELIAL CELLS RARE /hpf
[2020-03-28 00:20] VITALS: BP 140/79; PULSE 70
== END 2020-03-28 00:52 | disposition home or self-care (01) ==
LOC: FER 23:02
PROC: 3E0333Z Introduction of Anti-inflammatory into Peripheral Vein, Percutaneous Approach (ICD-10-PCS; principal; 2020-03-27)
PROC: 3E033NZ Introduction of Analgesics, Hypnotics, Sedatives into Peripheral Vein, Percutaneous Approach (ICD-10-PCS; 2020-03-27)
PROC: 3E033GC Introduction of Other Therapeutic Substance into Peripheral Vein, Percutaneous Approach (ICD-10-PCS; 2020-03-27)
PROC: 3E0337Z Introduction of Electrolytic and Water Balance Substance into Peripheral Vein, Percutaneous Approach (ICD-10-PCS; 2020-03-27)
DX: N20.0 Calculus of kidney (principal)
CPT/HCPCS: 36415; 74176-TC; 80053; 81003; 81015; 85025; 99284-25

== ENCOUNTER 2020-08-20 08:41 | Emergency (ER) | payer OTHER ==
[2020-08-20 09:04] VITALS: BP 150/111; PULSE 70; TEMP 98.1; BMI 38.5
[2020-08-20] MEDS ORDERED: TRIAMCINOLONE ACET 40MG/1ML VIAL IM ONE (09:16)
[2020-08-20] MEDS ORDERED: LIDOCAINE HCL 2% (50ML VIAL) INF ONE (09:16)
[2020-08-20] MEDS ORDERED: BUPIVACAINE HCL 0.5% 250 MG/50 ML VIAL NR ONE (09:16)
[2020-08-20] MEDS ORDERED: COLCHICINE 0.6 MG CAP PO ONE (09:16)
[2020-08-20] MEDS ORDERED: LIDOCAINE HCL 2% (20ML MULTI-DOSE VIAL) ONE (09:30)
[2020-08-20] MEDS ORDERED: COLCHICINE 0.6 MG CAP ONE (09:30)
[2020-08-20 12:45] LABS: BF WBC & OTHER NUCLEATED CELLS 22389 /mm3
[2020-08-20 14:07] LABS: BODY FLUID MACROPHAGES 17 %
== END 2020-08-20 10:20 | disposition home or self-care (01) ==
LOC: FER 08:41
PROC: 0S9C3ZZ Drainage of Right Knee Joint, Percutaneous Approach (ICD-10-PCS; principal; 2020-08-20)
PROC: 3E023GC Introduction of Other Therapeutic Substance into Muscle, Percutaneous Approach (ICD-10-PCS; 2020-08-20)
DX: M25.461 Effusion, right knee (principal)
CPT/HCPCS: 36415; 83615; 84560; 87070; 87075; 87205; 89060; 99284-25

== ENCOUNTER 2021-05-19 09:01 | Emergency (ER) | payer OTHER ==
[2021-05-19 09:14] VITALS: BP 169/111; PULSE 76; TEMP 97.7; BMI 35.4
[2021-05-19] MEDS ORDERED: COLCHICINE 0.6 MG CAP PO ONE ×2 (09:30→11:07)
[2021-05-19] MEDS ORDERED: INDOMETHACIN 50 MG CAPSULE PO ONE (09:30)
[2021-05-19] MEDS ORDERED: INDOMETHACIN 25 MG CAPSULE ONE (09:34)
[2021-05-19] MEDS ORDERED: COLCHICINE 0.6 MG CAPSULE ONE ×2 (09:34→11:10)
[2021-05-19 10:50] LABS: ALBUMIN 3.9 g/dl (3.4-5.0); BILIRUBIN,TOTAL 0.7 mg/dl (0.2-1); CALCIUM 8.9 mg/dl (8.5-10); CREATININE 0.9 mg/dl (0.55-1.3); TOT PROT 7.3 g/dl (6.4-8.2)
[2021-05-19 12:45] LABS: BASO % 0.3 % (0-2.0); EOS % 0.1 % (0-4.5); HEMATOCRIT 47.3 % (35.4-49); HEMOGLOBIN 15.7 GM/dL (11.7-16.9); LYMPH % 41.8 % (8-40); MCH 28.9 pg (25.7-33.7); MCHC 33.1 g/dl (32.0-35.9); MEAN CELL VOLUME 87.3 fl (80-96); MEAN PLT VOLUME 8.2 fl (7.5-11.1); MONO % 8.8 % (3.8-10.2); PLATELET COUNT 287 10^3/uL (134-434); RBC 5.42 M/mm3 (4.00-5.60); RDW 14.4 % (11.9-15.9); WHITE BLOOD COUNT 12.1 K/mm3 (4.0-10.0)
== END 2021-05-19 11:31 | disposition home or self-care (01) ==
LOC: FER 09:01
DX: M10.9 Gout, unspecified (principal)
CPT/HCPCS: 36415; 73562-TC-RT-FY; 80053; 85025; 99284-25

== ENCOUNTER 2023-01-23 06:49 | Emergency (ER) | payer OTHER ==
[2023-01-23 06:55] VITALS: TEMP 97.7; BMI 37.5
[2023-01-23] MEDS ORDERED: KETOROLAC TROMETHAMINE 30 MG/1 ML VIAL IM ONE (07:35)
[2023-01-23] MEDS ORDERED: ACETAMINOPHEN 500 MG TABLET (FP) PO ONE (07:36)
[2023-01-23] MEDS ORDERED: KETOROLAC TROMETHAMINE 30 MG/1 ML VIAL ONE (07:46)
[2023-01-23] MEDS ORDERED: ACETAMINOPHEN 500 MG TABLET (FP) ONE (07:46)
[2023-01-23 08:00] VITALS: BP 212/128; PULSE 60; RESP 16
[2023-01-23 08:25] LABS: HEMOGLOBIN 17.7 G/dL (11.7-16.9); MCH 30.3 pg (25.7-33.7); MEAN CELL VOLUME 89.1 fl (80-96); MEAN PLT VOLUME 7.9 fl (7.5-11.1); PLATELET COUNT 249.6 10^3/uL (134-434); RBC 5.84 10^6/uL (4.00-5.60); RDW 14.4 % (11.9-15.9); WHITE BLOOD COUNT 11.4 10^3/uL (4.0-10.8)
[2023-01-23 08:28] LABS: PLATELET ESTIMATE ADEQUATE
[2023-01-23 08:31] LABS: ALBUMIN 5.1 g/dl (3.4-5.0); BLOOD UREA NITROGEN 11.8 mg/dl (7-18); CALCIUM 9.8 mg/dl (8.5-10.1); CREATININE 1.2 mg/dl (0.6-1.3); POTASSIUM 4.1 mmol/L (3.5-5.1); SGOT/AST 22.7 U/L (15-37); SGPT/ALT 19.6 U/L (7-52); TOT PROT 8.5 g/dl (6.4-8.2); URIC ACID 11.5 mg/dl (2.6-7.2)
[2023-01-23] MEDS ORDERED: amLODIPine BESYLATE 5 MG TABLET (FP) PO ONE (09:02)
[2023-01-23] MEDS ORDERED: amLODIPine BESYLATE 5 MG TABLET (FP) ONE (09:17)
== END 2023-01-23 11:04 | disposition home or self-care (01) ==
LOC: FER 06:49
PROC: 3E0233Z Introduction of Anti-inflammatory into Muscle, Percutaneous Approach (ICD-10-PCS; principal; 2023-01-23)
DX: M25.531 Pain in right wrist (principal); I10 Essential (primary) hypertension; M10.9 Gout, unspecified; M19.90 Unspecified osteoarthritis, unspecified site
CPT/HCPCS: 36415; 73110-TC-RT-FY; 80053; 84484; 84550; 85027; 93005; 99285-25

== ENCOUNTER 2024-02-03 08:15 | Emergency (ER) | payer OTHER ==
[2024-02-03 08:30] VITALS: BP 145/103; PULSE 73; RESP 20; TEMP 98.2; BMI 39.1
[2024-02-03] MEDS ORDERED: IBUPROFEN 400 MG TABLET (FP) PO ONE (08:55)
[2024-02-03] MEDS: IBUPROFEN 400 MG TABLET (FP) PO ONE (08:58)
== END 2024-02-03 10:37 | disposition home or self-care (01) ==
LOC: FER 08:15
DX: M25.531 Pain in right wrist (principal)
CPT/HCPCS: 73110-TC-RT-FY; 73130-TC-RT-FY; 99283-25